=== PATIENT | female | born 1945 | race Caucasian/White ===

== ENCOUNTER → 2017-08-12 13:59 | Outpatient (CLI) | payer MEDICARE, BC, SELFPAY ==
--- NOTE | 2017-08-12 09:14 | US_ITS ---
US breast RT complete ORDERING PHYSICIAN : Austen Caceres MD PATIENT AGE: 72 years GENDER: Female COMPARISON: Previous bilateral mammogram: December 2015 and March 2014. June 2016 left mammogram... Previous left breast ultrasound 2011 INDICATION: Palpable area 3:00 outer breast. The previously. Not palpable today TECHNIQUE: Ultrasound survey of entire right breast including axillary survey. Particular attention directed towards the palpable area at 3 days 4:00 Note:. This study cannot be dictated until now because error in the [facility] order ========= RIGHT BREAST ULTRASOUND including axillary survey: The previously noted palpable area was not as palpable to the patient today. However there is a ovoid relative hypoechoic focus within the deep portion subcutaneous fat just beneath, inferior dermal layer which seems to correspond with the palpable area.... This likely reflects a semisolid or thick proteinaceous sebaceous cyst in this location and this appearance. This elongated area length measures just over 5 mm but only 1.7 mm AP. It is seen at the 4 o'clock position and seems to correspond with the palpable area. On strongly favor benign features such as sebaceous cyst. This can be followed clinically. If enlarges than a follow-up ultrasound be warranted. Otherwise no cystic or solid area of concern at right breast. No architectural distortion Axillary survey reveals no suspicious areas. Benign-appearing lymph nodes. Would suggest bilateral annual mammogram within the next 4- 6 months as The patient is due for bilateral mammogram noting her last bilateral mammogram performed December 2015. ---- IMPRESSION: --- Right breast Ultrasound only: 1.. Small ovoid area within subcutaneous fat just beneath, deep dermal layer. This corresponds to the palpable area at 3- 4 o'clock position & This by far most likely a small benign sebaceous cyst. It can be followed Clinically.\ 2. Remainder the breast unremarkable by today's ultrasound\ BI-RADS Category: 2 Benign Finding(s) RECOMMENDED FOLLOW-UP: 6M - 6 MONTH FOLLOW-UP Patient due for bilateral mammogram. Suggest routine bilateral mammogram within the next 4-6 months Note. This this study Could not be dictated previously due to error of the [facility] order (A letter has been sent to the patient regarding results of the study.)
== END ==
PROVIDERS: Family Provider Family Medicine; PCP Family Medicine; Visit Provider Nurse Practitioner Obstetrics & Gynecology
DX: N63.41 Unspecified lump in right breast, subareolar (principal)
CPT/HCPCS: 76641

== ENCOUNTER → 2017-09-17 14:52 | Outpatient (CLI) | payer MEDICARE, BC, SELFPAY | PROVIDERS: PCP Family Medicine; Visit Provider Family Medicine | DX: R42 Dizziness and giddiness (principal) | CPT/HCPCS: 93225; 93226 ==

== ENCOUNTER → 2018-02-17 09:19 | Outpatient (CLI) | payer MEDICARE, BC, SELFPAY ==
--- NOTE | 2018-02-17 09:21 | MM_ITS ---
MM Dig screening mamm BI w/CAD ORDERING PHYSICIAN : Austen Caceres MD PATIENT AGE: 72 years GENDER: Female COMPARISON: Bilateral digital mammogram: December 2011, January 2013, March 2014, December left breast mammogram Also a previous right breast ultrasound 08/12/2017 INDICATION: ITS.REASON: Routine Screening Mammogram no new complaints. Takes Premarin. Noncontributory family history TECHNIQUE: Standard CC and MLO images were obtained. R2 CAD reviewed. FINDINGS: Mild to moderate residual fibroglandular elements. No suspicious dominant mass or discrete suspicious calcifications evident. RIGHT BREAST: Small focal area of density superior breast on the MLO view is noted and labeled A.. I suspect is most likely at the lateral breast but Most likely is a summation shadow but would benefit from spot views since it is more evident than on previous studies.. I recommend MLO, 90 degree spot views along with cc spot of the lateral and possibly central breast. Stable area of relative density at retroareolar region on MLO view & not of concern. Unchanged LEFT BREAST:Stable left breast no new findings follow-up in one year IMPRESSION: -...... 1. Right breast.: Focal area of density superior right breast on MLO view. Suspect summation shadow but it does warrant spot views to further evaluate 2. Left breast. Stable/Unchanged. Follow-up in one year BI-RADS Category: 0 Need Additional Imaging Evaluation RECOMMENDED FOLLOW-UP: IMM - IMMEDIATE FOLLOW-UP RECOMMENDED (A letter has been sent to the patient regarding results of the study.)
== END ==
PROVIDERS: Family Provider Family Medicine; PCP Family Medicine; Visit Provider Nurse Practitioner Obstetrics & Gynecology
DX: Z12.31 Encounter for screening mammogram for malignant neoplasm of breast (principal)
CPT/HCPCS: 77067

== ENCOUNTER → 2018-03-05 14:36 | Outpatient (CLI) | payer MEDICARE, BC, SELFPAY ==
--- NOTE | 2018-03-05 14:38 | MM_ITS ---
MM Dig mamm DX unilat RT CAD INDICATION: Follow-up abnormal mammogram ORDERING PHYSICIAN: Austen Caceres MD PATIENT AGE: 72 years COMPARISON: 02/17/2018 TECHNIQUE: Problem solving views of the right breast FINDINGS: The area of asymmetric density in the lateral aspect of the right breast and in the superior aspect of the right breast does appear to compress out as fibroglandular tissue no malignant appearing mass or malignant appearing microcalcification is evident. IMPRESSION: No convincing evidence of malignancy. Asymmetry in the right breast is probably due to asymmetric fibroglandular tissue BI-RADS Category: 3 Probably Benign Finding Short Term Follow-up RECOMMENDED FOLLOW-UP: 6M - 6 MONTH FOLLOW-UP (A letter has been sent to the patient regarding results of the study.)
== END ==
PROVIDERS: PCP Family Medicine; Visit Provider Nurse Practitioner Obstetrics & Gynecology
DX: R92.2 Inconclusive mammogram (principal)
CPT/HCPCS: 77065

== ENCOUNTER → 2019-02-25 15:35 | Outpatient (CLI) | payer MEDICARE, BC, SELFPAY ==
--- NOTE | 2019-02-25 15:37 | US_ITS ---
PROCEDURE: US BREAST RT COMPLETE CLINICAL INDICATION: Pt insisted on US -hx of abnormality in Rt Breast COMPARISON: US breast RT complete from 08/12/2017 MM DIG SCREENING MAMM BI W/CAD from 02/25/2019 FINDINGS: No cystic or solid nodules evident. Previously subcutaneous nodule at 4 o'clock is not demonstrated on today's exam IMPRESSION: Negative ultrasound the right breast Dictated by: Leonel Byrd MD 03/02/2019 10:30 Electronically signed by Leonel Byrd MD in [place] 03/02/2019 10:30
--- NOTE | 2019-02-25 15:37 | MM_ITS ---
PROCEDURE: MM DIG SCREENING MAMM BI W/CAD Patient Age:73Y CLINICAL INDICATION: Routine Screening Mammogram 73-year-old taking Premarin. No new complaints. Noncontributory family history.. COMPARISON: DMDXUAVL DIG MAMM-DX UNI ADD VIEWS-LT from 02/13/2012 DMSB DIG MAMM-SCREEN JOSH from 01/28/2013 DMSB DIG MAMM-SCREEN JOSH from 04/19/2014 DMSB DIG MAMM-SCREEN JOSH from 01/02/2016 DMDXUL DIG MAMM-DX UNI-LT W/CAD from 07/16/2016 [facility] MM Dig screening mamm BI w/CAD from 02/17/2018 DXRT MM Dig mamm DX unilat RT CAD from 03/05/2018 TECHNIQUE: Standard CC and MLO images were obtained. R2 CAD reviewed. FINDINGS: Of [id number] residual fibroglandular elements. No significant new areas of concern either breast but no new or dominant suspicious mass but no suspicious calcifications but Right breast. No new findings Stable fibroglandular elements retroareolar region MLO view, unchanged since studies dating back to 2013. Also note this minor area of density dissipate on the CC view. Left breast: No new findings. IMPRESSION: Stable bilateral mammogram. No significant new areas of concern. Bilateral follow-up 1 year recommended BI-RAD Category: 2 Benign Finding(s) FOLLOW-UP: 1YR 1 Year Follow-up (A letter has been sent to the patient regarding results of the study.) Dictated by: Дмитрий Hill MD 02/28/2019 10:21 Electronically signed by Дмитрий Hill MD in [place] 02/28/2019 10:21
== END ==
PROVIDERS: PCP Family Medicine; Visit Provider Nurse Practitioner Obstetrics & Gynecology
DX: Z12.31 Encounter for screening mammogram for malignant neoplasm of breast (principal); R92.8 Other abnormal and inconclusive findings on diagnostic imaging of breast; Z87.898 Personal history of other specified conditions
CPT/HCPCS: 76641; 77067

== ENCOUNTER 2019-12-30 10:00 | Outpatient (RCR) | payer MEDICARE, BC, SELFPAY | END 2019-12-30 10:47 | disposition home or self-care (01) | LOC: PT 10:00 | PROVIDERS: PCP Family Medicine; Visit Provider Orthopaedic Surgery | DX: M25.562 Pain in left knee (principal); Z96.652 Presence of left artificial knee joint | CPT/HCPCS: 97010; 97014; 97016; 97110; 97140; 97163; 97164; 97530; G0283 ==

== ENCOUNTER → 2020-01-31 10:04 | Outpatient (CLI) | payer MEDICARE, BC, SELFPAY ==
--- NOTE | 2020-01-31 10:04 | MM_ITS ---
PROCEDURE: MM DIG SCREENING MAMM BI W/CAD Digital Breast Tomosynthesis Included CLINICAL INDICATION: Routine Screening Mammogram There is no personal or family history of breast cancer. The patient currently is on Premarin. COMPARISON: MG [facility] MM Dig screening mamm BI w/CAD from 02/17/2018 MG DXRT MM Dig mamm DX unilat RT CAD from 03/05/2018 MG MM DIG SCREENING MAMM BI W/CAD from 02/25/2019 TECHNIQUE: Standard CC and MLO images and 3D Tomosynthesis was obtained. R2 CAD reviewed. FINDINGS: Mild to moderate scattered fibroglandular densities are seen in both breasts. There are 2 mole markers right breast. There is a mole marker left breast. A benign-appearing calcification left breast. There is no suspicious lesion and no suspicious microcalcifications. IMPRESSION: Fibrofatty parenchyma with no suspicious lesions seen BI-RAD Category: 2 Benign Finding(s) FOLLOW-UP: 1YR 1 Year Follow-up (A letter has been sent to the patient regarding results of the study.) Dictated by: Dr. Fuentes Lane MD 02/02/2020 09:[address] MD in [place] 02/02/2020 09:41
== END ==
PROVIDERS: PCP Family Medicine; Visit Provider Nurse Practitioner Obstetrics & Gynecology
DX: Z12.31 Encounter for screening mammogram for malignant neoplasm of breast (principal)
CPT/HCPCS: 77063; 77067

== ENCOUNTER → 2020-02-08 09:42 | Outpatient (CLI) | payer MEDICARE, BC, SELFPAY ==
--- NOTE | 2020-02-08 09:47 | XR_ITS ---
PROCEDURE: XR DEXA AXIAL SKELETON CLINICAL HISTORY: Postmenopausal COMPARISON: KALEN QUINTERO BONE3 BONE DENSITOMETRY(HIP:LT SPINE from 12/27/2016 FINDINGS: The right hip BMD is 0.786 with a T-score of -0.6. The left hip BMD is 0.762 with a T-score of -1.5. The lumbar spine BMD is 1.108 with a T-score of 0.6. Previously the lowest bone density was in the left femoral neck with a T-score of -0.9.. The bone mineral density has slightly decreased compared to the previous study IMPRESSION: This patient is considered osteopenic according to the World Health Organization criteria. Bone density is between 10 and 25 percent below young normal. Fracture risk is moderate. Treatment is advised. Based on these results a follow-up exam is recommended in 2 year. Dictated by: Leonel Byrd MD 02/10/2020 08:56 Leonel Byrd MD in [place] 02/10/2020 08:56
== END ==
PROVIDERS: PCP Family Medicine; Visit Provider Family Medicine
DX: M85.89 Other specified disorders of bone density and structure, multiple sites (principal)
CPT/HCPCS: 77080

== ENCOUNTER → 2020-08-15 09:54 | Outpatient (CLI) | payer MEDICARE, BC, SELFPAY ==
--- NOTE | 2020-08-15 10:02 | XR_ITS ---
PROCEDURE: XR CERVICAL SPINE 5V CLINICAL INDICATION: PHARYNGOESOPHAGEAL DYSPHAGIA COMPARISON: No exams were available for comparison FINDINGS: There is normal curvature and alignment. C1 through C7 appear intact. There is multilevel narrowing and sclerosis of the apophyseal joints. However oblique view show no significant neural foraminal narrowing on either side. There is no significant disc space narrowing throughout the cervical spine. The prevertebral soft tissues are normal and the odontoid is normal. IMPRESSION: Multilevel osteoarthritic changes of the apophyseal joints Dictated by: Dr. Fuentes Lane MD 08/15/2020 10:[address] MD in [place] 08/15/2020 10:43
== END ==
PROVIDERS: PCP Family Medicine; Visit Provider Family Medicine
DX: R13.14 Dysphagia, pharyngoesophageal phase (principal)
CPT/HCPCS: 72050

== ENCOUNTER → 2020-09-08 09:45 | Outpatient (CLI) | payer MEDICARE, BC, SELFPAY | PROVIDERS: Visit Provider Internal Medicine Gastroenterology | DX: Z01.812 Encounter for preprocedural laboratory examination (principal); Z20.822 Contact with and (suspected) exposure to COVID-19; Z13.810 Encounter for screening for upper gastrointestinal disorder; R13.10 Dysphagia, unspecified | CPT/HCPCS: U0003 ==

== ENCOUNTER 2020-09-11 11:16 | Day surgery (SDC) | payer MEDICARE, BC, SELFPAY ==
[2020-09-11] VITALS (7 sets, daily range): BP systolic 110–146; BP diastolic 73–84; PULSE 68–90; RESP 16–18; TEMP 36.3–36.6; O2SAT 93–98; BMI 28.3
--- NOTE | 2020-09-11 12:24 | P.PN_ITS ---
[facility] Anesthesia Checklist - Patient Identification Patient Identification: Arm Band - Structural Data Admitted From: Home Planned Operative Procedure/s: egd Consent for Planned Operative Procedure(s) Verified: Yes Verified Documents: Surgical Consent, History and Physical - NPO Status Verified Time NPO: 00:00 - Additional verifications Anesthesia Reactions: No - Airway Assessment C-Spine Mobility Assessed: Yes (mp2) TMJ Mobility Assessed: Yes Dentition: Good Dentition - Neurological Assessment Level of Consciousness: Awake, Alert - Anesthesia Plan Anesthesia Risk discussed: Yes Anesthesia Plan: Verified ASA Class: II Anesthesia Type: MAC [facility] History I have reviewed the patient's past medical history: Yes Medical History: Reports:: Hyperlipidemia, Hypertension Denies:: Cancer, Diabetes Mellitus Type 1, Diabetes Mellitus Type 2, Internal Pacemaker, MRSA, Seizures *Have you ever received a pneumonia vaccine?: Yes *Have you received a flu vaccine this season?: No Other Medical History: Reports: Arthritis, Hypothyroidism Anesthesia experience/problems:: nac Laterality Cases: Bilateral: Arthroscopy Knee, Tonsillectomy Other Surgeries: Yes: Tubal Ligation. No: Pacemaker Amputation: No Fractures: No - *Social History Last grade of school completed: Advanced degree Smoking Status: Never smoker Alcohol Intake: current Alcohol Intake Frequency:: holidays/special occasions only Substance Use Type: denies use *Occupational Status:: retired Housing: house Household Members: spouse, family *Travel in the last 8 weeks: None Family Hx:: Coronary Artery Disease, Heart Attack [employer] history: Tubal Ligation
--- NOTE | 2020-09-11 12:37 | HMH.PROC ---
[facility] Procedure Note Procedure Note:: Upper Endoscopy Procedure Report: Esophagogastroduodenoscopy with cold biopsies and TTS balloon dilation Endoscopost: Tereso Gao II, MD Referring Physician: Cameron Manning MD Date of Procedure: September 11, 2020 Equipment: Olympus GIF 190 standard upper endoscope Sedation: MAC sedation Indications: Mrs. Herman is a 75-year-old female with dysphagia that began 6 to 8 weeks ago. She does report burning in her throat but also some intermittent burning in the epigastrium. She describes this as heartburn. She did take omeprazole for 2 weeks and now takes this when necessary. She did have some dysphagia yesterday. She has some minor bloating but reports no belching or globus sensation. She reports no nausea or early satiety. This is her first upper endoscopy. She reports regular bowel function. Procedure: Prior to the procedure, a history and physical exam was performed, and patient's medications and allergies were reviewed. The risks, benefits and alternatives of the sedation and procedure were discussed with the patient. All questions were answered and informed consent was obtained. The patient was brought to the procedure room. Patient identification and proposed procedure were verified by the physician and the nurse. The patient was placed in a left lateral decubitus position and the scope was passed under direct vision. Throughout the procedure, the patient's blood pressure, pulse, and oxygen saturations were monitored continuously. The upper GI endoscopy was accomplished without difficulty. The patient tolerated the procedure well. Findings: The scope was passed directly into the upper esophagus and advanced to the third portion of the duodenum. The post bulbar duodenum and duodenal bulb were normal with normal mucosa and conniventes. The scope was withdrawn through a normal duodenal bulb and pylorus into the stomach. There was some bile reflux with linear reactive gastropathy of the antrum and body of the stomach. The remainder of the fundus of the stomach was grossly normal. Upon retroflexion there was a large hiatal hernia (6 cm). There were some linear Clif's erosions at the diaphragmatic hiatus. The diaphragmatic hiatus was at 40 cm. The gastroesophageal junction/top of the gastric folds was at 34 cm. Cold biopsies were taken from the antrum and lesser curvature of the stomach. The scope was then withdrawn into the esophagus. There was no evidence of reflux esophagitis or Alvarez's. There was a distal esophageal ring. There were tertiary contractions and evidence of moderate esophageal dysmotility. The entire esophagus was dilated to 60 [place]/20 mm with a TTS hydrostatic balloon. There was some resistance at the cricopharyngeus. The remainder of the esophageal mucosa was normal. Impression: 1. Schatzki's ring dilated to 20 mm 2. Cricopharyngeal spasm status post dilation to 20 mm 3. Nonerosive GERD with moderate esophageal dysmotility and large 6 cm hiatal hernia with Clif's erosions 4. Bile reflux with mild linear reactive gastropathy Plan: I will follow-up the biopsies. The patient does have some functional reflux. Given the size of her hiatal hernia, if she has recurrence of her dyspepsia and dysphagia, I would consider minimally invasive (robotic or laparoscopic) hiatal hernia repair. I would also like to check hemoglobin/hematocrit and iron studies.
[2020-09-11 13:50] LABS: Hematocrit 37.3 % (37.0-47.0); Hemoglobin 11.5 g/dL (12.2-16.2)
[2020-09-11 14:46] LABS: Iron 96 ug/dL (37-170)
[2020-09-11 14:55] LABS: Total Iron Binding Capacity 360 ug/dL (265-497)
[2020-09-11 17:35] LABS: Ferritin 20.7 ng/ml (11.1-264)
== END 2020-09-11 13:55 | disposition home or self-care (01) ==
LOC: OUTP 11:19
PROVIDERS: PCP Family Medicine; Visit Provider Internal Medicine Gastroenterology
PROC: 0DJ08ZZ Inspection of Upper Intestinal Tract, Via Natural or Artificial Opening Endoscopic (ICD-10-PCS; CPT 43235; principal; 2020-09-11 12:00)
DX: K22.2 Esophageal obstruction (principal); J39.2 Other diseases of pharynx; K22.4 Dyskinesia of esophagus; K44.0 Diaphragmatic hernia with obstruction, without gangrene; K22.10 Ulcer of esophagus without bleeding; K21.9 Gastro-esophageal reflux disease without esophagitis; K31.9 Disease of stomach and duodenum, unspecified; E78.5 Hyperlipidemia, unspecified; I10 Essential (primary) hypertension; E03.9 Hypothyroidism, unspecified; M19.90 Unspecified osteoarthritis, unspecified site; Z82.3 Family history of stroke
CPT/HCPCS: 43239; 43249; 36415; 82728; 83540; 83550; 85014; 85018; 88305; C1726

== ENCOUNTER → 2020-12-04 08:03 | Outpatient (CLI) | payer MEDICARE, BC, SELFPAY | PROVIDERS: PCP Family Medicine; Visit Provider Family Medicine | DX: Z20.822 Contact with and (suspected) exposure to COVID-19 (principal) | CPT/HCPCS: U0003 ==

== ENCOUNTER 2021-01-03 10:00 | Outpatient (RCR) | payer MEDICARE, BC, SELFPAY ==
--- NOTE | 2020-12-06 11:02 | HMH.PTOPEV ---
PT Outpatient Evaluation Rehab PT Outpatient Evaluation Start: 12/06/20 10:48 Freq: Status: Active Protocol: Document 12/06/20 10:48 PETER (Rec: 12/06/20 11:02 PETER [id number]) Electronically Signed By Leo Christiansen, PT 12/06/20 10:48 Outpatient Therapy Subjective History Subjective History Patient is a 75 year old female presenting to outpatient PT with reports of acute LBP without radicular symptoms of inidious onset. Patient reports hx of recurring LBP episodes with LLE radicular symptoms. She most recently completed a dose steriods which have provided some significant relief. No recent imaging to report. 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 Comorbidities include hx of hiatal hernia, OA, B TKA, HTN and HL. Chief Complaint Pain Symptom Type Ache,Sharp Symptoms Relieved By Rest/Positioning,Heat,OTC Meds Symptoms Aggravated By Standing,Bending/Stooping, Physical Activity,Walking, Lifting Prior Functional Limitations None Current Functional Limitations Lifting,Housework,Standing, Walking,Bending/Stooping Symptom Description Intermittent Level of pain today (0-10) 0 Pain scale - at its best (0-10) 0 Pain scale - at its worst (0-10) 9 Lumbopelvic Eval Posture Thoracic Spine Posture Standing Position Neutral Lumbar Spine Posture Standing Position Increased Lordosis Assistive device Assistive Devices None / NA Palapation tenderness bilateral Lumbar/Sacral Palpation Findings Tenderness Lumbar/Sacral Palpation Overall Comment B SIJ/upper gluteal mm 2/4 Accessory Movement S1 bilateral Range of Motion Lumbar Spine ROM Reason Not Measured Within Functional Limits Manual Muscle Test Bilateral Knee Extension Strength Grade 5 Normal Knee Flexion Strength Grade 5 Normal Hip Flexion Strength Grade 5 Normal Extensor Hallucis Longus Strength Grade 5 Normal Ankle Dorsiflexion Strength Grade 5 Normal Gastronemius/Soleus Strength Grade 5 Normal Special Tests Hip Travis (JOELLE) Test Positive Left,Positive Right Hip Kimmie Test Positive Left,Positive Right Hip Piriformis Test Positive Left,Positive Right Sciatic Nerve Tension Test Negative Left,Negative Right Odilon Test
== END 2021-01-03 10:05 | disposition home or self-care (01) ==
LOC: PT 10:00
PROVIDERS: PCP Family Medicine; Visit Provider Family Medicine
DX: M54.5 Low back pain (principal)
CPT/HCPCS: 20561; 97010; 97014; 97110; 97163; G0283

== ENCOUNTER → 2021-01-30 12:55 | Outpatient (CLI) | payer MEDICARE, BC, SELFPAY ==
--- NOTE | 2021-01-30 12:56 | MM_ITS ---
PROCEDURE INFORMATION: Exam: MG Bilateral Screening 3D Mammography Exam date and time: 01/30/2021 12:56 PM Age: 75 years old Clinical indication: Encounter for screening mammogram for malignant neoplasm of breast TECHNIQUE: Imaging protocol: Bilateral screening tomosynthesis and 2D mammography including computer-aided detection (CAD) when performed. COMPARISON: No relevant prior studies available. FINDINGS: MAMMOGRAPHY: Breast composition: The breast tissue is heterogeneously dense, which may obscure small masses. Mass: None. Architectural distortion: None. Calcifications: No suspicious calcifications. Asymmetric density: None. Skin thickening: None. Axillary adenopathy: None. IMPRESSION: No mammographic evidence of malignancy. Annual screening is recommended unless otherwise clinically indicated. ASSESSMENT: BI-RADS Category 1: Negative
== END ==
PROVIDERS: PCP Family Medicine; Visit Provider Nurse Practitioner Obstetrics & Gynecology
DX: Z12.31 Encounter for screening mammogram for malignant neoplasm of breast (principal)
CPT/HCPCS: 77063; 77067

== ENCOUNTER 2021-05-02 07:20 | Emergency (ER) | payer MEDICARE, BC, SELFPAY ==
[2021-05-02] VITALS (11 sets, daily range): BP systolic 113–141; BP diastolic 68–124; PULSE 69–80; RESP 15–18; TEMP 36.9; O2SAT 93–98; BMI 28.3
--- NOTE | 2021-05-02 07:32 | CT_ITS ---
FINAL REPORT TECHNIQUE: Axial images were performed through the brain.This study was performed with techniques to keep radiation doses as low as reasonably achievable, (ALARA). Individualized dose reduction techniques using automated exposure control or adjustment of mA and/or kV according to the patient''s size were employed. CLINICAL HISTORY: fall, confusion FINDINGS: There is mild atrophy. The ventricles are normal in size for the degree of atrophy. There is no extra-axial fluid or midline shift. There is no evidence of acute hemorrhage or mass. There is mild mucoperiosteal thickening in the left maxillary sinus. There are hypoplastic mastoid air cells. There is no acute osseous abnormality. IMPRESSION: Atrophy. No acute intracranial process. Reviewed, Interpreted and Dictated by Camron iWlson MD Transcribed by Curt Sy Authenticated by Camron Wilson MD on 05/02/2021 08:12:33 AM [facility]
--- NOTE | 2021-05-02 07:32 | CT_ITS ---
FINAL REPORT CLINICAL HISTORY: fall, confusion FINDINGS: CT CERVICAL SPINE Axial CT images were performed through the cervical spine. Coronal and sagittal reformats were submitted and reviewed. This study was performed with techniques to keep radiation doses as low as reasonably achievable (ALARA). Individualized dose reduction techniques using automated exposure control or adjustment of mA and/or kV according to the patient's size were employed. FINDINGS: There is no acute fracture or subluxation. The vertebral alignment is normal. There is moderate disc space narrowing at C4-5 and C5-6 with posterior osteophyte formation. At C4-5 there is moderate endplate hypertrophy eccentric to the left with asymmetric facet hypertrophy and moderate left neural foraminal narrowing. At C5-6 there is endplate hypertrophy with mild bilateral neural foraminal narrowing. There is subcutaneous emphysema throughout the right cervical region of uncertain significance. No pneumothorax is seen on the limited images through the lung apices. IMPRESSION: No acute fracture. Bilateral facet hypertrophy, right greater than left. Subcutaneous emphysema throughout the right cervical region of uncertain significance. No pneumothorax identified on the limited images through the lung apices. Reviewed, Interpreted and Dictated by Camron Wilson MD Transcribed by Curt Sy Authenticated by Camron Wilson MD on 05/02/2021 08:21:[address] [facility]
--- NOTE | 2021-05-02 07:34 | PC.NURSE ---
rad notified of CT orders on pt
--- NOTE | 2021-05-02 07:38 | PC.NURSE ---
pt to CT
[2021-05-02 07:47] LABS: Basophils % 0.4 % (0.1-2.0); Eosinophils # 0.1 K/mm3 (0.0-0.4); Eosinophils % 0.5 % (0.1-12.0); Hematocrit 37.8 % (37.0-47.0); Hemoglobin 12.1 g/dL (12.2-16.2); Lymphocytes # 1.8 K/mm3 (0.7-4.5); Lymphocytes % 16.6 % (10-50); Mean Corpuscular HGB Conc 32.1 g/dL (31.8-35.4); Mean Corpuscular Volume 93.5 fl (81-99); Mean Platelet Volume 8.2 fl (7.4-10.4); Monocytes # 0.7 K/mm3 (0.1-1.0); Neutrophils # 8.4 K/mm3 (1.8-7.8); Neutrophils % 76.5 % (37.0-80.0); Platelet Count 290 K/mm3 (142-424); Red Blood Count 4.04 M/mm3 (4.20-5.40); Red Cell Distribution Width 13.7 % (11.5-17.5)
[2021-05-02 07:57] LABS: Alanine Aminotransferase 30 U/L (12-78); Albumin Level 4.6 g/dl (3.5-5.0); Albumin/Globulin Ratio 1.6 (1.1-1.8); Alkaline Phosphatase 92 U/L (38-126); Aspartate Amino Transferase 53 U/L (14-36); Bilirubin,Total 0.7 mg/dl (0.2-1.3); Blood Urea Nitrogen 15 mg/dl (7-17); Carbon Dioxide 30 mmol/L (22.0-30.0); Chloride 90 mmol/L (98-107); Creatinine Clearance Estimated 53 mL/min (50-200); Estimated Glomerular Filt Rate 70 ml/min (>60); GFR (African American) 85 ML/MIN (>60); Globulin 2.9 g/dL (1.3-3.2); Glucose 96 mg/dl (74-100); Sodium 127 mmol/L (136-145); Total Protein,Serum 7.5 g/dl (6.3-8.2)
--- NOTE | 2021-05-02 08:45 | XR_ITS ---
FINAL REPORT CLINICAL HISTORY: cough FINDINGS: SINGLE VIEW CHEST The heart is normal in size. The mediastinum is unremarkable. There is a little bit of atelectasis at the lung bases. There is no pneumothorax. IMPRESSION: Bibasilar atelectasis. Reviewed, Interpreted and Dictated by Camron Wilson MD Transcribed by Liliane Shannon Authenticated by Camron Wilson MD on 05/02/2021 10:12:08 AM [facility]
--- NOTE | 2021-05-02 08:45 | HMH.EDAMS ---
ED Disposition Clinical Impression: Hyponatremia Altered mental status Qualifiers: Altered mental status type: transient alteration of awareness Qualified Code(s): R40.4 - Transient alteration of awareness Disposition: Home, Self-Care Condition on Discharge: Good Instructions: DI for Altered Mental Status Referrals: Mikey Manning MD [Primary Care Provider] - - Critical Care Critical Care Time: No Attestation: On 05/02/21, the high probability of a clinically significant, sudden or life threatening deterioration of the following system(s) required my full and direct attention, intervention and personal management. The time I documented below is in addition to time spent performing reported procedures but includes the following listed in this critical care notation. Medical Decision Making - Medical Records Medical records reviewed: Yes: I reviewed the patient's medical records. - Juan Inquiry Pt receiving controlled substance: No Vital Signs: 05/02/21 07:21 05/02/21 07:26 05/02/21 07:30 Temperature 98.4 F Temperature Source Oral Pulse Rate 80 73 Pulse Rate [Right Radial] 80 Respiratory Rate 18 15 15 Blood Pressure 139/70 129/75 Blood Pressure [Right Arm] 139/70 Blood Pressure Mean 101 96 Blood Pressure Mean [Right Arm] 93 Blood Pressure Source [Right Arm] Automatic Cuff Blood Pressure Position [Right Arm] Sitting 02 Sat by Pulse Oximetry 93 L 95 96 Oxygen Delivery Method Room Air 05/02/21 08:00 05/02/21 08:30 05/02/21 09:00 Temperature Temperature Source Pulse Rate 72 78 75 Pulse Rate [Right Radial] Respiratory Rate 16 16 16 Blood Pressure 137/87 125/85 129/75 Blood Pressure [Right Arm] Blood Pressure Mean 103 Blood Pressure Mean [Right Arm] Blood Pressure Source [Right Arm] Blood Pressure Position [Right Arm] 02 Sat by Pulse Oximetry 95 98 98 Oxygen Delivery Method 05/02/21 09:52 05/02/21 10:00 05/02/21 10:30 Temperature Temperature Source Pulse Rate 71 69 80 Pulse Rate [Right Radial] Respiratory Rate 16 Blood Pressure 113/90 123/75 141/124 H Blood Pressure [Right Arm] Blood Pressure Mean 97 97 129 Blood Pressure Mean [Right Arm] Blood Pressure Source [Right Arm] Blood Pressure Position [Right Arm] 02 Sat by Pulse Oximetry 96 98 97 Oxygen Delivery Method 05/02/21 10:43 Temperature Temperature Source Pulse Rate 69 Pulse Rate [Right Radial] Respiratory Rate 18 Blood Pressure 117/71 Blood Pressure [Right Arm] Blood Pressure Mean 89 Blood Pressure Mean [Right Arm] Blood Pressure Source [Right Arm] Blood Pressure Position [Right Arm] 02 Sat by Pulse Oximetry 98 Oxygen Delivery Method - Lab Data Lab Results 05/02/21 07:30: WBC 11.0 H, RBC 4.04 L, Hgb 12.1 L, Hct 37.8, MCV 93.5, MCH 30.0, MCHC 32.1, RDW 13.7, Plt Count 290, MPV 8.2, Neut % (Auto) 76.5, Lymph % (Auto) 16.6, [place] % (Auto) 6.0, Eos % (Auto) 0.5, Baso % (Auto) 0.4, Neut # (Auto) 8.4 H, Lymph # (Auto) 1.8, [place] # (Auto) 0.7, Eos # (Auto) 0.1, Baso # (Auto) 0.0 05/02/21 07:30: Sodium 127 L, Potassium 4.0, Chloride 90 L, Carbon Dioxide 30, Anion Gap 11.0, BUN 15, Creatinine 0.80, Estimated Creat Clear 53, Estimated GFR 70, Est GFR ( Amer) 85, Glucose 96, Calcium 10.0, Total Bilirubin 0.7, AST 53 H, ALT 30, Alkaline Phosphatase 92, Total Protein 7.5, Albumin 4.6, Globulin 2.9, Albumin/Globulin Ratio 1.6 05/02/21 10:43: Urine Color Yellow, Urine Appearance Clear, Urine pH 6.0, Ur Specific [place] 1.010, Urine Protein Negative, Urine Glucose (UA) Negative, Urine Ketones Negative, Urine Blood Negative, Urine Nitrate Negative, Urine Bilirubin Negative, Urine Urobilinogen 0.2, Ur Leukocyte Esterase Trace, Urine RBC None, Urine WBC Occasional, Ur Squamous Epith Cells 3-5, Urine Bacteria Trace Result diagrams: 05/02/21 07:30 05/02/21 07:30 - Radiology Data #1 Image(s): Chest Image Reviewed: Yes I reviewed the patient's r
--- NOTE | 2021-05-02 08:58 | PC.NURSE ---
on the phone with
[2021-05-02 10:56] LABS: Microscopic, Urine URINE MICROSCOPIC (MICROSCOPIC)
[2021-05-02 10:58] LABS: Appearance,Urine CLEAR (Clear); Bilirubin,Urine Negative (Negative); Blood, Urine Negative (Negative); Color,Urine YELLOW (Yellow); Glucose,Urine (UA) Negative (Negative); Ketones,Urine Negative (Negative); Leukocyte Esterase,Urine TRACE (Negative); Nitrate,Urine Negative (Negative); Protein,Urine Negative (Negative); Urobilinogen,Urine 0.2 EU/dl (0.2)
[2021-05-02 11:11] LABS: Bacteria,Urine Trace /lpf; WBC,Urine Occasional #/hpf (0-3)
== END 2021-05-02 12:05 | disposition home or self-care (01) ==
PROVIDERS: Emergency Provider Emergency Medicine; PCP Family Medicine
DX: R40.4 Transient alteration of awareness (principal); R41.82 Altered mental status, unspecified; E87.1 Hypo-osmolality and hyponatremia; W06.XXXA Fall from bed, initial encounter; Y92.013 Bedroom of single-family (private) house as the place of occurrence of the external cause; I10 Essential (primary) hypertension; E78.5 Hyperlipidemia, unspecified; Z79.899 Other long term (current) drug therapy
CPT/HCPCS: 70450; 71045; 72125; 80053; 81001; 85025; 99283

== ENCOUNTER → 2021-05-14 15:49 | Outpatient (CLI) | payer MEDICARE, BC, SELFPAY | PROVIDERS: PCP Family Medicine; Visit Provider Family Medicine | DX: U07.1 COVID-19 (principal); J02.9 Acute pharyngitis, unspecified | CPT/HCPCS: C9803; U0003; U0005 ==

== ENCOUNTER → 2022-02-19 10:06 | Outpatient (CLI) | payer MEDICARE, BC, SELFPAY ==
--- NOTE | 2022-02-19 10:07 | MM_ITS ---
PROCEDURE INFORMATION: Exam: MG Bilateral Screening 3D Mammography Exam date and time: 02/19/2022 10:06 AM Age: 76 years old Clinical indication: Screening. No family history of breast cancer. TECHNIQUE: Imaging protocol: Bilateral Screening tomosynthesis and 2D mammography including computer-aided detection (CAD) when performed. COMPARISON: 1. MG MM DIG SCREENING MAMM BI W/CAD 01/30/2021 12:59 PM 2. MG MM DIG SCREENING MAMM BI W/CAD 01/31/2020 10:03 AM 3. MG MM DIG SCREENING MAMM BI W/CAD 02/25/2019 4:13 PM 4. MG DXRT MM Dig mamm DX unilat RT CAD 03/05/2018 2:49 PM 5. MG DMDXUAVL DIG MAMM-DX UNI ADD VIEWS-LT 02/13/2012 1:15 PM 6. MG DMSB DIGITAL MAMM-SCREEN BILATERAL 12/28/2009 8:45 AM FINDINGS: MAMMOGRAPHY: Breast composition: The breasts are heterogeneously dense, which may obscure small masses. Mass: None. Architectural distortion: None. Calcifications: No suspicious calcifications. Asymmetric density: No developing asymmetry Skin thickening: None. Axillary adenopathy: None. IMPRESSION: No mammographic evidence of malignancy. Annual screening is recommended unless otherwise clinically indicated. ASSESSMENT: BI-RADS Category 1: Negative
== END ==
PROVIDERS: PCP Family Medicine; Visit Provider Nurse Practitioner Obstetrics & Gynecology
DX: Z12.31 Encounter for screening mammogram for malignant neoplasm of breast (principal)
CPT/HCPCS: 77063; 77067

== ENCOUNTER → 2022-03-25 14:42 | Outpatient (CLI) | payer MEDICARE, BC, SELFPAY ==
--- NOTE | 2022-03-25 14:49 | ECG_ITS ---
APPROVED REPORT Exam: Resting ECG HR:97 bpm ECG Measurements Heart Rate 97 AXES IL 203 P 70 QRSd 113 QRS 98 QT 375 T -26 QTc 429 Conclusion SINUS RHYTHM WITH OCCASIONAL VENTRICULAR PREMATURE COMPLEXES BORDERLINE RIGHT AXIS DEVIATION [QRS AXIS > 90] POSSIBLE ANTERIOR MYOCARDIAL INFARCTION , PROBABLY OLD [30 ms Q WAVE IN V3/V4, OR R < 0.2 mV IN V4] MODERATE T-WAVE ABNORMALITY, CONSIDER INFERIOR ISCHEMIA [-0.1+ mV T-WAVE IN II/aVF] ABNORMAL ECG UNCONFIRMED REPORT Electronically signed by : Abhishek Bai MD 03/25/2022 21:07:48
== END ==
PROVIDERS: PCP Psychiatry & Neurology Sleep Medicine; Visit Provider Psychiatry & Neurology Sleep Medicine
DX: I49.9 Cardiac arrhythmia, unspecified (principal)
CPT/HCPCS: 93005

== ENCOUNTER → 2022-04-03 10:08 | Outpatient (CLI) | payer MEDICARE, BC, SELFPAY | PROVIDERS: PCP Family Medicine; Visit Provider Family Medicine | DX: R94.31 Abnormal electrocardiogram [ECG] [EKG] (principal) | CPT/HCPCS: 93306 ==

== ENCOUNTER → 2022-09-27 08:55 | Outpatient (CLI) | payer MEDICARE, BC, SELFPAY ==
--- NOTE | 2022-09-27 09:05 | XR_ITS ---
FINAL REPORT TECHNIQUE: Bone densitometry calculations of the lumbar spine and left hip were obtained. CLINICAL HISTORY: osteopenia FINDINGS: Using L1-4, the bone mineral density of the spine is 1.06 g/cm2, corresponding to T-score of 0.1. Using the left hip, the bone mineral density of the femoral neck is 0.6 g/cm2, corresponding to a T-score of -2.1. Using the right hip, the bone mineral density of the femoral neck is 0.9 g/cm2, corresponding to a T-score of -0.4 NOTE: T-score: Standard deviation compared with peak bone mass of young adult mean. *Following the recommendations of the International Society of Bone densitometry, classification of hip BMD is based on the lower of two T-scores; total hip or femoral neck. IMPRESSION: Normal bone mineral density of the lumbar spine and right hip. Osteopenia of the left hip. Value may be artificially inflated of the lumbar spine due to sclerosis. FRAX 10 year fracture risk is 1.0% for a hip fracture and 8.8% for a major osteoporotic fracture. Reviewed, Interpreted and Dictated by Camron Wilson MD Transcribed by Sofia Montague Authenticated and [facility]
== END ==
PROVIDERS: PCP Family Medicine; Visit Provider Family Medicine
DX: M85.89 Other specified disorders of bone density and structure, multiple sites (principal)
CPT/HCPCS: 77080

== ENCOUNTER → 2023-02-20 15:00 | Outpatient (CLI) | payer MEDICARE, BC, SELFPAY ==
--- NOTE | 2023-02-20 15:00 | MM_ITS ---
PROCEDURE INFORMATION: Exam: MG Bilateral Screening 3D Mammography Exam date and time: 02/20/2023 2:54 PM Age: 77 years old Clinical indication: Screening mammogram TECHNIQUE: Imaging protocol: Bilateral Screening tomosynthesis and 2D mammography including computer-aided detection (CAD) when performed. COMPARISON: 1. MG MM DIG SCREENING MAMM BI W/CAD 02/19/2022 10:06 AM 2. MG MM DIG SCREENING MAMM BI W/CAD 01/30/2021 12:59 PM 3. MG MM DIG SCREENING MAMM BI W/CAD 01/31/2020 10:03 AM 4. MG MM DIG SCREENING MAMM BI W/CAD 02/25/2019 4:13 PM FINDINGS: MAMMOGRAPHY: Breast composition: There are scattered areas of fibroglandular density. Mass: None. Architectural distortion: No new or suspicious architectural distortion. Calcifications: No new or suspicious calcifications are present Asymmetric density: No new or suspicious asymmetric density is present Skin thickening: None. Axillary adenopathy: None. IMPRESSION: No mammographic evidence of malignancy. Recommend annual screening mammography unless otherwise clinically indicated. ASSESSMENT: BI-RADS category 1: Negative
== END ==
PROVIDERS: PCP Family Medicine; Visit Provider Nurse Practitioner Obstetrics & Gynecology
DX: Z12.31 Encounter for screening mammogram for malignant neoplasm of breast (principal)
CPT/HCPCS: 77063; 77067

== ENCOUNTER 2023-08-14 09:36 | Outpatient (CLI) | payer MEDICARE, BC, SELFPAY ==
[2023-08-14 10:21] LABS: Basophils # 0.1 K/mm3 (0-0.2); Basophils % 1.6 % (0.1-2.0); Eosinophils # 0.4 K/mm3 (0.0-0.4); Eosinophils % 8.5 % (0.1-12.0); Hematocrit 38.6 % (37.0-47.0); Hemoglobin 12.8 g/dL (12.2-16.2); Lymphocytes # 1.9 K/mm3 (0.7-4.5); Lymphocytes % 38.4 % (10-50); Mean Corpuscular HGB Conc 33.1 g/dL (31.8-35.4); Mean Corpuscular Hemoglobin 31.7 pg (27.0-31.2); Mean Corpuscular Volume 95.8 fl (81-99); Mean Platelet Volume 8.2 fl (7.4-10.4); Monocytes # 0.3 K/mm3 (0.1-1.0); Monocytes % 5.5 % (1.7-9.3); Neutrophils # 2.3 K/mm3 (1.8-7.8); Neutrophils % 45.9 % (37.0-80.0); Platelet Count 266 K/mm3 (142-424); Red Blood Count 4.02 M/mm3 (4.20-5.40)
[2023-08-14 10:57] LABS: Chloride 107 mmol/L (98-107); Potassium 4.3 mmoL/L (3.5-5.1); Sodium 137 mmol/L (136-145)
[2023-08-14 11:00] LABS: Alanine Aminotransferase 23 U/L (12-78); Albumin Level 3.8 g/dl (3.5-5.0); Albumin/Globulin Ratio 1.5 (1.1-1.8); Alkaline Phosphatase 77 U/L (38-126); Anion Gap 10.3 mEq/L (5-15); Aspartate Amino Transferase 39 U/L (14-36); Bilirubin,Total 0.7 mg/dl (0.2-1.3); Blood Urea Nitrogen 23 mg/dl (7-17); Calcium 9.6 mg/dl (8.4-10.2); Carbon Dioxide 24 mmol/L (22.0-30.0); Chol/HDL Ratio 1.8 (1-3.5); Cholesterol 147 mg/dl (140-200); Estimated Glomerular Filt Rate 81 ml/min (>60); GFR (African American) 98 ML/MIN (>60); Globulin 2.6 g/dL (1.3-3.2); Glucose 108 mg/dl (74-100); HDL Cholesterol 80 mg/dl (40-60); Total Protein,Serum 6.4 g/dl (6.3-8.2); Triglycerides 62 mg/dl (30-150); VLDL Cholesterol 12 mg/dL (0-40)
[2023-08-14 11:11] LABS: Direct LDL Cholesterol 63.22 mg/dL (100-129)
[2023-08-14 11:31] LABS: Thyroid Stimulating Hormone 3.19 uIU/mL (0.465-4.68)
== END 2023-08-14 23:59 | disposition home or self-care (01) ==
LOC: LAB 09:38
PROVIDERS: PCP Family Medicine; Visit Provider Family Medicine
DX: E78.00 Pure hypercholesterolemia, unspecified (principal); E03.9 Hypothyroidism, unspecified; I10 Essential (primary) hypertension
CPT/HCPCS: 36415; 80053; 80061; 84443; 85025

== ENCOUNTER 2024-11-25 15:00 | Outpatient (RCR) | payer MEDICARE, BC, SELFPAY ==
--- NOTE | 2024-11-01 17:01 | HMH.PTOPEV ---
PT Outpatient Evaluation Rehab PT Outpatient Evaluation Start: 11/01/24 15:18 Freq: Status: Active Protocol: Document 11/01/24 15:18 AMBER (Rec: 11/01/24 17:01 AMBER [id number]) E-signed By Henri Banks, PT Outpatient Therapy Subjective History Subjective History This is the initial PT eval or Park Case, 79 yowf who presents with c/o increased low back pain x ~ 3 mos this episode. She reports hx of chronic low back pain for many years, worse on the L side, but this episode has increased on the R side. She reports insidious onset of symptoms and symptoms are significantly worse with prolonged standing or walking. She reports pain is sharp and reduced with sitting. She reports PMH of HTN , OA, hypothyroid, B TKA. Chief Complaint Pain Symptom Type Sharp,Burning Symptoms Relieved By Rest/Positioning Symptoms Aggravated Standing,Physical Activity,Walking By Prior Functional None Limitations Current Functional Standing,Walking Limitations Symptom Description Activity Dependent Level of pain today 4 (0-10) Pain scale - at its 7 worst (0-10) Lumbopelvic Eval Palapation tenderness bilateral lumbar spinal Yes: 2/4 L4/5 - L5/S1 tenderness Lumbar/Sacral Tenderness Palpation Findings Accessory Movement L-spine Vertebrae Central P/A [place] Accessory Movements that Elicit Symptoms L4 bilateral L5 bilateral S1 bilateral Range of Motion Lumbar Spine Active 0-65 Flexion Range of Motion (degrees) Lumbar Spine Active 0-20 Extension Range of Motion (degrees) Left Lumbar Spine 0-20 Lateral Flexion Active Range of Motion (degrees) Right Lumbar Spine 0-20 Lateral Flexion Active Range of Motion (degrees) Manual Muscle Test Bilateral Knee Extension 5 Normal Strength Grade Knee Flexion 5 Normal Strength Grade Hip Flexion Strength 4 Good Grade Hip Abduction 4+ Good+ Strength Grade Hip Adduction 5 Normal Strength Grade Ankle Dorsiflexion 5 Normal Strength Grade Gastronemius/Soleus 5 Normal Strength Grade Special Tests Forward Bending Test Negative Left,Negative Right - Standing Hip Scouring ( Negative Left,Negative Right Quadrant) Test Hip Travis (JOELLE) Negative Left,Negative Right Test Hip Bowstring (Cram) Negative Left,Negative Right Test Sciatic Nerve Negative Left,Negative Right Tension Test Sacroiliac Joint Negative Left,Negative Right Compression Test Sacroiliac Joint Negative Left,Negative Right Distraction Test Lumbar Long [place] Positive Distraction Test/ Manual Traction Oswestry Index Section 1 Pain Intensity The pain is moderate and does not vary much Section 2 Personal Care ( my way of washing or dressing even though it causes Washing,Dresing) some pain Section 3 Lifting Pain prevents me from lifting weights off the floor Section 4 Walking I cannot walk more than one mile wihtout increasing pain Section 5 Sitting Pain prevents me from sitting for more than one hour Section 6 Standing I cannot stand more than 1 hour without increasing pain Section 7 Sleeping Because of my pain, my normal night's sleep is less than 6 hours sleep Section 8 Social Life My social life is normal but increases the degree of pain Section 9 Traveling I get extra pain while traveling, but it does not compel me to seek al Section 10 Changing Degreee of My pain is neither getting better or worse Pain Score and Risk Level Oswestry Sc 20 Oswestry Risk Level Moderate Disability Outpatient Therapy Assessment Impairments Problems/ Palpation Tenderness,Impaired Strength,Impaired Impairmments Endurance,Impaired Walking,Impaired Standing,Impaired Household Care,Impaired Recreational Activities, Subjective C/O Pain,Impaired Self Care/Self Management Prognosis Rehab Potential Good Comment Skilled therapy is indicated to reduce pain with standing, walking, and housework and to improve strength in order to aid pt return to PLOF. Clinical Impression Consistent with Yes Diagnosis Short Term Goals Number of Weeks 4 Decreased Palpation Yes: 1/4 B lumbosacral jt area Tenderness Increase Strength Yes: B LE at least 4+/5 throughout Increase Ability to Yes: 15 min without pain. Walk Improve Oswestry Yes: 17 or less Score Decrease Subjective Yes: 6/10 at worst in low back C/O Pain Patient to be Ind w/ Yes HEP Fisher Eel Goals Number of Weeks 8 Decreased Palpation Yes: 0/4 B lumbosacral area Tenderness Increase Strength Yes: B LE 5/5 throughout Increase Ability to Yes: 30 mins without pain Walk Improve Oswestry Yes: 14 or less Score Decrease Subjective Yes: 3/10 at worst in low back C/O Pain Patient to be Ind w/ Yes Advanced HEP Outpatient Therapy Plan of Care Treatment Plan May Include Therapeutic Exercise Yes Including Home Exercise Program Manual Therapy Yes Techniques Neuromuscular Re- Yes education Therapeutic Yes Activities to Return to Previous Functional/Work Level ADL/Self Care Yes Education Mechanical Traction Yes Thermal Modalities Yes Electrical Yes Stimulation Ultrasound/ Yes Phonophoresis Massage Yes Eval/Re-Eval Yes Frequency Times per week 2 Duration Number of Weeks 8 Addendums This patient is a No candidate for social or vocational rehab ? Patient/Guardian Yes verbally acknowledges understanding of treatment program and consents to further treatment? Patient/Guardian Yes verbally acknowledges understanding of diagnosis, prognosis and goals for treatment? Eval Complexity PT Charges 45439 - Moderate Complexity Shoulder/Elbow Eval Shoulder Objective Measurements Elbow Objective Measurements PHYSICIAN CERTIFICATION: I certify the specified therapy services for Park Browning Case are required, authorized, and reviewed every 30 days.
== END 2024-11-25 23:59 | disposition home or self-care (01) ==
LOC: PT 15:00
PROVIDERS: Visit Provider Family Medicine
DX: M54.50 Low back pain, unspecified (principal)
CPT/HCPCS: 97110; 97162

== ENCOUNTER 2024-12-23 09:06 | Outpatient (CLI) | payer MEDICARE, BC, SELFPAY ==
--- OUTSIDE RECORDS SUMMARY | 2024-10-18 05:45 | XMS_ITS ---
Author Organization [facility] Address [facility] [facility] [address] [place] [id number] Care Team Providers Care Sprinkler Fitter Name Role Phone Benitez Manning Primary Care Provider [phone] Allergies Allergen (clinical drug ingredient) Drug/Non Drug Allergy documented on EMR Reaction Allergy Type Onset Date Status angiotensin-converti ng enzyme inhibitor (FN) ARLEN Inhibitors cough Drug Allergy Active gabapentin Gabapentin confusion/dyspho chetan Drug Allergy Active Results Component Value Reference Range Notes P-Comprehensive Metabolic Pa alisha (CMP) Reviewed date:10/22/2024 12:18:27 PM Interpretation:gluc 111, bun 27 Performing Lab: Notes/Report: Test performed by [facility], [facility] [address] [place] [address] , [address], [place] [address] Jerson Virk MD, Environmental Science Program Director CLIA: [id number] Sodium 135 135-145 mmol/L Potassium 4.6 3.5-5.3 mmol/L Chloride 101 97-108 mmol/L CO2 23 22-32 mmol/L Glucose 111 65-99 mg/dL BUN 27 8-23 mg/dL Creatinine 0.84 0.50-1.00 mg/dL Calcium 10.1 8.6-10.4 mg/dL eGFR by Creatinine 71 >59 mL/min/1.73m2 Protein 7.4 6.0-8.3 g/dL Albumin 4.5 3.5-5.3 g/dL Alkaline Phosphatase 88 35-121 IU/L ALT (SGPT) 17 <5-47 IU/L AST (SGOT) 28 <5-40 IU/L Bilirubin, Total 0.4 <0.2-1.2 mg/dL A/G Ratio 1.6 1.1-2.5 P-Sed Rate (ESR) Reviewed date:10/22/2024 12:18:27 PM Interpretation:38 Performing Lab: Notes/Report: Test performed by [facility] [address] [place] [address] , [address], [place] [address] Jerson Virk MD, Environmental Science Program Director CLIA: [id number] Erythrocyte Sedimentation Ra te (ESR), Automated 38 <31 mm/hr P-Lipid Panel Reviewed date:10/22/2024 12:18:27 PM Interpretation:Normal Performing Lab: Notes/Report: Test performed by [facility], [address], [place] [address] Jerson Virk MD, Environmental Science Program Director CLIA: [id number] Cholesterol 140 <200 mg/dL Triglycerides 121 <150 mg/dL HDL Cholesterol 60 >39 mg/dL Cholesterol / HDL Ratio 2.33 0.00-4.44 Ratio Non-HDL Cholesterol 80 <130 mg/dL LDL Cholesterol (Calculation) 56 <130 mg/dL LDL Cholesterol Levels* Less than 100 mg/dL Optimal 100 to 129 mg/dL Near Optimal/ Above Optimal 130 to 159 mg/dL Borderline High 160 to 189 mg/dL High 190 mg/dL and above Very High * Categories as recommended by the 2004 ATPIII guidelines LDL/HDL Ratio 0.9 <3.3 Ratio LDL Cholesterol Patient History Test Date: 10/18/2024 LDL Results: 56 Units: mg/dL % Change: - P-Magnesium Reviewed date:10/22/2024 12:18:27 PM Interpretation:Normal Performing Lab: Notes/Report: Test performed by [facility] [address] [place] [address] , [address], [place] [address] Jerson Virk MD, Environmental Science Program Director CLIA: [id number] Magnesium 2.0 1.6-2.4 mg/dL P-TSH Reviewed date:10/22/2024 12:18:27 PM Interpretation:Normal Performing Lab: Notes/Report: Test performed by [facility] [address] [place] [address] , [address], [place] [address] Jerson Virk MD, Environmental Science Program Director CLIA: [id number] TSH 2.49 0.43-5.25 mU/L Reason For Referral Reason Bilateral SI joint p ain Diagnosis 1 Low back pain (M54.5 ) [facility] Referring Provider First Name Benitez Townsend Referring Provider Last Name Nigel Referring Provider Speciality Family Pra ctice Referred Provider Specialty Physical The rapist General Notes Josie White 2024 10:50:17 AM > faxed to [facility] PT Referral Priority Routine REASON FOR VISIT 3 month ckup, Needs bone density screening Medications Medication SIG (Take, Route, Frequency, Duration) Notes Start Date End Date Status Irbesartan 300 MG 1 tab(s) orally once a day; Duration: 90 days Active Levothyroxine Sodium 25 MCG Take 1 table t by mouth once daily; Duration: 90 Active Pravastatin Sodium 20 MG 1 tab(s) Orally once a day (at bedtime); Duration: 90 days Active Meloxicam 15 MG 1 tablet Orally Once a day; Duration: 90 days Active Omeprazole 40 MG take 1 capsule orall y once a day; Duration: 90 days Active Triamterene-HCTZ 37.5-25 MG 1 orally onc e a day; Duration: 90 days Active Magnesium Oxide 250 MG 1 tab(s) Orally o nce a day; Duration: 90 days Active Potassium Chloride ER 20 MEQ Take 1 tabl et by mouth once daily; Duration: 90 Active Melatonin 10 MG 1 cap(s) orally once a day (at bedtime) Active Aspirin 81 MG 1 tab(s) orally once daily; Duration: 30 day(s) Active Calcium + Vitamin D3 600-5 MG-MCG 1 tab(s) orally once a day; Duration: 30 day(s) Active Multiple Vitamin - 1 cap(s) orally once daily; Duration: 30 day(s) Active Vitamin C 500 MG 1 cap(s) orally once daily; Duration: 0 Active CoQ10 100 MG 1 cap(s) orally once a day Active Glucosamine Chond MSM Formula - 1 tab(s) orally 3 times a day Active Metoprolol Succinate ER 50 MG 1 tablet Orally Once a day; Duration: 90 days Active Problems Problem Type SNOMED Code ICD Code Onset Dates Problem Status W/U Status Risk Notes Problem Sacroiliac joint pain (025929622) Sacroiliac joint pain (M53.3) Active confirmed Problem Hyperlipidemia (E78.5) Active confirmed Vital Signs Weight 149.8 lbs 10/18/2024 Blood pressure systolic 102 mm Hg 10/19/19 25 Blood pressure diastolic 70 mm Hg 025 Heart Rate 90 /min 10/18/2024 Height 62 in 10/18/2024 BMI 27.4 kg/m2 10/18/2024 Encounters Encounter Location Date Provider [facility] [phone] 10/18/2024 Benitez Manning Essential hypertensi on I10 ; Sacroiliac joint pain M53.3 ; Pure hypercholesterolemia E78.0 ; Acquired hypothyroidism E03.9 ; Spinal stenosis of lumbar region M48.06 ; Osteopenia M85.80 ; Low back pain associated with a spinal disorder other than radiculopathy or spinal stenosis M54.50 ; Hyperlipidemia E78.5 and BMI 27.0-27.9,adult Z68.27 Assessments Encounter Date Diagnosis (ICD Code) Assessment Notes Treatment Notes Treatment Clinical Notes Section Notes 10/18/2024 Essential hypertensi on (ICD-10 - I10) 10/18/2024 Sacroiliac joint darvin n (ICD-10 - M53.3) 10/18/2024 Pure hypercholesterolemia (ICD-10 - E78.0) 10/18/2024 Acquired hypothyroid ism (ICD-10 - E03.9) 10/18/2024 Spinal stenosis of lumbar region (ICD-10 - M48.06) 10/18/2024 Osteopenia (ICD-10 - M85.80) 10/18/2024 Low back pain associ ated with a spinal disorder other than radiculopathy or spinal stenosis (ICD-10 - M54.50) 10/18/2024 Hyperlipidemia (ICD- 10 - E78.5) 10/18/2024 BMI 27.0-27.9,adult (ICD-10 - Z68.27) Plan Of Treatment Referrals Referral Date Details 10/18/2024 10/18/2024, Nathaniel sheets SI joint pain Next Appt Details Follow Up: 6 Weeks, Reason: Provider Name:Benitez Walters er, 04/01/2025 09:45:00 AM, [address] [facility] 36 [facility], [address] , [place], [place], [id number], Progress Notes * JUANA BARTLETTDOB:1945 ( 79 yo F)Acc No.[id number]:10/18/2024 Progress Notes Patient: JUANA MARTINEZ Provider: Benitez Manning M.D. :1945 A ge:79 Y S ex:Female Date:10/18/2024 Address:[address] [place] [address] [place], [id number] Subjective: * Chief Complaints: * 1 . 3 month ckup. 2. Needs bone density screening. * HPI: C ardiology: The pt is here today for a check up on Hypertnsion and Hyperlipidemia. Pt states she is having pain in both hips.at the SI joints. Does not go down the legs. Pt states the pain is worse in the right hip. Pt also c/o increased leg cramps over the past month. Pt is fasting. Denies : Chest Pain. D enies : Short of Breath. D enies : Dizziness. D enies : Palpitations. D enies : Leg Edema. * ROS: D ERMATOLOGY: no R arcelia. [...] 03/2008, Knee Replacement (R), Dr. Rome Garcia, [facility] 08/18/2015, Epidural steroid, Dr. Papito Costa 03/07/2016, [...] . New since last visit: none. 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 Past smoking status: no. Occup. exposure: none. [...] 1 tab(s) orally once daily , Taking Magnesium Oxide 250 MG Tablet 1 tab(s) Orally once a day , Taking Potassium Chloride ER 20 MEQ Tablet Extended Release Take 1 tablet by mouth once daily , Taking Triamterene-HCTZ 37.5-25 MG Tablet 1 orally once a day , Taking Pravastatin Sodium 20 MG Tablet 1 tab(s) Orally once a day (at bedtime) , Taking Irbesartan 300 MG Tablet 1 tab(s) orally once a day , Taking Levothyroxine Sodium 25 MCG Tablet Take 1 tablet by mouth once daily , Taking Omeprazole 40 MG Capsule Delayed Release take 1 capsule orally once a day , Taking Meloxicam 15 MG Tablet 1 tablet Orally Once a day , Taking Metoprolol Succinate ER 50 MG Tablet Extended Release 24 Hour 1 tablet Orally Once a day , Medication List reviewed and reconciled with the patient * Allergies: A CE Inhibitors: cough, Gabapentin: confusion/dysphoria. Objective: * Vitals: W t: 149.8, Temp: 98.1, BP: 102/70, HR: 90, Nurse: TY, Ht: 62, BMI:27.4. * Examination: G eneral Examination: General Appearance: [...] n ormal . B ack: mild dorsal kyphosis,tender SI joints bilaterally. E xtremities: m inimal leg edema. Assessment: * Assessment: 1. S acroiliac joint pain - M53.3 (Primary) 2 . E ssential hypertension - I10 3 . P ure hypercholesterolemia - E78.0 4 . A cquired hypothyroidism - E03.9 5 . S abisai stenosis of lumbar region - M48.06 6. O steopenia - M85.80 7 . L ow back pain associated with a spinal disorder other than radiculopathy or spinal stenosis - M54.50 8 . H yperlipidemia - E78.5 9 . B NC 27.0-27.9,adult - Z68.27 Plan: * Treatment: Value Reference Range A /G Ratio 1.6 1.1-2.5 - * A lbumin 4.5 3.5-5.3 - g/dL * A lkaline Phosphatase 88 35-121 - IU/L * A LT (SGPT) 17 <5-47 - IU/L * A ST (SGOT) 28 <5-40 - IU/L * B ilirubin, Total 0.4 <0.2-1.2 - mg/dL * B UN 27 H 8-23 - mg/dL * C alcium 10.1 8.6-10.4 - mg/dL * C hloride 101 97-108 - mmol/L * C O2 23 22-32 - mmol/L * C reatinine 0.84 0.50-1.00 - mg/dL * G lucose 111 H 65-99 - mg/dL * P otassium 4.6 3.5-5.3 - mmol/L * S odium 135 135-145 - mmol/L * P rotein 7.4 6.0-8.3 - g/dL * e GFR by Creatinine 71 >59 - mL/min/1.73m2 * Summer Montelongo 10/22/2024 12:1 8:21 PM EDT > See phone encounter 2.?Acquired hypothyroidism?LAB: P-TSH (Collection Date & Time - 10/18/2024 10:03 AM)?Normal* Value Reference Range T SH 2.49 0.43-5.25 - mU/L * Summer Montelongo 10/22/2024 12:1 8:21 PM EDT > See phone encounter 3.?Osteopenia?LAB: P-Magnesium (Collection Date & Time - 10/18/2024 10:03 AM)?Normal* Value Reference Range M agnesium 2.0 1.6-2.4 - mg/dL * Summer Montelongo 10/22/2024 12:1 8:21 PM EDT > See phone encounter 4.?Low back pain associated with a spinal disorder other than radiculopathy or spinal stenosis?LAB: P-Sed Rate (ESR) (Collection Date & Time - 10/18/2024 10:03 AM)?38* Value Reference Range E rythrocyte Sedimentation Rate (ESR), Automated 38 H <31 - mm/hr * Summer Montelongo 10/22/2024 12:1 8:21 PM EDT > See phone encounter 5.?Hyperlipidemia?LAB: P-Lipid Panel (Collection Date & Time - 10/18/2024 10:03 AM)?Normal* Value Reference Range C holesterol / HDL Ratio 2.33 0.00-4.44 - Ratio * C holesterol 140 <200 - mg/dL * H DL Cholesterol 60 >39 - mg/dL * L DL Cholesterol (Calculation) 56 <130 - mg/d L * L DL/HDL Ratio 0.9 <3.3 - Ratio * N on-HDL Cholesterol 80 <130 - mg/dL * T riglycerides 121 <150 - mg/dL * Summer Montelongo 10/22/2024 12:1 8:21 PM EDT > See phone encounter 6.?Others? Referral To:Physical Therapist ?Reason:Bilateral SI joint pain * Procedure Codes: G 2211 Complex e/m visit add on, 1036F TOBACCO NON-USER, G8420 BMI<30 AND >=22 CALC & DOCU, G8950 PREHTN/HTN BP DOC INDCD F/U DOC, G8752 MOST RECENT SYSTOLIC BP < 140MM HG, G8754 MOST RECENT DIASTOLIC BP < 90MM HG * Follow Up: 6 Weeks * Images: Billing Information: * Visit Code: 40090 Office Visit, Est Pt., Level 4. * Procedure Codes: G2211 Complex e/m visit add on. 1036F TOBACCO NON-USER. G8420 BMI<30 AND >=22 CALC & DOCU. G8950 PREHTN/HTN BP DOC INDCD F/U DOC. G8752 MOST RECENT SYSTOLIC BP < 140MM HG. G8754 MOST RECENT DIASTOLIC BP < 90MM HG. * Electronic signature of Benitez Manning MD on 12/23/2024 at 09:10 AM EDT Sign off status: Pending * Provider: Benitez Manning M.D. Date: 0 10/18/2024 Generated for Jose Luis ernst/Chelsea/eTransmitting on: 0 12/23/2024 09:10 AM EDT History and Physical Notes * HPI (History of Present Illness) Category Sub-Category Detail Notes Category Not es Cardiology Short of Breath Chest Pain Palpitations Dizziness Leg Edema Examination Category Sub-Category Detail Notes Category Not [...] Peripheral pulses: normal Back: mild dorsal kyphosis ,tender SI joints bilaterally Chest: normal shape and exp ansion Consultation Request Notes Referral Date Referring Provider Referred Provider Not es 10/18/2024 Benitez Manning , Bilateral SI joint pain
--- OUTSIDE RECORDS SUMMARY | 2024-11-08 06:01 | XMS_ITS ---
[facility] Address [address] [place] [id number] Care Team Providers Care Assistant Plant Controller Name Role Phone Benitez Manning Primary Care Provider [phone] REASON FOR VISIT due bone density Encounters Encounter Location Date Provider Diagnosis [place] [address]10 [facility] [address] [facility] [address] [place] [id number] 11/08/2024 Benitez Manning Screening for osteoporosis Z13.820 and Osteopenia M85.80 Assessments Encounter Date Diagnosis (ICD Code) Assessment Notes Treatment Notes Treatment Clinical Notes Section Notes 11/08/2024 Screening for osteoporosis (ICD-10 - Z13.820) 11/08/2024 Osteopenia (ICD-10 - M85.80) Plan Of Treatment Pending Test Test Name Order Date Bone density 11/08/2024 Next Appt Details Provider Name:Benitez Walters er, 04/01/2025 09:45:00 AM, 1210 [facility] 36 [facility], [address], [place], [phone], Progress Notes * JUANA HERMANDOB:1945 ( 79 yo F)Acc No.[id number]:11/08/2024 Patient: JUANA MARTINEZ :1945 A ge:79 Y S ex:Female Address:[address] [place] [address] [place] [address] Subjective: * Chief Complaints: * D ue bone density * Medical History: * Surgical History: * Hospitalization/Major Diagno stic Procedure: * Medications: Objective: * Vitals: * Physical Examination: Assessment: * Assessment: 1. S creening for osteoporosis - Z13.820 (Primary) 2 . O steopenia - M85.80? Plan: * Treatment: 2.?Osteopenia?Imaging: Bone density* Krista Simmons 11/22/2024 02:2 9:35 PM EDT > sent to [facility] for referral to [facility] * Procedure Codes: * true * Date: Generated for Jose Luis ernst/Chelsea/Jujusmitting on: 0 12/23/2024 09:11 AM EDT
--- OUTSIDE RECORDS SUMMARY | 2024-11-25 09:45 | XMS_ITS ---
Author Organization [facility] Address [address] [facility] [address] [facility] [address] [place] [phone] Care Team Providers Care Police Liaison Officer Name Role Phone Benitez Manning Primary Care [...] 11/25/2024 Encounters Encounter Location Date Provider Diagnosis [facility] [facility] [address] [facility] [address] [place] [phone] 11/25/2024 Benitez Manning Sacroiliac joint darvin n [...] Details Follow Up: 4 Months, Reason: Provider Name:Benitez Walters er, 04/01/2025 09:45:00 AM, [address] [place] [address] [facility], [address], [place], [phone], Progress Notes * JUANA HERMANDOB:1945 ( 79 yo F)Acc No.[id number]:11/25/2024 Progress Notes Patient: JUANA MARTINEZ Provider: Benitez Manning M.D. :1945 A ge:79 Y S ex:Female Date:11/25/2024 Address:[address] [place] [address], [id number] Subjective: * Chief Complaints: * 1 . [...] does not know what the medication is. [facility] research group. [place]. * ROS: D ERMATOLOGY: no R arcelia. [...] 03/2008, Knee Replacement (R), Dr. Rome Garcia, [facility] 08/18/2015, Epidural steroid, Dr. Papito Costa 03/07/2016, [...] . New since last visit: none. 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 Past smoking status: no. [...] weight management - Z76.89 4 . B WI 27.0-27.9,adult - Z68.27 Plan: * Treatment: * Procedure Codes: G 2211 Complex e/m visit add on, G8420 BMI<30 AND >=22 CALC & DOCU, 1036F TOBACCO NON-USER, G8783 BP SCR PRFRM RCMDD DEFIND SCR INTVL, G8752 MOST RECENT SYSTOLIC BP < 140MM HG, G8754 MOST RECENT DIASTOLIC BP < 90MM HG * Follow Up: 4 Months * Images: Billing Information: * Visit Code: 63258 Office Visit, Est Pt., Level 3. * [...] Manning M.D. Date: 0 11/25/2024 Generated for Jose Luis ernst/Chelsea/Daynaitting on: 0 12/23/2024 09:10 AM EDT History [...] does not know what the medication is. [facility] research group. [place]. Pain At left deltoid [...]
--- NOTE | 2024-12-23 09:10 | XR_ITS ---
FINAL REPORT TECHNIQUE: Bone densitometry calculations of the lumbar spine and left hip were obtained. CLINICAL HISTORY: SCREENING FINDINGS: Using L1-4, the bone mineral density of the spine is 1.082 g/cm2, corresponding to T-score of 0.3 and a Z score of 2.9. This is within the range of normal. Using the left hip, the bone mineral density of the femoral neck is 0.744 g/cm2, corresponding to a T-score of -1.6 and a Z-score of 0.4. This is within the range of osteopenia. Using the right hip, the bone mineral density of the femoral neck is 0.73 g/cm2, corresponding to a T-score of -0.6 and a Z-score of 1.6. This is within the range of normal. NOTE: T-score: Standard deviation compared with peak bone mass of young adult mean. *Following the recommendations of the International Society of Bone densitometry, classification of hip BMD is based on the lower of two T-scores; total hip or femoral neck. IMPRESSION: 1. Bone mineral density of the lumbar spine within the range of normal. 2. Bone mineral density of the left femoral neck within the range of osteopenia. 3. Bone mineral density of the right femoral neck within the range of normal. Reviewed, Interpreted and Dictated by Landy Solomon MD Transcribed by Naina Machado Authenticated and [facility]
--- OUTSIDE RECORDS SUMMARY | 2024-12-23 09:10 | XMS_ITS ---
Author Organization Unknown Problems Date Problem Result OnSetDate Icd10 SnomedCode Severity Cu stom 5 00:00:00 Pure hypercholesterolemia E78.00 5 00:00:00 Spinal stenosis of lumbar region, unspecified whether neurogenic claudication present M48.061 5 00:00:00 Sacroiliac joint pain M53.3 [id number] 5 00:00:00 Hyperlipidemia E78.5
--- OUTSIDE RECORDS SUMMARY | 2024-12-23 09:10 | XMS_ITS | Clinical Summary ---
Author Organization [facility] Address [address] [place] [address] Care Team Providers Care Epic Prelude Analyst Name Role Phone Lane Manning MD Primary Care Provider [phone] Allergies Active Allergy Reactions Criticality Noted Date Comments Gabapentin Other - please docum ent in the comment field Low 12/19/2022 TALKING CRAZY Medications triamterene-hyd rochlorothiazid e (Maxzide-25) 37.5-25 MG tablet TAKE 1/2 (ONE-HALF) TABLET BY MOUTH ONCE DAILY 11/11/2022 Active irbesartan (Avapro) 300 MG tablet Take 1 tablet (300 mg) by mouth 1 (one) time each day. 12/13/2022 Active metoprolol succinate XL (Toprol-XL) 50 MG 24 hr tablet Take 1 tablet (50 mg) by mouth 1 (one) time each day. 09/07/2022 Active meloxicam (Mobic) 15 MG tablet Take 1 tablet (15 mg) by mouth. 11/11/2022 Active magnesium oxide (Mag-Ox) 250 MG tablet Take 1 tablet every day by oral route. Active pravastatin (Pravachol) 20 MG tablet Take 1 tablet (20 mg) by mouth every night. 12/09/2022 Active levothyroxine (Synthroid, Levoxyl) 25 MCG tablet 10/28/2022 Active Melatonin 10 MG tablet Take 1 tablet every day by oral route. Active omeprazole (PriLOSEC) [address] capsule Take 1 capsule (40 mg) by mouth 1 (one) time each day. 10/11/2022 Active Social History Tobacco Use Types Packs/Day Years Used Date Smoking Tobacco: Never Smokeless Tobacco: Never Tobacco Cessation:Counseling Given: Not Answered Alcohol Use Standard Drinks/Week Comments Yes 0 (1 standard drink = 0.6 oz pur e alcohol) Comments Unknown Sex and Gender Information Value Date Recorded Sex Assigned at Not on file Legal Sex Female 8:39 PM EDT Gender Identity Not on file Sexual Orientation Not on file Last Filed Vital Signs Vital Sign Reading Time Taken Comments Blood Pressure 138/87 02/03/2023 11:14 AM EDT Pulse 84 02/03/2023 11:14 AM EDT Temperature - - Respiratory Rate - - Oxygen Saturation 97% 02/03/2023 11: 14 AM EDT Inhaled Oxygen Concentration - - Weight 67.9 kg (149 lb 11.1 oz) 05/05/2024 9:25 AM EST Height 157.5 cm (5' 2 ) 02/03/2023 11:1 4 AM EDT Body Mass Index 27.38 02/03/2023 11:14 AM EDT Plan of Treatment Health Maintenance Due Date Last Done Comments [facility]-Bone Density Scan 1945 [facility]-Depression Screening 1945 [facility]-Hepatitis C Screening 1945 [facility]-Medicare Annual Wellness (AWV) 1945 [facility]-/Child/Adol SDOH Screenings 1945 [facility]-Obesity Intervention 1952 [facility]- SDOH Screenings 1964 [facility]-Adult SDOH Screenings 1963 [facility]-RSV Vaccine: 60+ Years or (1 - 1-dose 75+ series) 2021 [facility]-DHVQD-40 Vaccine (2023- season) 2023 11/05/2023, 02/26/2023, 01/09/2022, Additional history exists [facility]-Influenza Vaccine (#1) 12/27/202402/07, 02/06/2021, 02/02/2020, Additional history exists [facility]-DTaP,Tdap,and Td Vaccines (2 - Td or Tdap) 05/05/2027 05/05/2017, 07/02/1996 [facility]-Pneumococcal Vaccine: 50+ Years Completed 02/03/2017, 09/26/2014, 03/01/2008 [facility]-Zoster Vaccines Completed 01/03/2022, 09/17/2021, 04/30/2011 HPV Vaccines Aged Out No longer eligi ble based on patient's age to complete this topic [facility]-HIB Vaccines Aged Out No longer e ligible based on patient's age to complete this topic [facility]-Hepatitis A Vaccines Aged Out No longer eligible based on patient's age to complete this topic [facility]-IPV Vaccines Aged Out No longer e ligible based on patient's age to complete this topic [facility]-Rotavirus Vaccines Aged Out No lo nger eligible based on patient's age to complete this [place] [address] [facility]LY [facility] Care Teams Epic Prelude Analyst Relationship Specialty Start Date End Date Lane Manning MD [address] [place] [id number] PCP - General 02/09/21
--- OUTSIDE RECORDS SUMMARY | 2024-12-23 09:10 | XMS_ITS | Clinical Summary ---
Author Organization [facility] Address [address] [place] [address] Care Team Providers Care Computer Drafter Name Role Phone Lane Manning MD Primary Care Provider [phone] Allergies No known active allergies Medications metoprolol succinate XL (TOPROL-XL) 25 MG 24 hr tablet Take 25 mg by mouth Every Night. 1 02/08/2019 Active levothyroxine (SYNTHROID, LEVOTHROID) 25 MCG tablet Take 25 mcg by mouth Daily. 1 12/12/2018 Active pravastatin (PRAVACHOL) 20 MG tablet Take 20 mg by mouth every night at bedtime. 1 12/04/2018 Active indomethacin (INDOCIN) 25 MG capsule Take 25 mg by mouth 2 (Two) Times a Day. 0 12/14/2018 Active magnesium oxide (MAGOX) 400 (241.3 Mg) MG tablet tablet Take 400 mg by mouth Daily. 0 12/12/2018 Active MAGNESIUM ASPARTATE PO Take by mouth. Active Coenzyme Q10 (COQ-10 PO) Take 1 tablet by mouth Daily. Active Calcium-Magnesi um-Vitamin D (CALCIUM 500 PO) Take 1 tablet by mouth Daily. Active Multiple Vitamin (MULTI-VITAMIN PO) Take 1 tablet by mouth Daily. Active Ascorbic Acid (VITAMIN C PO) Take by mouth. Active triamterene-hyd rochlorothiazid e (DYAZIDE) 37.5-25 MG per capsule Take 0.5 capsules by mouth Every Morning. Active vitamin C (ASCORBIC ACID) 500 MG tablet Take 500 mg by mouth Daily. Active estrogen, conjugated,-med roxyprogesteron e (PREMPRO) 0.3-1.5 MG per tablet Take 1 tablet by mouth Daily. Active aspirin 81 MG chewable tablet Chew 1 tablet Daily. Resume in 1 month 10/21/2019 Active acetaminophen (TYLENOL) 325 MG tablet Take 2 tablets by mouth Every 4 (Four) Hours As Needed for Mild Pain . 42 tablet 10/21/2019 2:35 PM EDT 10/21/2019 Active aspirin 325 MG EC tablet Take 1 tablet by mouth Daily. For 1 month 30 tablet 10/21/2019 2:35 PM EDT 10/22/2019 Active irbesartan (AVAPRO) 300 MG tablet Take 300 mg by mouth Daily. 11/09/2019 Active meloxicam (MOBIC) 15 MG tablet 10/02/2020 Active esomeprazole (nexIUM) 40 MG capsule 10/02/2020 Active Active Problems Problem Noted Date Diagnosed Date HTN (hypertension) 10/21/2019 S/P total knee arthroplasty, left 10/21/2019 Hyperlipidemia 10/21/2019 Acute postoperative pain 10/21/2019 Primary osteoarthritis of left knee 05/25/2019 Overview (05/25/2019): Added automatically from request for surgery [id number] Family History Medical History Relation Name Comments Heart attack Father Hypertension Father Hypertension Mother Relation Name Status Comments Father Mother Social History Tobacco Use Types Packs/Day Years Used Date Smoking Tobacco: Never Smokeless Tobacco: Never Alcohol Use Standard Drinks/Week Comments Yes 0 (1 standard drink = 0.6 oz pur e alcohol) 1/wk Abuse Screen Answer Date Recorded Unsafe at Home or Work/School Not on file Feels Threatened by Someone? Not on file 02/2023 Does Anyone Keep You from Co ntacting Others or Doint Things Outside the Home? Not on file 02/05/2023 Physical Sign of Abuse Present Not on file 1 Housing Stability Answer Date Recorded Current Living Arrangements Not on file 01/26 Potentially Unsafe Housing Conditions Not on yen e 02/05/2023 Family and Community Support Answer Henrik e Recorded Help with Day-to-Day Activities Not on file 02/05/2023 Lonely or Isolated Not on file 02/05/2023 Employment Answer Date Recorded Do you want help finding or keeping work or a qasim b? Not on file 02/05/2023 Disabilities Answer Date Recorded Concentrating, Remembering, or Making Decisions Difficulty Not on file 02/05/2023 Doing Errands Independently Difficulty Not on fi le 02/05/2023 Education Answer Date Recorded Help with school or training? Not on file Preferred Language Not on file 02/05/2023 Comments No Sex and Gender Information Value Date Recorded Sex Assigned at Not on file Legal Sex Female 11:50 AM EDT Gender Identity Not on file Sexual Orientation Not on file Last Filed Vital Signs Vital Sign Reading Time Taken Comments Blood Pressure 142/89 10/04/2020 1:21 PM EDT Pulse 90 10/04/2020 1:21 PM EDT Temperature 36.4 C (97.5 F) 10/21/2019 10:34 AM EDT Respiratory Rate 18 10/21/2019 10:34 AM EDT Oxygen Saturation 90% 10/21/2019 10:34 AM EDT Inhaled Oxygen Concentration - - Weight 71.2 kg (157 lb) 10/04/2020 1:21 PM EDT Height 157.5 cm (5' 2.01 ) 10/04/2020 1:21 PM ED T Body Mass Index 28.71 10/04/2020 1:21 PM EDT Plan of Treatment Health Maintenance Due Date Last Done Comments DXA SCAN 1945 LIPID PANEL 1945 ZOSTER VACCINE (1 of 2) 1996 Pneumococcal Vaccine 50+ (2 of 2 - PCV) 02/03/2018 02/03/2017 ANNUAL PHYSICAL 02/22/2019 HEPATITIS C SCREENING 02/22/2019 RSV Vaccine - Adults (1 - 1- dose 75+ series) 2021 COVID-19 Vaccine (3 - season) 12/28/202311/2020, 05/04/2020 INFLUENZA VACCINE 01/26/2025 02/02/2020, , 02/03/2017 TDAP/TD VACCINES (3 - Td or Tdap) 05/05/2027 018, 07/02/1996 Medical Devices Implanted Type Area Thoracic Medicine Specialist Device Identifier Shelf Expiration Date Model / Serial / Lot Cmt Bone Simplex/P Full Dose 10/Pk - [id number] Implanted:Qty : 2 on 10/21/2019 by Rome Garcia MD at [facility] Implant Left: Knee CHIDI ELVIA 06/25/2021 [id number] / / [id number] Sut Contrl Tiss Stratafix Symm Pds Plus Avelina Ct-1 45cm - [id number] Implanted:Qty : 1 on 10/21/2019 by Rome Garcia MD at [facility] Implant Left: Knee ETHICON DIV OF KATHERINE [id number] / / Sut Contrl Tiss Stratafix Spiral Mncryl Ud 3/0 Pls 60cm - [id number] Implanted:Qty : 1 on 10/21/2019 by Rome Garcia MD at [facility] Implant Left: Knee ETHICON ENDO SURGERY DIV OF Benitez AND Benitez [id number] / / Pat Resrf Gen2 7.5x29mm - [id number] Implanted:Qty : 1 on 10/21/2019 by Rome Garcia MD at [facility] Implant Left: Knee KEY AND NEPHEW 07/11/2029 [id number] / / [id number] Comp Fem Legion Oxinium Ps Nrw Sz4n Lt - [id number] Implanted:Qty : 1 on 10/21/2019 by Rome Garcia MD at [facility] Implant Left: Knee KEY AND NEPHEW 06/27/2029 [id number] / / [id number] Base Tib/Kn Gen2 Nonpor Ti Sz2 Lt - [id number] Implanted:Qty : 1 on 10/21/2019 by Rome Garcia MD at [facility] Implant Left: Knee KEY AND NEPHEW 07/06/2029 [id number] / / [id number] Insrt Art Legion Ps Hf Xlpe Sz1to2 12mm - [id number] Implanted:Qty : 1 on 10/21/2019 by Rome Garcia MD at [facility] Implant Left: Knee KEY AND NEPHEW 06/28/2027 [id number] / / [id number] Totl Kn Bobo Key Nephew - [id number] Implanted:Qty : 1 on 10/21/2019 by Rome Garcia MD at [facility] Implant Left: Knee KEY AND NEPHEW CAPKNEETOTAL SN2 / / Knee Hardware Insurance ISABELLE JEREZ [id number] ANTH BLUE CROSS MEDICARE A & B Advance Directives Documents on File Type Date Recorded 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 [address] [place] [id number] PCP - General 08/15/15
--- OUTSIDE RECORDS SUMMARY | 2024-12-23 09:11 | XMS_ITS | Patient Health Record ---
Author Organization [facility] Address [address] [facility] [address] [place] [id number] Care Team Providers Care Tax Auditor Name Role Phone Benitez Manning Primary Care Provider [phone] Allergies Allergen (clinical drug ingredient) Drug/Non Drug Allergy documented on EMR Reaction Allergy Type Onset Date Status angiotensin-converting enzyme inhibitor (FN) ARLEN Inhibitors cough Drug Allergy Acti ve Results Component Value Reference Range Notes P-Comprehensive Metabolic Pa alisha (CMP) Reviewed date:10/22/2024 12:18:27 PM Interpretation:gluc 111, bun 27 Performing Lab: Notes/Report: Test performed by [facility] [address] [place] [address] , [address], [place] [address] Jerson Virk MD, Family Consumer Science Fcs Teacher CLIA: [id number] Sodium 135 135-145 mmol/L Potassium 4.6 3.5-5.3 [...] Interpretation:38 Performing Lab: Notes/Report: Test performed by [facility] [address] , [place] [address] Jerson Virk MD, Family Consumer Science Fcs Teacher CLIA: [id number] Erythrocyte Sedimentation Ra te (ESR), Automated 38 <31 mm/hr P-Lipid Panel Reviewed date:10/22/2024 12:18:27 PM Interpretation:Normal Performing Lab: Notes/Report: Test performed by [facility] [address], [place] [address] Jesron Virk MD, Family Consumer Science Fcs Teacher CLIA: [id number] Cholesterol 140 <200 mg/dL Triglycerides 121 <150 [...] Interpretation:Normal Performing Lab: Notes/Report: Test performed by [facility] , [address], [place] [address] Jerson Virk MD, Family Consumer Science Fcs Teacher CLIA: [id number] Magnesium 2.0 1.6-2.4 mg/dL P-TSH Reviewed date:10/22/2024 12:18:27 PM Interpretation:Normal Performing Lab: Notes/Report: [facility] , [facility], [place] [address] Jerson Virk MD, Family Consumer Science Fcs Teacher CLIA: [id number] TSH 2.49 0.43-5.25 mU/L P-TSH Reviewed date:06/30/2024 04:50:16 PM Interpretation:Normal Performing Lab: Notes/Report: Test performed by [facility] , [address], [place] [address] Jerson Virk MD, Family Consumer Science Fcs Teacher CLIA: [id number] TSH 2.20 0.43-5.25 mU/L P-Magnesium Reviewed date:06/30/2024 04:50:16 PM Interpretation:Normal Performing Lab: Notes/Report: [facility] , [address], [place] [address] Jerson Virk MD, Family Consumer Science Fcs Teacher CLIA: [id number] Magnesium 2.0 1.6-2.4 mg/dL P-Comprehensive Metabolic Pa alisha (CMP) Reviewed date:06/30/2024 04:50:16 PM Interpretation:Normal Performing Lab: Notes/Report: Test performed by [facility] [address] , [address], [place] [address] Jerson Virk MD, Family Consumer Science Fcs Teacher CLIA: [id number] Sodium 135 135-145 mmol/L Potassium 4.7 3.5-5.3 [...] 0.3 <0.2-1.2 mg/dL A/G Ratio 1.5 1.1-2.5 P-Comprehensive Metabolic Pa alisha (CMP) Reviewed date:02/18/2024 04:29:43 PM Interpretation:satisfactory Performing Lab: Notes/Report: Test performed by [facility] [address] [place] [address] , [facility], [place] [address] Jerson Virk MD, Family Consumer Science Fcs Teacher CLIA: [id number] Sodium 132 135-145 mmol/L Potassium 4.6 3.5-5.3 [...] 0.3 <0.2-1.2 mg/dL A/G Ratio 1.4 1.1-2.5 Medications Medication SIG (Take, Route, Frequency, Duration) Notes Start Date End Date Status Metoprolol Succinate ER 50 MG 1 tablet Orally Once a day; Duration: 90 days Active Melatonin 10 MG 1 cap(s) orally once a day (at bedtime) Active Vitamin C 500 MG 1 cap(s) orally once daily; Duration: 0 Active Levothyroxine Sodium 25 MCG Take 1 table t by mouth once daily; Duration: 90 Active Calcium + Vitamin D3 600-5 MG-MCG 1 tab(s) orally once a day; Duration: 30 day(s) Active Omeprazole 40 MG take 1 capsule orall y once a day; Duration: 90 days Active Pravastatin Sodium 20 MG 1 tab(s) Orally once a day (at bedtime); Duration: 90 days Active Multiple Vitamin - 1 cap(s) orally once daily; Duration: 30 day(s) Active Irbesartan 300 MG 1 tab(s) orally once a day; Duration: 90 days Active Potassium Chloride ER 20 MEQ Take 1 tabl et by mouth once daily; Duration: 90 Active Triamterene-HCTZ 37.5-25 MG 1 orally onc e a day; Duration: 90 days Active Aspirin 81 MG 1 tab(s) orally once daily; Duration: 30 day(s) Active Magnesium Oxide 250 MG 1 tab(s) Orally o nce a day; Duration: 90 days Active CoQ10 100 MG 1 cap(s) orally once a day Active Meloxicam 15 MG 1 tablet Orally Once a day; Duration: 90 days Active Glucosamine Chond MSM Formula - 1 tab(s) orally 3 times a day Active Immunizations Vaccine Route Administration Date Status Comme nts COVID 19 Moderna IM Intramuscular 05/04/2020 Administered COVID 19 Moderna IM Intramuscular 06/05/2020 Administered COVID 19 Moderna Unknown 01/17/2021 Administered COVID 19 Moderna Unknown 01/17/2021 Administered DT, 7 YEARS OR OLDER Unknown 07/02/1996 Administered Fluzone High Dose (65yr and older) IM Intramuscular 04/09/2012 Administered Fluzone High Dose (65yr and older) IM Intramuscular 03/22/2014 Administered Fluzone High Dose (65yr and older) IM Intramuscular 02/23/2015 Administered Fluzone High Dose (65yr and older) IM Intramuscular 04/08/2016 Administered Fluzone High Dose (65yr and older) IM Intramuscular 02/03/2017 Administered Fluzone High Dose (65yr and older) IM Intramuscular 02/25/2019 Administered Fluzone High Dose (65yr and older) IM Intramuscular 02/02/2020 Administered Fluzone High Dose (65yr and older) IM Intramuscular 02/06/2021 Administered Fluzone High Dose (65yr and older) IM Intramuscular 02/07/2022 Administered Fluzone High Dose (65yr and older) IM Intramuscular 02/17/2023 Administered Fluzone High Dose (65yr and older) IM Intramuscular 02/12/2024 Administered PNEUMOVAX 23 VACCINE IM Intramuscular 03/01/2008 Administe red PNEUMOVAX 23 VACCINE IM Intramuscular 02/03/2017 Administe red Prevnar (PCV13) IM Intramuscular 09/26/2014 Administered Shingrix Unknown 09/17/2021 Administered Shingrix Unknown 01/03/2022 Administered Tetanus Tdap-Adacel (over 7yrs) IM Intramuscular 05/05/2017 Administered xAdministration of injection SC Subcutaneous 04/30/2011 Administered xFlu shot-36 months and older IM Intramuscular 03/24/2007 Administered xFlu shot-36 months and older IM Intramuscular 03/01/2008 Administered xFlu shot-36 months and older IM Intramuscular 04/07/2009 Administered xFlu shot-36 months and older IM Intramuscular 04/03/2010 Administered pBjejizw-vakmbqljz-opgdeuc e pts. IM Intramuscular 04/26/2013 Administered Problems Problem Type SNOMED Code ICD Code Onset Dates Problem Status W/U Status Risk Notes Problem Hyponatremia (73627161) Hyponatremia (E87.1) Active confirmed Problem Hyperlipidemia (88785146) Hyperlipidemia (E78.5) Active confirmed Problem Essential hypertension (58314196) Essential hypertension (I10) Active confirmed Problem Osteopenia (721708180) Osteopenia (M85.80) Active confirmed Problem Sore throat (684353695) Sore throat (J02.9) Active confirmed Problem Hiatal hernia (79159457) Hiatal hernia (K44.9) Active confirmed Problem Hyperlipidemia (56273803) Other hyperlipidemia (E78.4) Active confirmed Problem Chronic pain (32738405) Other chronic pain (G89.29) Active confirmed Problem Metabolic encephalopathy (37739820) Metabolic encephalopathy (G93.41) Active confirmed Problem Sciatica (58848593) Lumbago with sciatica, left side (M54.42) Active confirmed Problem History of gastrointestinal disease (847955285) Personal history of other diseases of the digestive system (Z87.19) Active confirmed Problem Spinal stenosis of lumbar region (44860667) Spinal stenosis of lumbar region (M48.06) Active confirmed Problem Acquired hypothyroidism (493165018) Acquired hypothyroidism (E03.9) Active confirmed Problem Gastroesophageal reflux disease (disorder) (333993008) Chronic GERD (K21.9) Active confirmed Problem Skin sensation disturbance (11102659) Paresthesias in left hand (R20.2) Active confirmed Problem Dysphagia (42464353) Pharyngoeso phageal dysphagia (R13.14) Active confirmed Problem Cardiac dysrhythmia (839410763) Cardiac dysrhythmia, unspecified (I49.9) Active confirmed Problem Atrophic gastritis (38912185) Chronic gastritis without bleeding, unspecified gastritis type (K29.50) Active confirmed Problem Pure hypercholesterolemia (594227009) Pure hypercholesterolemia (E78.00) Active confirmed Problem Pure hypercholesterolemia (497897723) Pure hypercholesterolemia, unspecified (E78.00) Active confirmed Problem Postprocedural state s (666134864) Other specified postprocedural states (Z98.890) Active confirmed Problem Carpal tunnel syndrome (83397719) Carpal tunnel syndrome on both sides (G56.03) Active confirmed Problem Sacroiliac joint darvin n (345562313) Sacroiliac joint pain (M53.3) Active confirmed Problem Spinal stenosis of lumbar region (11027292) Spinal stenosis of lumbar region, unspecified whether neurogenic claudication present (M48.061) Active confirmed Problem Gastroesophageal reflux disease with esophagitis (disorder) (813904700) Gastroesophageal reflux disease with esophagitis without hemorrhage (K21.00) Active confirmed Vital Signs Heart Rate 82 /min 11/25/2024 Blood pressure diastolic 76 mm Hg 11/25/2024 Height 62 in 11/25/2024 Blood pressure systolic 120 mm Hg 11/25/2024 Weight 150.2 lbs 11/25/2024 BMI 27.47 kg/m2 11/25/2024 Encounters Encounter Location Date Provider Diagnosis [facility] [address] [facility] [address] [facility] [address] [place], [place] [id number] 02/12/2024 Benitez Manning Syncope, unspecified syncope type R55 and Encounter for immunization Z23 [facility] [address] [facility] [address] [facility] [address] [place], [place] [id number] 02/23/2024 Benitez Manning Syncope, unspecified syncope type R55 and Essential hypertension I10 [facility] [address] [facility] [address] [place], [place] [id number] 06/28/2024 Benitez Manning Essential hypertensi on I10 ; Pure hypercholesterolemia E78.0 ; Acquired hypothyroidism E03.9 ; Spinal stenosis of lumbar region M48.06 ; Leg cramps R25.2 and Cardiac dysrhythmia, unspecified I49.9 [facility] [address] [facility] [address] [place], [place] [id number] 07/19/2024 Benitez Manning Essential hypertensi on I10 [facility] [address] [facility] [address] [place], [place] [id number] 10/18/2024 Benitez Manning Essential hypertensi on I10 ; Sacroiliac joint pain M53.3 ; Pure hypercholesterolemia E78.0 ; Acquired hypothyroidism E03.9 ; Spinal stenosis of lumbar region M48.06 ; Osteopenia M85.80 ; Low back pain associated with a spinal disorder other than radiculopathy or spinal stenosis M54.50 ; Hyperlipidemia E78.5 and BMI 27.0-27.9,adult Z68.27 [facility] [address] [place], [place] [id number] 11/25/2024 Benitez Manning Sacroiliac joint darvin n M53.3 ; Hyperlipidemia E78.5 ; Encounter for weight management Z76.89 and BMI 27.0-27.9,adult Z68.27 [facility] [address] [facility] [address] [place], [place] [id number] 02/16/2024 Benitez Manning [facility] [address] [facility] [address] [place], [place] [id number] 07/08/2024 Benitez Manning [facility] [address] [facility] [address] [place], [place] [id number] 10/11/2024 Benitez Manning [facility] [address] [facility] [address] [place], [place] [id number] 10/22/2024 Benitez Manning [facility] [address] [facility] [address] [place], [place] [id number] 11/08/2024 Benitez Manning Screening for osteop orosis Z13.820 and Osteopenia M85.80 Assessments Encounter Date Diagnosis (ICD Code) Assessment Notes Treatment Notes Treatment Clinical Notes Section Notes 02/12/2024 Encounter for immunization (ICD-10 - Z23) 02/12/2024 Syncope, unspecified syncope type (ICD-10 - R55) I would like information from Cardiology 02/23/2024 Essential hypertensi on (ICD-10 - I10) 02/23/2024 Syncope, unspecified syncope type (ICD-10 - R55) 06/28/2024 Essential hypertensi on (ICD-10 - I10) 06/28/2024 Pure hypercholesterolemia (ICD-10 - E78.0) 07/19/2024 Essential hypertensi on (ICD-10 - I10) continue present treatment 10/18/2024 Essential hypertensi on (ICD-10 - I10) 11/08/2024 Osteopenia (ICD-10 - M85.80) 11/08/2024 Screening for osteoporosis (ICD-10 - Z13.820) 11/25/2024 Hyperlipidemia (ICD- 10 - E78.5) 10/18/2024 Sacroiliac joint darvin n (ICD-10 - M53.3) 11/25/2024 Sacroiliac joint darvin n (ICD-10 - M53.3) continue current therapy 11/25/2024 Encounter for weight management (ICD-10 - Z76.89) 10/18/2024 Pure hypercholesterolemia (ICD-10 - E78.0) 06/28/2024 Acquired hypothyroid ism (ICD-10 - E03.9) 06/28/2024 Spinal stenosis of lumbar region (ICD-10 - M48.06) 10/18/2024 Acquired hypothyroid ism (ICD-10 - E03.9) 11/25/2024 BMI 27.0-27.9,adult (ICD-10 - Z68.27) 10/18/2024 Spinal stenosis of lumbar region (ICD-10 - M48.06) 06/28/2024 Leg cramps (ICD-10 - R25.2) 06/28/2024 Cardiac dysrhythmia, unspecified (ICD-10 - I49.9) 10/18/2024 Osteopenia (ICD-10 - M85.80) 10/18/2024 Low back pain associated with a spinal disorder other than radiculopathy or spinal stenosis (ICD-10 - M54.50) 10/18/2024 Hyperlipidemia (ICD- 10 - E78.5) 10/18/2024 BMI 27.0-27.9,adult (ICD-10 - Z68.27) Plan Of Treatment Pending Test Test Name Order Date Bone density 11/08/2024 Next Appt Details Provider Name:Benitez Lakeoctavio er, 04/01/2025 09:45:00 AM, [address], [place], [place], [id number], Insurance Providers Payer Name Payer Address Payer Phone Subscriber Number Group Number Insured Name Patient Relationship to Insured Coverage Start Date Coverage End Date MEDICARE PART B [address] [address] [place] [address] [id number] CASE, JUANA Self - patient is the insured [facility] [address] [place] [address] [id number] CASE, JUANA Self - patient is the insured Medical (General) History Medical History History ICD Code Hypertension Diverticulosis HCM mammogram 2015, per Dr. Caceres COVID 19 vaccine Apr/May 2020, Moderna COVID 19 Vaccine booster 01/18/2021, Mode rna 06/17/2019 Negative Cologard COVID 19 Booster bivalent 01/09/22 Surgical History Surgery Date(Month/Year) tonsillectomy 1957 tubal ligation 1979 colonoscopy, Dr. Santos 03/2008 Knee Replacement (R), Dr. Rome Garcia, [facility] 08/18/2015 Epidural steroid, Dr. Papito Costa 02/26 Holter Monitor - Negative 2017 Colonoscopy, Dr. Tripp 2014 LT Knee Replacement 10/21/2019 Hiatal Hernia Repair 04/2020 Bilateral Cataract 04/2022 LT Carpal Tunnel 02/03/2023 Hospitalization History Reason Date(Month/Year) Pneumonia 08/2014
== END 2024-12-23 23:59 | disposition home or self-care (01) ==
LOC: RAD 09:08
PROVIDERS: PCP Family Medicine; Visit Provider Family Medicine
DX: M85.852 Other specified disorders of bone density and structure, left thigh (principal); M81.0 Age-related osteoporosis without current pathological fracture
CPT/HCPCS: 77080

== ENCOUNTER 2024-12-23 14:00 | Outpatient (RCR) | payer MEDICARE, BC, SELFPAY ==
--- NOTE | 2024-12-14 07:44 | HMH.RHREAS ---
Rehab Reassessment Rehab OP Re-assessment Start: 11/29/24 14:03 Freq: Status: Active Protocol: Document 12/13/24 14:10 AMBER (Rec: 12/14/24 07:44 PHORNE [id number]) E-signed By Henri Banks, PT Oswestry Index Section 1 Pain Intensity The pain comes and goes and is moderate Section 2 Personal Care ( my way of washing or dressing even though it causes Washing,Dresing) some pain Section 3 Lifting I can lift heavy weights, but it gives me extra pain Section 4 Walking I cannot walk more than 1/2 mile without increasing pain Section 5 Sitting I can sit in my favorite chair for as long as I like Section 6 Standing I cannot stand more than 10 minutes without increasing pain Section 7 Sleeping I get no pain in bed Section 8 Social Life My social life is normal but increases the degree of pain Section 9 Traveling I get extra pain while traveling, but it does not compel me to seek al Section 10 Changing Degreee of My pain seems to be getting better, but improvement is Pain slow Score and Risk Level Oswestry Sc 17 Oswestry Risk Level Moderate Disability Rehab Re-assessment Subjective Subjective Pt reports she feels 70-75% better overall, and states prolonged standing is what has been causing her pain recently. Currently no pain with resting in sitting or supine. Pain with standing greater than 15 mins 6/10. Objective Objective Notes MMT B LE: HIP FLEX 4+/5, HIP ABD 4+/5, otherwise 5/5 throughout. AROM Lumbar spine: WNL throughout TTP: 1/4 B SI jt Activity: standing for even short amounts of time (10- 15 mins) increases pain to 6/10. Assessment Progress Assessment Progressing as Expected Assessment Notes Pt has shown overall improvements in B LE strength, SUNITHA score, and tenderness to palpation. She continues to have increased c/o pain with upright activity including standing and walking. Skilled therapy remains indicated in order to reduce these deficits to aid pt improvement in QOL. PT Patient Goals PT Short Term In 2 wks pt will: Patient Goals 1) Decrease pain with standing 15 mins or more to 4/10. 2) Decrease TTP in B SI area to 0/4 3) Reduce SUNITHA score to 15 or less. PT Jail Patient In 4 wks pt will: Goals 1) Decrease pain with standing 15 mins or more to 2/10. 2) Increase B LE MMT to 5/5 throughout 3) Reduce SUNITHA score to 13 or less. Plan Plan Therapy services will continue as indicated utilizing the following possible interventions in order to aid pt return to PLOF and improved QOL: Frequency of Therapy 2 x/wk Duration of Therapy 4 wks Therapeutic Exercise Yes Including Home Exercise Program Manual Therapy Yes Techniques Neuromuscular Re- Yes education Therapeutic Yes Activities to Return to Previous Functional/Work Level ADL/Self Care Yes Education Thermal Modalities Yes Electrical Yes Stimulation Ultrasound/ Yes Phonophoresis Orthotics/Bracing/ Yes Splinting Massage Yes Eval/Re-Eval Yes Time and Billing Re-Eval Time 14 Re-Eval Billing 0 Units Charge for PT No reassessment? PHYSICIAN CERTIFICATION: I certify the specified therapy services for [facility] Case are required, authorized, and reviewed every 30 days.
== END 2024-12-23 23:59 | disposition home or self-care (01) ==
LOC: PT 14:00
PROVIDERS: Visit Provider Family Medicine
DX: M53.3 Sacrococcygeal disorders, not elsewhere classified (principal)
CPT/HCPCS: 97014; 97110; G0283

== ENCOUNTER 2025-01-05 17:00 | Outpatient (RCR) | payer MEDICARE, BC, SELFPAY | END 2025-01-05 23:59 | disposition home or self-care (01) | LOC: PT 17:00 | PROVIDERS: PCP Family Medicine; Visit Provider Family Medicine | DX: M54.50 Low back pain, unspecified (principal) | CPT/HCPCS: 97110 ==

== ENCOUNTER 2025-02-11 15:22 | Outpatient (CLI) | payer MEDICARE, BC, SELFPAY ==
--- OUTSIDE RECORDS SUMMARY | 2023-12-15 10:30 | XMS_ITS ---
[facility] [address] [facility] [address] [place] [id number] Care Team Providers Care Director Of Food And Nutrition Services Name Role Phone Benitez Manning Primary Care Provider [phone] Lis Medina Unavailable [phone] Allergies Allergen (clinical drug ingredient) Drug/Non Drug Allergy documented on EMR Reaction Allergy Type Onset Date Status angiotensin-converting enzyme inhibitor (FN) ARLEN Inhibitors cough Drug Allergy Acti ve Results Component Value Reference Range Notes Urinalysis - Inhouse Reviewed date:12/15/2023 03:41:33 PM Interpretation: Performing Lab: Notes/Report: Color/Clarity yellow/cloudy Leuk 1+ Nitrite neg Urobili 3.2 Protein neg pH 5.5 Blood 2+ Sp. Gr. 1.015 Ketone neg Bili neg Gluc neg P-Culture, Urine Reviewed date:12/22/2023 09:12:54 AM Interpretation:Ecoli cc 50-100,000 Performing Lab: Notes/Report: CLIA: [id number] Jerson Virk MD, Is Manager [facility] , [address], [place] [address] Test performed by [employer], [place] Specimen Source Urine - Void Culture, Urine See Below See Microbiol ogy Report Escherichia coli 50,000-100,000 CFU/m l Escherichia coli Sensitivity Panel See Below ____ Organism E. coli Antibiotic INTERP ____ Amikacin S Ampicillin S Aztreonam S Cefepime S Cefoxitin S Ceftazidime S Ceftriaxone S Cefuroxime S Ciprofloxacin S Ertapenem S Gentamicin S Imipenem S Levofloxacin S Meropenem S Nitrofurantoin S Piperacillin/Tazo S Tetracycline S Tobramycin S Trimeth/Sulfa S ___ S=SUSCEPTIBLE I=INTERMEDIATE R=RESISTANT REASON FOR VISIT possible uti Medications Medication SIG (Take, Route, Frequency, Duration) Notes Start Date End Date Status Meloxicam 15 MG Take 1 tablet by [facility] once daily; Duration: 90 Active Levothyroxine Sodium 25 MCG 1 tab(s) ora lly once a day; Duration: 90 days Active Omeprazole 40 MG 1 cap(s) orally once a day Active Metoprolol Succinate ER 50 MG 1 tab(s) Orally once a day Active Macrobid 100 MG 1 capsule with food Orally every 12 hrs; Duration: 5 day(s) 12/15/2023 Active Irbesartan 300 MG 1 tab(s) orally once a day; Duration: 90 days Active Aspirin 81 MG 1 tab(s) orally once daily; Duration: 30 day(s) Active Melatonin 10 MG 1 cap(s) orally once a day (at bedtime) Active Triamterene-HCTZ 37.5-25 MG 1/2 tab(s) o rally once a day; Duration: 90 days Active Pravastatin Sodium 20 MG 1 tab(s) orally once a day (at bedtime) Active Magnesium Oxide 250 MG 1 tab(s) Orally o nce a day; Duration: 90 days Active Potassium Chloride ER 20 MEQ Take 1 tabl et by mouth once daily; Duration: 90 Active Multiple Vitamin - 1 cap(s) orally once daily; Duration: 30 day(s) Active Glucosamine Chond MSM Formula - 1 tab(s) orally 3 times a day Active CoQ10 100 MG 1 cap(s) orally once a day Active Calcium + Vitamin D3 600-5 MG-MCG 1 tab(s) orally once a day; Duration: 30 day(s) Active Vitamin C 500 MG 1 cap(s) orally once daily; Duration: 0 Active Vital Signs Weight 149.4 lbs 12/15/2023 Blood pressure systolic 140 mm Hg 12/15/19 24 Blood pressure diastolic 86 mm Hg 024 Heart Rate 91 /min 12/15/2023 Height 62 in 12/15/2023 BMI 27.32 kg/m2 12/15/2023 Encounters Encounter Location Date Provider Diagnosis [facility] [address] [facility] [address] [facility] [address] [place] [id number] 12/15/2023 Lis Medina UTI (lower urinary tract infection) N39.0 Assessments Encounter Date Diagnosis (ICD Code) Assessment Notes Treatment Notes Treatment Clinical Notes Section Notes 12/15/2023 UTI (lower urinary tract infection) (ICD-10 - N39.0) continue with good water intake; discussed preventive measures Plan Of Treatment Medication Medication Name Sig Start Date Stop Date Notes Macrobid 100 MG 1 capsule with food Orally every 12 hrs; Duration: 5 day(s) 12/15/2023 Treatment Notes Assessment Notes UTI (lower urinary tract infection) cont inue with good water intake; discussed preventive measures Next Appt Details Follow Up: prn, Reason: Provider Name:Olive Wahl y, 02/11/2025 02:30:00 PM, [address] [facility], [address], [place], [place], [phone], Provider Name:Benitez Walters er, 04/01/2025 09:45:00 AM, [address] [facility] [address] [facility], [address], [place], [place], [phone], Progress Notes * CASE, JUANADOB:1945 ( 79 yo F)Acc No.[id number]:12/15/2023 Progress Notes Patient: JUANA MARTINEZ Provider: Henrique jessie MedinaKRISTINA :1945 A ge:78 Y S ex:Female Date:12/15/2023 Address:[address] [place] [address] [id number] Pcp:Benitez Manning Subjective: * Chief Complaints: * 1 . Possible uti. * HPI: U rology: 78 year old female presents with c/o frequent urination P t presents today with c/o possible UTI. Pt sts that her symptoms started about two weeks ago while on a cruise. Pt sts that she is having frequent urination, burning, urgency and has had some blood tinged urine. Pt sts that she has had worsening symptoms the last three days. c/o burning sensation. c/o urgency. c/o suprapubic pain. c/o hematuria. Denies : fever. drinking water well. * ROS: D ERMATOLOGY: no R arcelia. n o H tari. G ASTROENTEROLOGY: no N ausea. n o V omiting. U ROLOGY: Difficulty urinating yes. B lood in urine yes.? * Medical History: H ypertension, Diverticulosis, HCM, mammogram 2015, per Dr. Caceres, COVID 19 vaccine Apr/May 2020, Moderna, COVID 19 Vaccine booster 01/18/2021, Moderna, 06/17/2019 Negative Cologard, COVID 19 Booster bivalent 01/09/22. * Surgical History: t onsillectomy 1957, tubal ligation 1979, colonoscopy, Dr. Santos 03/2008, Knee Replacement (R), Dr. Rome Garcia, [facility] 08/18/2015, Epidural steroid, Dr. Papito Costa 03/07/2016, Holter Monitor - Negative 2017, Colonoscopy, Dr. Tripp 2014, LT Knee Replacement 10/21/2019, Hiatal Hernia Repair 04/2020, Bilateral Cataract 04/2022, LT Carpal Tunnel 02/03/2023. * Hospitalization/Major Diagno stic Procedure: P neumonia 08/2014. * Family History: F ather: , heart disease; at age 67 years. M other: alive, heart disease.?Paternal Grand Mother: DM. M aternal Grand Mother: DM. 2 sister(s) - healthy. 2 son(s) , 2 daughter(s) - healthy. . * Social History: C URRENT TOBACCO USE S moking Status: Patient does NOT smoke. C affeine: yes, frequency:tea. Exercise: yes. Home smoke detector use: yes. Marital Status: . New since last visit: none. 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 Past smoking status: no. Occup. exposure: none. Recreational drug use: no. Alcohol: no. Travel ouside [place]: no. * Medications: T aking Multiple Vitamin - Capsule 1 cap(s) orally once daily , Taking Vitamin C 500 MG Capsule 1 cap(s) orally once daily , Taking Calcium + Vitamin D3 600-5 MG-MCG Tablet 1 tab(s) orally once a day , Taking CoQ10 100 MG Capsule 1 cap(s) orally once a day , Taking Glucosamine Chond MSM Formula - Tablet 1 tab(s) orally 3 times a day , Taking Melatonin 10 MG Capsule 1 cap(s) orally once a day (at bedtime) , Taking Pravastatin Sodium 20 MG Tablet 1 tab(s) orally once a day (at bedtime) , Taking Triamterene-HCTZ 37.5-25 MG Tablet 1/2 tab(s) orally once a day , Taking Potassium Chloride ER 20 MEQ Tablet Extended Release Take 1 tablet by mouth once daily , Taking Magnesium Oxide 250 MG Tablet 1 tab(s) Orally once a day , Taking Aspirin 81 MG Tablet Delayed Release 1 tab(s) orally once daily , Taking Irbesartan 300 MG Tablet 1 tab(s) orally once a day , Taking Metoprolol Succinate ER 50 MG Tablet Extended Release 24 Hour 1 tab(s) Orally once a day , Taking Omeprazole 40 MG Capsule Delayed Release 1 cap(s) orally once a day , Taking Levothyroxine Sodium 25 MCG Tablet 1 tab(s) orally once a day , Taking Meloxicam 15 MG Tablet Take 1 tablet by mouth once daily , Discontinued Promethazine-DM 6.25-15 MG/5ML Syrup 5 ml as needed Orally every 6 hrs , Discontinued Benzonatate 200 MG Capsule 1 capsule Orally Three times a day as needed , Discontinued Cefdinir 300 MG Capsule 1 cap(s) Orally Two times a day , Medication List reviewed and reconciled with the patient * Allergies: A CE Inhibitors: cough. Objective: * Vitals: W t:149.4, Temp:98.1, BP:140/86, HR:91, Nurse:RENETTA/BHARGAVI, Ht: 62, BMI:27.32. * Examination: G eneral Examination: General Appearance: NAD, appears healthy, alert, pleasant. H eart: RRR. L ungs: CTAB A&P. A bdomen: bowel sounds present, soft and nontender, no guarding or rigidity, no CVA tenderness. N eurologic Exam: alert and oriented. E xtremities: no leg edema. Assessment: * Assessment: 1. U TI (lower urinary tract infection) - N39.0 (Primary) Plan: * Treatment: Value Reference Range C ulture, Urine See Below - * S pecimen Source Urine - Void - * S ensitivity Panel See Below - * E scherichia coli 50,000-100,000 CFU/ml Escherichia coli - * Lis Medina 12/22/2023 9:10:57 AM > pt was started on Macrobid ?LAB: Urinalysis - Inhouse (Collection Date & Time - 12/15/2023)* Value Reference Range C olor/Clarity yellow/cloudy * L euk 1+ * N itrite neg * U robili 3.2 * P rotein neg * p H 5.5 * B lood 2+ * S p. Gr. 1.015 * K etone neg * B ed neg * G bindu neg * Nadege Moncada 12/15/2023 3:41 :24 PM > results reviewed w/ pt in office Notes: continue with good water intake; discussed preventive measures?? * Procedure Codes: 8 1002 Urinalysis, no micro * Follow Up: p rn * Images: Billing Information: * Visit Code: 69834 Office Visit, Est Pt., Level 3. * Procedure Codes: 17903 Urinalysis, no micro. * Electronic signature of Ermelinda Medina APRN on 02/11/2025 at 03:25 PM EDT Sign off status: Pending * Provider: KRISTINA Rubin Date: 0 12/15/2023 Generated for Printi ng/Faxing/eTransmitting on: 1 03:25 PM EDT History and Physical Notes * HPI (History of Present Illness) Category Sub-Category Detail Notes Category Not es Urology frequent urination Pt presents t nandini with c/o possible UTI. Pt sts that her symptoms started about two weeks ago while on a cruise. Pt sts that she is having frequent urination, burning, urgency and has had some blood tinged urine. Pt sts that she has had worsening symptoms the last three days drinking water well burning sensation suprapubic pain hematuria fever urgency Examination Category Sub-Category Detail Notes Category Not es General Examination Heart: RRR Lungs: CTAB A&P Abdomen: bowel sounds present , soft and nontender, no guarding or rigidity, no CVA tenderness Extremities: no leg edema General Appearance: NAD, appears healthy , alert, pleasant Neurologic Exam: alert and oriented
--- OUTSIDE RECORDS SUMMARY | 2024-02-12 12:00 | XMS_ITS ---
Author Organization [facility] Address [address] [facility] [address] [place] [id number] Care Team Providers Care Gasket Supervisor Name Role Phone Benitez Manning Primary Care Provider Allergies Allergen (clinical drug ingredient) Drug/Non Drug Allergy documented on EMR Reaction Allergy Type Onset Date Status angiotensin-converting enzyme inhibitor (FN) ARLEN Inhibitors cough Drug Allergy Acti ve Results Component Value Reference Range Notes P-Comprehensive Metabolic Pa alisha (CMP) Reviewed date:02/18/2024 04:29:43 PM Interpretation:satisfactory Performing Lab: Notes/Report: CLIA: [id number] Jerson Virk MD, Train Director [address] [facility] , [address], [place] [address] Test performed by [employer] Sodium 132 135-145 mmol/L Potassium 4.6 3.5-5.3 mmol/L Chloride 99 97-108 mmol/L CO2 23 22-32 mmol/L Glucose 104 65-99 mg/dL BUN 22 8-23 mg/dL Creatinine 0.76 0.50-1.00 mg/dL Calcium 9.6 8.6-10.4 mg/dL eGFR by Creatinine 80 >59 mL/min/1.73m2 Protein 7.0 6.0-8.3 g/dL Albumin 4.1 3.5-5.3 g/dL Alkaline Phosphatase 84 35-121 IU/L ALT (SGPT) 20 <5-47 IU/L AST (SGOT) 30 <5-40 IU/L Bilirubin, Total 0.3 <0.2-1.2 mg/dL A/G Ratio 1.4 1.1-2.5 REASON FOR VISIT 6 month f/u, Needs labs, mammogram, colon cancer screening, flu vaccine Medications Medication SIG (Take, Route, Frequency, Duration) Notes Start Date End Date Status Calcium + Vitamin D3 600-5 MG-MCG 1 tab(s) orally once a day; Duration: 30 day(s) Active Triamterene-HCTZ 37.5-25 MG 1/2 tab(s) o rally once a day; Duration: 90 days Active Melatonin 10 MG 1 cap(s) orally once a day (at bedtime) Active Glucosamine Chond MSM Formula - 1 tab(s) orally 3 times a day Active CoQ10 100 MG 1 cap(s) orally once a day Active Vitamin C 500 MG 1 cap(s) orally once daily; Duration: 0 Active Pravastatin Sodium 20 MG 1 tab(s) orally once a day (at bedtime) Active Meloxicam 15 MG Take 1 tablet by aretha th once daily; Duration: 90 Active Multiple Vitamin - 1 cap(s) orally once daily; Duration: 30 day(s) Active Levothyroxine Sodium 25 MCG 1 tab(s) ora lly once a day; Duration: 90 days Active Omeprazole 40 MG 1 cap(s) orally once a day Active Metoprolol Succinate ER 50 MG 1 tab(s) Orally once a day Active Irbesartan 300 MG 1 tab(s) orally once a day; Duration: 90 days Active Aspirin 81 MG 1 tab(s) orally once daily; Duration: 30 day(s) Active Magnesium Oxide 250 MG 1 tab(s) Orally o nce a day; Duration: 90 days Active Potassium Chloride ER 20 MEQ Take 1 tabl et by mouth once daily; Duration: 90 Active Immunizations Vaccine Route Administration Date Status Comme nts Fluzone High Dose (65yr and older) IM Intramuscular 02/12/2024 Administered Vital Signs Weight 152.0 lbs 02/12/2024 Blood pressure systolic 140 mm Hg 02/12/20 24 Blood pressure diastolic 80 mm Hg 024 Heart Rate 68 /min 02/12/2024 Height 62 in 02/12/2024 BMI 27.80 kg/m2 02/12/2024 Encounters Encounter Location Date Provider Diagnosis [facility] [address] [facility] [address] [place] [phone] 02/12/2024 Benitez Manning Syncope, unspecified syncope type R55 and Encounter for immunization Z23 Assessments Encounter Date Diagnosis (ICD Code) Assessment Notes Treatment Notes Treatment Clinical Notes Section Notes 02/12/2024 Syncope, unspecified syncope type (ICD-10 - R55) I would like information from Cardiology 02/12/2024 Encounter for immunization (ICD-10 - Z23) Plan Of Treatment Treatment Notes Assessment Notes Syncope, unspecified syncope type I woul d like information from Cardiology Next Appt Details Follow Up: 1 Week, Reason: Provider Name:Olive Wahl y, 02/11/2025 02:30:00 PM, [address], [address], [place], [place], [id number], Provider Name:Benitez Walters er, 04/01/2025 09:45:00 AM, [address], [address], [place], [place], [id number], Progress Notes * DHRUV, JUANADOB:1945 ( 79 yo F)Acc No.[id number]:02/12/2024 Patient: JUANA MARTINEZ Provider: Benitez Manning M.D. :1945 A ge:78 Y S ex:Female Date:02/12/2024 Address:[address] [place] [address], [id number] Subjective: * Chief Complaints: * 1 . 6 month f/u. 2. Needs labs, mammogram, colon cancer screening, flu vaccine. * HPI: C ardiology: The patient is here for a check up on Hypertension and Hyperlipidemia. 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 She was asleep, awakened feeling poorly and nauseated. She then blacked out for just a few seconds. BP was checked after the episode and was 80/60. Apparently pulse was OK, at least, no bradycardia was recorded. Pt states she has not had any other spells since that episode. Was not evaluated until she was seen today by homeland security program specialist (Dr. Peterson Hart) had EKG and Echo TODAY, and Holter event recorder was placed and she is wearing it. She brings tracing from the airport which shows anterior forces and left BBB. Comparison with prior EKG in her chart is favorable. Pt states she is needing refills for Meloxicam, Levothroxine,Omeprazole, and Potassium sent to [facility] in [place]. Denies : Chest Pain. D enies : Short of Breath. D enies : Dizziness. D enies : Palpitations. * ROS: D ERMATOLOGY: no R arcelia. n o H tari. G ASTROENTEROLOGY: no N ausea. n o V omiting. n o D iarrhea.? U ROLOGY: no D ifficulty urinating. n o B lood in urine. * Medical History: H ypertension, Diverticulosis, HCM, mammogram 2015, per Dr. Caceres, COVID 19 vaccine Apr/May 2020, Moderna, COVID 19 Vaccine booster 01/18/2021, Moderna, 06/17/2019 Negative Cologard, COVID 19 Booster bivalent 01/09/22. * Surgical History: t onsillectomy 1957, tubal ligation 1979, colonoscopy, Dr. Santos 03/2008, Knee Replacement (R), Dr. Rome Garcia, [facility] 08/18/2015, Epidural steroid, Dr. Papito Costa 03/07/2016, Holter Monitor - Negative 2017, Colonoscopy, Dr. Tripp 2014, LT Knee Replacement 10/21/2019, Hiatal Hernia Repair 04/2020, Bilateral Cataract 04/2022, LT Carpal Tunnel 02/03/2023. * Hospitalization/Major Diagno stic Procedure: P tom 08/2014. * Family History: F ather: , [...] . New since last visit: none. 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 Past smoking status: no. [...] tablet by mouth once daily , Taking Pravastatin Sodium 20 MG Tablet 1 tab(s) orally once a day (at bedtime) , Discontinued Macrobid 100 MG Capsule 1 capsule with food Orally every 12 hrs , Medication List reviewed and reconciled with the patient * Allergies: A CE Inhibitors: cough. Objective: * Vitals: W t:152.0, Temp:97.7, BP:140/80, HR:68, Nurse:TY, Ht: 62, Repeat BP:152/84, BMI:27.80. * Examination: G eneral Examination: General Appearance: N AD. H EENT: u nremarkable.?Oral cavity: n o lesions, mucosa moist and WNL, no erythema. N ene: s upple, no lymphadenopathy. C hest: n ormal shape and expansion. H eart: R SR, no ectopics initially, then with some ectopics during BP recheck. L ungs: c lear to auscultation. A bdomen:? soft and nontender, no organomegaly or masses. N eurologic Exam: I ntact, gait normal.?Skin: n ormal, no rash. P eripheral pulses: n ormal . B ack: mild dorsal kyphosis. E xtremities: n o leg edema. Assessment: * Assessment: 1. S yncope, unspecified syncope type - R55 (Primary) 2 . E ncounter for immunization - Z23 Plan: * Treatment: Value Reference Range A /G Ratio 1.4 1.1-2.5 - * A lbumin 4.1 3.5-5.3 - g/dL * A lkaline Phosphatase 84 35-121 - IU/L * A LT (SGPT) 20 <5-47 - IU/L * A ST (SGOT) 30 <5-40 - IU/L * B ilirubin, Total 0.3 <0.2-1.2 - mg/dL * B UN 22 8-23 - mg/dL * C alcium 9.6 8.6-10.4 - mg/dL * C hloride 99 97-108 - mmol/L * C O2 23 22-32 - mmol/L * C reatinine 0.76 0.50-1.00 - mg/dL * G lucose 104 H 65-99 - mg/dL * P otassium 4.6 3.5-5.3 - mmol/L * S odium 132 L 135-145 - mmol/L * P rotein 7.0 6.0-8.3 - g/dL * e GFR by Creatinine 80 >59 - mL/min/1.73m2 * Shraddha Martinez 02/18/2024 4: 28:55 PM > , , Patient informed of normal results. Notes: I would like information from Cardiology?? * Immunizations: Fluzone High Dose (65yr and older) : 0.5 mL (Route: Intramuscular) given by CEDRIC Lujan on Left Deltoid (Encounter for immunization) * Follow Up: 1 Week * Images: Billing Information: * Visit Code: 64792 Office Visit, Est Pt., Level 4. * Procedure Codes: * Electronic signature of Benitez Manning MD on 02/11/2025 at 03:25 PM EDT Sign off status: Pending * Provider: Benitez Manning M.D. Date: Generated for Jose Luis ernst/Chelsea/Daynaitting on: 03:25 PM EDT History and Physical Notes * HPI (History of Present Illness) Category Sub-Category Detail Notes Category Not es Cardiology Short of Breath Chest Pain Palpitations Dizziness Examination Category Sub-Category Detail Notes Category Not es General Examination HEENT: unremarkable Heart: RSR, no ectopics ini tially, then with some ectopics during BP recheck Lungs: clear to auscultatio n Abdomen: soft and nontender, no organomegaly or masses Extremities: no leg edema General Appearance: NAD Skin: normal, no rash Neurologic Exam: Intact, gait normal Neck: supple, no lymphaden opathy Oral cavity: no lesions, mucosa m oist and WNL, no erythema Peripheral pulses: normal Back: mild dorsal kyphosis Chest: normal shape and exp ansion
--- OUTSIDE RECORDS SUMMARY | 2024-02-23 11:45 | XMS_ITS ---
Author Organization [facility] Address [address] [place] [phone] Care Team Providers Care Telemarketing Fundraiser Name Role Phone Benitez Manning Primary Care Provider Allergies Allergen (clinical drug ingredient) Drug/Non Drug Allergy documented on EMR Reaction Allergy Type Onset Date Status angiotensin-converting enzyme inhibitor (FN) ARLEN Inhibitors cough Drug Allergy Acti ve REASON FOR VISIT 1 week f/u Medications Medication SIG (Take, Route, Frequency, Duration) Notes Start Date End Date Status Pravastatin Sodium 20 MG 1 tab(s) orally once a day (at bedtime) Active Meloxicam 15 MG Take 1 tablet by aretha once daily; Duration: 90 days Active Levothyroxine Sodium 25 MCG 1 tab(s) ora lly once a day; Duration: 90 days Active Omeprazole 40 MG 1 cap(s) orally once a day Active Potassium Chloride ER 20 MEQ Take 1 tabl et by mouth once daily; Duration: 90 Active Irbesartan 300 MG 1 tab(s) orally once a day; Duration: 90 days Active Metoprolol Succinate ER 50 MG 1 tab(s) Orally once a day Active Triamterene-HCTZ 37.5-25 MG 1/2 tab(s) o rally once a day; Duration: 90 days Active Magnesium Oxide 250 MG 1 tab(s) Orally o nce a day; Duration: 90 days Active Aspirin 81 MG 1 tab(s) orally once daily; Duration: 30 day(s) Active Vitamin C 500 MG 1 cap(s) orally once daily; Duration: 0 Active Calcium + Vitamin D3 600-5 MG-MCG 1 tab(s) orally once a day; Duration: 30 day(s) Active CoQ10 100 MG 1 cap(s) orally once a day Active Glucosamine Chond MSM Formula - 1 tab(s) orally 3 times a day Active Melatonin 10 MG 1 cap(s) orally once a day (at bedtime) Active Multiple Vitamin - 1 cap(s) orally once daily; Duration: 30 day(s) Active Vital Signs Weight 149.0 lbs 02/23/2024 Blood pressure systolic 140 mm Hg 02/23/20 24 Blood pressure diastolic 90 mm Hg 024 Heart Rate 68 /min 02/23/2024 Encounters Encounter Location Date Provider Diagnosis [facility] [address] [facility] [address] [facility] [address] [place] [phone] 02/23/2024 Benitez Manning Syncope, unspecified syncope type R55 and Essential hypertension I10 Assessments Encounter Date Diagnosis (ICD Code) Assessment Notes Treatment Notes Treatment Clinical Notes Section Notes 02/23/2024 Syncope, unspecified syncope type (ICD-10 - R55) 02/23/2024 Essential hypertension (ICD-10 - I10) Plan Of Treatment Medication Medication Name Sig Start Date Stop Date Notes Potassium Chloride ER 20 MEQ Take 1 tabl et by mouth once daily; Duration: 90 Next Appt Details Follow Up: 3 Months,sooner p rn, Reason: Provider Name:Olive Hayden Vish y, 02/11/2025 02:30:00 PM, [address], [address], [place], [phone], Provider Name:Benitez Walters er, 04/01/2025 09:45:00 AM, [address] [place] [address], [address], [place], [phone], Progress Notes * CASE, JUANADOB:1945 ( 79 yo F)Acc No.[id number]:02/23/2024 Progress Notes Patient: JUANA MARTINEZ Provider: Benitez Manning M.D. :1945 A ge:78 Y S ex:Female Date:02/23/2024 Address:[address] [place] [address] [address] [id number] Subjective: * Chief Complaints: * 1 . 1 week f/u. * HPI: N eurology: The patient is here for a 1 week follow up on Syncope spell. Pt states she is doing better and denies any more syncope. Denies : Dizziness. D enies : syncope. C ardiology: Recent BP's good: 138/88, 131/87, 126/84, 137/92, 119/81, 141/89, 139/92, 149/89, 130/91, 136/93, 147,85, 131/81. * ROS: D ERMATOLOGY: no R arcelia. [...] 03/2008, Knee Replacement (R), Dr. Rome Garcia, [facility] 08/18/2015, Epidural steroid, Dr. Papito Costa 03/07/2016, [...] . New since last visit: none. 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 Past smoking status: no. [...] tab(s) Orally once a day , Taking Pravastatin Sodium 20 MG Tablet 1 tab(s) orally once a day (at bedtime) , Taking Meloxicam 15 MG Tablet Take 1 tablet by mouth once daily , Taking Levothyroxine Sodium 25 MCG Tablet 1 tab(s) orally once a day , Taking Omeprazole 40 MG Capsule Delayed Release 1 cap(s) orally once a day , Medication List reviewed and reconciled with the patient * Allergies: A CE Inhibitors: cough. Objective: * Vitals: W t:149.0, Temp:98.1, BP:140/90, HR:68, Nurse:TY. * Examination: G eneral Examination: General Appearance: N AD. H EENT: u nremarkable.?Oral cavity: n o lesions, mucosa moist and WNL, no erythema. N ene: s upple, no lymphadenopathy. C hest: n ormal shape and expansion. H eart: R SR, no ectopics. L ungs: c lear to auscultation. N eurologic Exam: I ntact, gait normal. S kin: n ormal, no rash. P eripheral pulses: n ormal. E xtremities: n o leg edema. ? Assessment: * Assessment: 1. S yncope, unspecified syncope type - R55 (Primary) 2 . E ssential hypertension - I10 Plan: * Treatment: * Follow Up: 3 Months,sooner prn * Images: Billing Information: * Visit Code: 61292 Office Visit, Est Pt., Level 3. * Procedure Codes: * Electronic signature of Benitez Manning MD on 02/11/2025 at 03:25 PM EDT Sign off status: Pending * Provider: Benitez Manning M.D. Date: Generated for Jose Luis ernst/Chelsea/Jujusmitting on: 03:25 PM EDT History and Physical Notes * HPI (History of Present Illness) Category Sub-Category Detail Notes Category Not es Neurology Dizziness syncope Examination Category Sub-Category Detail Notes Category Not es General Examination HEENT: unremarkable Heart: RSR, no ectopics Lungs: clear to auscultatio n Extremities: no leg edema General Appearance: NAD Skin: normal, no rash Neurologic Exam: Intact, gait normal Neck: supple, no lymphaden opathy Oral cavity: no lesions, mucosa m oist and WNL, no erythema Peripheral pulses: normal Chest: normal shape and exp ansion
--- OUTSIDE RECORDS SUMMARY | 2024-05-28 06:45 | XMS_ITS ---
Author Organization [facility] Address [address] [facility] [address] [place] [phone] Care Team Providers Care Supervisor [employer]rication Name Role Phone Benitez aMnning Primary Care Provider REASON FOR VISIT 3 month f/u Encounters Encounter Location Date Provider Diagnosis [facility] [address] [place] [phone] 05/28/2024 Benitez Manning Plan Of Treatment Next Appt Details Provider Name:Olive Wahl y, 02/11/2025 02:30:00 PM, [address], [address], [place], [place], [phone], Provider Name:Benitez Walters er, 04/01/2025 09:45:00 AM, [address], [address], [place], [place], [id number], Progress Notes * JUANA BARTLETTDOB:1945 ( 79 yo F)Acc No.[id number]:05/28/2024 Progress Notes Patient: JUANA MARTINEZ Provider: Benitez Manning M.D. :1945 A ge:78 Y S ex:Female Date:05/28/2024 Address:[address] [place] [address] [id number] Subjective: * Chief Complaints: * 1 . 3 month f/u. * Medical History: Objective: * Vitals: Assessment: Plan: * Treatment: * Images: Billing Information: * Visit Code: * Procedure Codes: * Electronic signature of Benitez Manning MD on 02/11/2025 at 03:26 PM EDT Sign off status: Pending * Provider: Benitez Manning M.D. Date: 0 05/28/2024 Generated for Jose Luis ernst/Chelsea/Marah on: 1 03:26 PM EDT
--- OUTSIDE RECORDS SUMMARY | 2024-06-28 06:30 | XMS_ITS ---
Author Organization [facility] Address [address] [facility] [address] [place] [id number] Care Team Providers Care Formula Technician Name Role Phone Benitez Manning Primary Care Provider Allergies Allergen (clinical drug ingredient) Drug/Non Drug Allergy documented on EMR Reaction Allergy Type Onset Date Status angiotensin-converting enzyme inhibitor (FN) ARLEN Inhibitors cough Drug Allergy Acti ve Results Component Value Reference Range Notes P-Comprehensive Metabolic Pa alisha (CMP) Reviewed date:06/30/2024 04:50:16 PM Interpretation:Normal Performing Lab: Notes/Report: CLIA: [id number] Jerson Virk MD, Criminal Justice Program Director [address] [facility] , [address], [place] [address] Test performed by [facility], [facility] Sodium 135 135-145 mmol/L Potassium 4.7 3.5-5.3 mmol/L Chloride 100 97-108 mmol/L CO2 24 22-32 mmol/L Glucose 98 65-99 mg/dL BUN 22 8-23 mg/dL Creatinine 0.77 0.50-1.00 mg/dL Calcium 9.6 8.6-10.4 mg/dL eGFR by Creatinine 79 >59 mL/min/1.73m2 Protein 6.8 6.0-8.3 g/dL Albumin 4.1 3.5-5.3 g/dL Alkaline Phosphatase 87 35-121 IU/L ALT (SGPT) 15 <5-47 IU/L AST (SGOT) 25 <5-40 IU/L Bilirubin, Total 0.3 <0.2-1.2 mg/dL A/G Ratio 1.5 1.1-2.5 P-Magnesium Reviewed date:06/30/2024 04:50:16 PM Interpretation:Normal Performing Lab: Notes/Report: Test performed by [email or web address] [address] [place] [address] , [address], [place] [address] Jerson Virk MD, Criminal Justice Program Director CLIA: [id number] Magnesium 2.0 1.6-2.4 mg/dL P-TSH Reviewed date:06/30/2024 04:50:16 PM Interpretation:Normal Performing Lab: Notes/Report: Test performed by [email or web address] [address] [place] [address] , [address], [place] [address] Jerson Virk MD, Criminal Justice Program Director CLIA: [id number] TSH 2.20 0.43-5.25 mU/L Reason For Referral Reason needs appt Diagnosis 1 Cardiac dysrhythmia, unspecified (I49.9) [facility] Referring Provider First Name Benitez Townsend Referring Provider Last Name Nigel Referring Provider Speciality [facility] Referred Provider Pina Smith Referred Provider Specialty Cardiovascul ar Disease General Notes Josie White 11:28:04 AM > faxed to [facility] Cardiology, Josie White 07/07/2024 8:56:05 AM > spoke with cardiology; referral received Referral Priority Routine REASON FOR VISIT check up, Needs mammogram Medications Medication SIG (Take, Route, Frequency, Duration) Notes Start Date End Date Status Aspirin 81 MG 1 tab(s) orally once daily; Duration: 30 day(s) Active Magnesium Oxide 250 MG 1 tab(s) Orally o nce a day; Duration: 90 days Active Potassium Chloride ER 20 MEQ Take 1 tabl et by mouth once daily; Duration: 90 Active Glucosamine Chond MSM Formula - 1 [...] once a day; Duration: 30 day(s) Active Irbesartan 300 MG 1 tab(s) orally once a day; Duration: 90 days Active CoQ10 100 MG 1 cap(s) orally once a day Active Metoprolol Succinate ER 50 MG 1 tab(s) Orally once a day Active Pravastatin Sodium 20 MG 1 tab(s) orally once a day (at bedtime) Active Meloxicam 15 MG Take 1 tablet by aretha th once daily; Duration: 90 days Active Levothyroxine Sodium 25 MCG 1 tab(s) ora lly once a day; Duration: 90 days Active Omeprazole 40 MG 1 cap(s) orally once a day Active Triamterene-HCTZ 37.5-25 MG 1 orally onc e a day; Duration: 90 days Active Problems Problem Type SNOMED Code ICD Code Onset Dates Problem Status W/U Status Risk Notes Problem Pure hypercholesterolemia (341013560) Pure hypercholesterolemia (E78.00) Active confirmed Problem Spinal stenosis of lumbar region (85152560) Spinal stenosis of lumbar region, unspecified whether neurogenic claudication present (M48.061) Active confirmed Vital Signs Weight 155.2 lbs 06/28/2024 Blood pressure systolic 142 mm Hg 06/29/19 25 Blood pressure diastolic 90 mm Hg 025 Heart Rate 77 /min 06/28/2024 Height 62 in 06/28/2024 BMI 28.38 kg/m2 06/28/2024 Encounters Encounter Location Date Provider [facility] [address] [facility] [address] [phone] 06/28/2024 Benitez Manning Essential hypertensi on I10 ; Pure hypercholesterolemia E78.0 ; Acquired hypothyroidism E03.9 ; Spinal stenosis of lumbar region M48.06 ; Leg cramps R25.2 and Cardiac dysrhythmia, unspecified I49.9 Assessments Encounter Date Diagnosis (ICD Code) Assessment Notes Treatment Notes Treatment Clinical Notes Section Notes 06/28/2024 Essential hypertensi on (ICD-10 - I10) 06/28/2024 Pure hypercholesterolemia (ICD-10 - E78.0) 06/28/2024 Acquired hypothyroid ism (ICD-10 - E03.9) 06/28/2024 Spinal stenosis of lumbar region (ICD-10 - M48.06) 06/28/2024 Leg cramps (ICD-10 - R25.2) 06/28/2024 Cardiac dysrhythmia, unspecified (ICD-10 - I49.9) Plan Of Treatment Medication Medication Name Sig Start Date Stop Date Notes Magnesium Oxide 250 MG 1 tab(s) Orally o nce a day; Duration: 90 days Potassium Chloride ER 20 MEQ Take 1 tabl et by mouth once daily; Duration: 90 Triamterene-HCTZ 37.5-25 MG 1 orally onc e a day; Duration: 90 days Referrals Referral Date Details 06/28/2024 06/28/2024, needs ap pt, Pina Smith Next Appt Details Follow Up: 3 Weeks, Reason: Provider Name:Olive Blake Edwinada y, 02/11/2025 02:30:00 PM, [address], [place], [place], [id number], Provider Name:Benitez Walters er, 04/01/2025 09:45:00 AM, [address] [facility] [address] [facility], [address], [place], [place], [phone], Progress Notes * JUANA BARTLETTDOB:1945 ( 79 yo F)Acc No.[id number]:06/28/2024 Progress Notes Patient: JUANA MARTINEZ Provider: Benitez Manning M.D. :1945 A ge:79 Y S ex:Female Date:06/28/2024 Address:[address] [place] [address], [id number] Subjective: * Chief Complaints: * 1 . Check up. 2. Needs mammogram. * HPI: C ardiology: The pt is here today for a check up on Hypertension and Hyperlipidemia. Pt states she is doing good and denies any new concerns. Pt is fasting. Pt states she is needing refills sent to [facility] in [place] for 90 days supply for Pravastatin, Levothyroxine, Magnesium, Metoprolol, Meloxicam, and Potassium. Denies : Chest Pain. D enies : Short of Breath. D enies : Dizziness. D enies : Palpitations. Had Cardiac MRI May 05. I have no report. * ROS: D ERMATOLOGY: no R arcelia. [...] 03/2008, Knee Replacement (R), Dr. Rome Garcia, [facility] 08/18/2015, Epidural steroid, Dr. Papito Costa [...] . New since last visit: none. 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 Past smoking status: no. Occup. [...] once a day (at bedtime) , Taking Magnesium Oxide 250 MG Tablet 1 tab(s) Orally once a day , Taking Aspirin 81 MG Tablet Delayed Release 1 tab(s) orally once daily , Taking Metoprolol Succinate ER 50 MG [...] cap(s) orally once a day , Taking Irbesartan 300 MG Tablet 1 tab(s) orally once a day , Taking Potassium Chloride ER 20 MEQ Tablet Extended Release Take 1 tablet by mouth once daily , Taking Triamterene-HCTZ 37.5-25 MG Tablet 1/2 tab(s) orally once a day , Medication List reviewed and reconciled with the patient * Allergies: A CE Inhibitors: cough. Objective: * Vitals: W t:155.2, Temp:98.7, BP:142/90, HR:77, Nurse:YT, Ht: 62, Repeat BP:164/94, BMI:28.38. * Examination: G eneral Examination: General Appearance: N AD. H EENT: u nremarkable.?Oral cavity: n o lesions, mucosa moist and WNL, no erythema. N ene: s upple, no lymphadenopathy. C hest: n ormal shape and expansion. H eart: R SR, no ectopics. L ungs: c lear to auscultation. A bdomen: soft and nontender, no organomegaly or masses.?Neurologic Exam: I ntact, gait normal. S kin: n ormal, no rash. P eripheral pulses: n ormal . B ack: mild dorsal kyphosis. E xtremities: t race leg edema.? Assessment: * Assessment: 1. E ssential hypertension - I10 (Primary) 2 . P ure hypercholesterolemia - E78.0 3 . A cquired hypothyroidism - E03.9 4 . S abisai stenosis of lumbar region - M48.06 5 . L eg cramps - R25.2 6 . C ardiac dysrhythmia, unspecified - I49.9 Plan: * Treatment: Value Reference Range A /G Ratio 1.5 1.1-2.5 - * A lbumin 4.1 3.5-5.3 - g/dL * A lkaline Phosphatase 87 35-121 - IU/L * A LT (SGPT) 15 <5-47 - IU/L * A ST (SGOT) 25 <5-40 - IU/L * B ilirubin, Total 0.3 <0.2-1.2 - mg/dL * B UN 22 8-23 - mg/dL * C alcium 9.6 8.6-10.4 - mg/dL * C hloride 100 97-108 - mmol/L * C O2 24 22-32 - mmol/L * C reatinine 0.77 0.50-1.00 - mg/dL * G lucose 98 65-99 - mg/dL * P otassium 4.7 3.5-5.3 - mmol/L * S odium 135 135-145 - mmol/L * P rotein 6.8 6.0-8.3 - g/dL * e GFR by Creatinine 79 >59 - mL/min/1.73m2 * Shraddha Martinez 06/30/2024 4:49 :27 PM >Left voicemail informing of normal lab results ?LAB: P-Magnesium (Collection Date & Time - 06/28/2024 10:14 AM)?Normal* Value Reference Range M agnesium 2.0 1.6-2.4 - mg/dL * Shraddha Martinez 06/30/2024 4:49 :27 PM >Left voicemail informing of normal lab results 2.?Acquired hypothyroidism?LAB: P-TSH (Collection Date & Time - 06/28/2024 10:14 AM)?Normal* Value Reference Range T SH 2.20 0.43-5.25 - mU/L * Shraddha Martinez 06/30/2024 4:49 :27 PM >Left voicemail informing of normal lab results 3.?Cardiac dysrhythmia, unspecified? Referral To:Pina Smith??Cardiovascular Disease ?Reason:needs appt * Procedure Codes: G 2211 Complex e/m visit add on, 3077F SYST BP = 140 MM HG6 IT, 3080F DIAST BP = 90 MM HG * Follow Up: 3 Weeks * Images: Billing Information: * Visit Code: 68407 Office Visit, Est Pt., Level 4. * Procedure Codes: G2211 Complex e/m visit add on. 3077F SYST BP = 140 MM HG6 IT. 3080F DIAST BP = 90 MM HG. * Electronic signature of Benitez Manning MD on 02/11/2025 at 03:25 PM EDT Sign off status: Pending * Provider: Benitez Manning M.D. Date: 0 06/28/2024 Generated for Jose Luis ernst/Chelsea/eTransmitting on: 1 03:25 PM EDT History and Physical Notes * HPI (History of Present Illness) Category Sub-Category Detail Notes Category Not es Cardiology Short of Breath Had Cardiac MRI May 05. I have no report. Chest Pain Palpitations Dizziness Examination Category Sub-Category Detail Notes Category Not es General Examination HEENT: unremarkable Heart: RSR, no ectopics Lungs: clear to auscultatio n Abdomen: soft and nontender, no organomegaly or masses Extremities: trace leg edema General Appearance: NAD Skin: normal, no rash Neurologic Exam: Intact, gait normal Neck: supple, no lymphaden opathy Oral cavity: no lesions, mucosa m oist and WNL, no erythema Peripheral pulses: normal Back: mild dorsal kyphosis Chest: normal shape and exp ansion Consultation Request Notes Referral Date Referring Provider Referred Provider Not es 06/28/2024 Benitez Manning Yaz needs appt
--- OUTSIDE RECORDS SUMMARY | 2024-07-19 12:00 | XMS_ITS ---
Author Organization [facility] Address [address] [facility] [address] [place] [phone] Care Team Providers Care Customer Contact Sales Associate Name Role Phone Benitez Manning Primary Care Provider Allergies Allergen (clinical drug ingredient) Drug/Non Drug Allergy documented on EMR Reaction Allergy Type Onset Date Status angiotensin-converting enzyme inhibitor (FN) ARLEN Inhibitors cough Drug Allergy Acti ve REASON FOR VISIT 3 week f/u Medications Medication SIG (Take, Route, Frequency, Duration) Notes Start Date End Date Status Melatonin 10 MG 1 cap(s) orally once a day (at bedtime) Active Magnesium Oxide 250 MG 1 tab(s) Orally o nce a day; Duration: 90 days Active Potassium Chloride ER 20 MEQ Take 1 tabl et by mouth once daily; Duration: 90 Active Aspirin 81 MG 1 tab(s) orally once daily; Duration: 30 day(s) Active Omeprazole 40 MG 1 cap(s) orally once a day Active CoQ10 100 MG 1 cap(s) orally once a day Active Glucosamine Chond MSM Formula - 1 tab(s) orally 3 times a day Active Vitamin C 500 MG 1 cap(s) orally once daily; Duration: 0 Active Calcium + Vitamin D3 600-5 MG-MCG 1 tab(s) orally once a day; Duration: 30 day(s) Active Multiple Vitamin - 1 cap(s) orally once daily; Duration: 30 day(s) Active Irbesartan 300 MG 1 tab(s) orally once a day; Duration: 90 days Active Levothyroxine Sodium 25 MCG Take 1 table t by mouth once daily; Duration: 90 Active Pravastatin Sodium 20 MG 1 tab(s) Orally once a day (at bedtime); Duration: 90 days Active Meloxicam 15 MG 1 tablet Orally Once a day; Duration: 90 days Active Metoprolol Succinate ER 50 MG 1 tab(s) Orally once a day; Duration: 90 days Active Triamterene-HCTZ 37.5-25 MG 1 orally onc e a day; Duration: 90 days Active Vital Signs Weight 151.0 lbs 07/19/2024 Blood pressure systolic 140 mm Hg 07/20/19 25 Blood pressure diastolic 86 mm Hg 025 Heart Rate 77 /min 07/19/2024 Height 62 in 07/19/2024 BMI 27.62 kg/m2 07/19/2024 Encounters Encounter Location Date Provider Diagnosis [facility] [address] [place] [phone] 07/19/2024 Benitez Manning Essential hypertensi on I10 Assessments Encounter Date Diagnosis (ICD Code) Assessment Notes Treatment Notes Treatment Clinical Notes Section Notes 07/19/2024 Essential hypertension (ICD-10 - I10) continue present treatment Plan Of Treatment Treatment Notes Assessment Notes Essential hypertension continue present treatment Next Appt Details Follow Up: 3 Months, Reason: Provider Name:Olive Wahl y, 02/11/2025 02:30:00 PM, [address], [address], [place], [place], [id number], Provider Name:Benitez Walters er, 04/01/2025 09:45:00 AM, [address], [address], [place], [place], [phone], Progress Notes * DHRUV, TIFFANYYLDOB:1945 ( 79 yo F)Acc No.[id number]:07/19/2024 Patient: JUANA MARTINEZ Provider: Benitez Manning M.D. :1945 A ge:79 Y S ex:Female Date:07/19/2024 Address:[address] [place] [address], [id number] Subjective: * Chief Complaints: * 1 . 3 week f/u. * HPI: H PI: 79 year old female presents with c/o Here for follow up on:?Pt is here today for a f/u on her BP. Pt sts she does check her BP at home and it has been running 120/138s over 80s. P t sts she had blood work done at her last appt as well and would like t o disucss that. * ROS: D ERMATOLOGY: no R arcelia. [...] 03/2008, Knee Replacement (R), Dr. Rome Garcia, [facility] 08/18/2015, Epidural steroid, Dr. Papito Costa 03/07/2016, [...] . New since last visit: none. 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 Past smoking status: no. [...] once a day (at bedtime) , Taking Aspirin 81 MG Tablet Delayed Release 1 tab(s) orally once daily , Taking Omeprazole 40 MG Capsule Delayed Release 1 cap(s) orally once a day , Taking Magnesium Oxide 250 MG Tablet 1 tab(s) Orally once a day , Taking Potassium Chloride ER 20 MEQ Tablet Extended Release Take 1 tablet by mouth once daily , Taking Triamterene-HCTZ 37.5-25 MG Tablet 1 orally once a day , Taking Metoprolol Succinate ER 50 MG Tablet Extended Release 24 Hour 1 tab(s) Orally once a day , Taking Pravastatin Sodium 20 MG Tablet 1 tab(s) Orally once a day (at bedtime) , Taking Meloxicam 15 MG Tablet 1 tablet Orally Once a day , Taking Irbesartan 300 MG Tablet 1 tab(s) orally once a day , Taking Levothyroxine Sodium 25 MCG Tablet Take 1 tablet by mouth once daily , Medication List reviewed and reconciled with the patient * Allergies: A CE Inhibitors: cough. Objective: * Vitals: W t: 151.0, Temp: 98.5, BP: 140/86, HR: 77, Nurse: [facility], Ht: 62, Repeat BP: 142/88, BMI:27.62. * Examination: G eneral Examination: General Appearance: [...] B ack: mild dorsal kyphosis. E xtremities: m inimal leg edema.? Assessment: * Assessment: 1. E ssential hypertension - I10 (Primary) Plan: * Treatment: * Procedure Codes: G 2211 Complex e/m visit add on, 3077F SYST BP = 140 MM HG6 IT, 3079F DIAST BP 80- 89 MM HG * Follow Up: 3 Months * Images: Billing Information: * Visit Code: 79458 Office Visit, Est Pt., Level 3. * Procedure Codes: G2211 Complex e/m visit add on. 3077F SYST BP = 140 MM HG6 IT. 3079F DIAST BP 80-89 MM HG. * Electronic signature of Benitez Manning MD on 02/11/2025 at 03:26 PM EDT Sign off status: Pending * Provider: Benitez Manning M.D. Date: 0 07/19/2024 Generated for Jose Luis ernst/Chelsea/Daynaitting on: 1 03:26 PM EDT History and Physical Notes * HPI (History of Present Illness) Category Sub-Category Detail Notes Category Not es HPI Here for follow up on: Pt is her e today for a f/u on her BP. Pt sts she does check her BP at home and it has been running 120/138s over 80s. Pt sts she had blood work done at her last appt as well and would like to disucss that Examination Category Sub-Category Detail Notes Category Not es General Examination HEENT: unremarkable Heart: RSR, no ectopics Lungs: clear to auscultatio n Abdomen: soft and nontender, no organomegaly or masses Extremities: minimal leg edema General Appearance: NAD Skin: normal, no rash Neurologic Exam: Intact, gait normal Neck: supple, no lymphaden opathy Oral cavity: no lesions, mucosa m oist and WNL, no erythema Peripheral pulses: normal Back: mild dorsal kyphosis Chest: normal shape and exp ansion
--- OUTSIDE RECORDS SUMMARY | 2024-10-18 05:45 | XMS_ITS ---
Author Organization [facility] Address [facility] [address] [place] [phone] Care Team Providers Care Ethical Hacker Name Role Phone Benitez Manning Primary Care Provider [phone] Allergies Allergen (clinical drug ingredient) Drug/Non Drug Allergy documented on EMR Reaction Allergy Type Onset Date Status angiotensin-converti ng enzyme inhibitor (FN) ARLEN Inhibitors cough Drug Allergy Active gabapentin Gabapentin confusion/dyspho chetan Drug Allergy Active Results Component Value Reference Range Notes P-Comprehensive Metabolic Pa alisha (CMP) Reviewed date:10/22/2024 12:18:27 PM Interpretation:gluc 111, bun 27 Performing Lab: Notes/Report: CLIA: [id number] Jerson Virk MD, Home Economics Expert [address] [place] [address] , [address], [place] [address] Test performed by [employer], [facility] Sodium 135 135-145 mmol/L Potassium 4.6 3.5-5.3 [...] Interpretation:38 Performing Lab: Notes/Report: Test performed by [employer] [address] [place] [address] [address], [place] [address] Jerson Virk MD, Home Economics Expert CLIA: [id number] Erythrocyte Sedimentation Ra te (ESR), Automated 38 <31 mm/hr P-Lipid Panel Reviewed date:10/22/2024 12:18:27 PM Interpretation:Normal Performing Lab: Notes/Report: CLIA: [id number] Jerson Virk MD, Home Economics Expert [address] [place] [address] [address], [place] [address] Test performed by [employer] Cholesterol 140 <200 mg/dL Triglycerides 121 <150 [...] Interpretation:Normal Performing Lab: Notes/Report: Test performed by [employer] [address] [place] [address] , [address], [place] [address] Jerson Virk MD, Home Economics Expert CLIA: [id number] Magnesium 2.0 1.6-2.4 mg/dL P-TSH Reviewed date:10/22/2024 12:18:27 PM Interpretation:Normal Performing Lab: Notes/Report: Test performed by [facility] [address] [place] [address] , [address], [place] [address] Jerson Virk MD, Home Economics Expert CLIA: [id number] TSH 2.49 0.43-5.25 mU/L Reason For Referral Reason Bilateral SI joint p ain Diagnosis 1 Low back pain (M54.5 ) [facility] Referring Provider First Name Benitez Townsend Referring Provider Last Name Nigel Referring Provider Speciality Family Pra ctice Referred Provider Specialty Physical The rapist General Notes Josie White 2024 10:50:17 AM > faxed to [facility] PT Referral Priority Routine REASON FOR [...] Status Risk Notes Problem Sacroiliac joint pain (319434918) Sacroiliac joint pain (M53.3) Active confirmed Problem Hyperlipidemia (31054914) Hyperlipidemia (E78.5) Active confirmed Vital Signs Weight 149.8 lbs 10/18/2024 Blood pressure systolic 102 mm Hg 10/19/19 25 Blood pressure diastolic 70 mm Hg 025 Heart Rate 90 /min 10/18/2024 Height 62 in 10/18/2024 BMI 27.4 kg/m2 10/18/2024 Encounters Encounter Location Date [facility] [address] [phone] 10/18/2024 Benitez Manning Essential hypertensi on I10 [...] Details Follow Up: 6 Weeks, Reason: Provider Name:Olive Wahl y, 02/11/2025 02:30:00 PM, [address], [address], [place], [phone], Provider Name:Benitez Walters er, 04/01/2025 09:45:00 AM, [address], [address], [place], [place], [phone], Progress Notes * JUANA BARTLETTDOB:1945 ( 79 yo F)Acc No.[id number]:10/18/2024 Progress Notes Patient: JUANA MARTINEZ Provider: Benitez Manning M.D. :1945 A ge:79 Y S ex:Female Date:10/18/2024 Address:[address] [place] [address] [id number] Subjective: * Chief [...] 03/2008, Knee Replacement (R), Dr. Rome Garcia, [facility] 08/18/2015, Epidural steroid, Dr. Papito Costa 03/07/2016, [...] . New since last visit: none. 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 Past smoking status: no. [...] H yperlipidemia - E78.5 9 . B MA 27.0-27.9,adult - Z68.27 Plan: * Treatment: Value [...] * Images: Billing Information: * Visit Code: 49085 Office Visit, Est Pt., Level 4. * [...] Manning M.D. Date: 0 10/18/2024 Generated for Maurisioi sujata/Fabrockg/eTransmitting on: 1 03:26 PM EDT History and [...]
--- OUTSIDE RECORDS SUMMARY | 2024-11-25 09:45 | XMS_ITS ---
Author Organization [facility] Address [facility] [facility] [address] [place] [id number] Care Team Providers Care Target Developer Name Role Phone Benitez Manning Primary Care Provider Allergies Allergen (clinical drug ingredient) Drug/Non Drug Allergy documented on EMR Reaction Allergy Type Onset Date Status angiotensin-converting enzyme inhibitor (FN) ARLEN Inhibitors cough Drug Allergy Acti ve REASON FOR VISIT 6 week f/u Medications Medication SIG (Take, Route, Frequency, Duration) Notes Start Date End Date Status Levothyroxine Sodium 25 MCG Take 1 table t by mouth once daily; Duration: 90 Active Omeprazole 40 MG take 1 capsule orall y once a day; Duration: 90 days Active Irbesartan 300 MG 1 tab(s) orally once a day; Duration: 90 days Active Metoprolol Succinate ER 50 MG 1 tablet Orally Once a day; Duration: 90 days Active Meloxicam 15 MG 1 tablet Orally Once a day; Duration: 90 days Active Pravastatin Sodium 20 MG 1 tab(s) Orally once a day (at bedtime); Duration: 90 days Active Potassium Chloride ER 20 MEQ Take 1 tabl et by mouth once daily; Duration: 90 Active Triamterene-HCTZ 37.5-25 MG 1 orally onc e a day; Duration: 90 days Active Aspirin 81 MG 1 tab(s) orally once daily; Duration: 30 day(s) Active Magnesium Oxide 250 MG 1 tab(s) Orally o nce a day; Duration: 90 days Active Vitamin C 500 MG 1 cap(s) orally once daily; Duration: 0 Active Calcium + Vitamin D3 600-5 MG-MCG 1 tab(s) orally once a day; Duration: 30 day(s) Active Melatonin 10 MG 1 cap(s) orally once a day (at bedtime) Active CoQ10 100 MG 1 cap(s) orally once a day Active Glucosamine Chond MSM Formula - 1 tab(s) orally 3 times a day Active Multiple Vitamin - 1 cap(s) orally once daily; Duration: 30 day(s) Active Vital Signs Weight 150.2 lbs 11/25/2024 Blood pressure systolic 120 mm Hg 11/26/19 25 Blood pressure diastolic 76 mm Hg 025 Heart Rate 82 /min 11/25/2024 Height 62 in 11/25/2024 BMI 27.47 kg/m2 11/25/2024 Encounters Encounter Location Date Provider Diagnosis [facility] [address] [place] [address] [facility] [address] [place] [id number] 11/25/2024 Benitez Manning Sacroiliac joint darvin n M53.3 ; Hyperlipidemia E78.5 ; Encounter for weight management Z76.89 and BMI 27.0-27.9,adult Z68.27 Assessments Encounter Date Diagnosis (ICD Code) Assessment Notes Treatment Notes Treatment Clinical Notes Section Notes 11/25/2024 Sacroiliac joint pain (ICD-10 - M53.3) continue current therapy 11/25/2024 Hyperlipidemia (ICD-10 - E78.5) 11/25/2024 Encounter for weight management (ICD-10 - Z76.89) 11/25/2024 BMI 27.0-27.9,adult (ICD-10 - Z68.27) Plan Of Treatment Treatment Notes Assessment Notes Sacroiliac joint pain continue current t herapy Next Appt Details Follow Up: 4 Months, Reason: Provider Name:Olive Wahl y, 02/11/2025 02:30:00 PM, [address] [place] [address] [facility], [address], [place], [id number], Provider Name:Benitez Walters er, 04/01/2025 09:45:00 AM, [address] [place] [address] [facility], [address], [place], [phone], Progress Notes * CASE, CHERYLDOB:1945 ( 79 yo F)Acc No.[id number]:11/25/2024 Progress Notes Patient: JUANA MARTINEZ Provider: Benitez Manning M.D. :1945 A ge:79 Y S ex:Female Date:11/25/2024 Address:[address] [place] [address] [id number] Subjective: * Chief Complaints: * 1 . 6 week f/u. * HPI: H ip/Thigh: The pt is here for a follow up on bilateral hip pain. Pt states her hip pain better. Pt states she has been doing physical therapy and that is helping. 79 year old female presents with c/o hip pain. P ain: At left deltoid insertion related to prior injury. C onstitutional: She has started an injection related to a research study. Double blind study. 30 weeks. Once a week. Once a month follow-up after 30 weeks. Seems to have decreased appetite. She does not know what the medication is. [employer] [facility] research group. [place]. * ROS: D ERMATOLOGY: no R arcelia. [...] Dr. Rome Garcia, [facility] 08/18/2015, Epidural steroid, Dr. Papito Costa 03/07/2016, [...] . New since last visit: none. 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 Past smoking status: no. Occup. exposure: none. [...] Inhibitors: cough. Objective: * Vitals: W t: 150.2, Temp: 97.7, BP: 120/76, HR: 82, Nurse: TY, Ht: 62, BMI:27.47. * Examination: G eneral Examination: General Appearance: [...] joint pain - M53.3 (Primary) 2 . H yperlipidemia - E78.5? 3. E ncounter for weight management - Z76.89 4 . B ND 27.0-27.9,adult - Z68.27 Plan: * Treatment: * Procedure Codes: G 2211 Complex e/m visit add on, G8420 BMI<30 AND >=22 CALC & DOCU, 1036F TOBACCO NON-USER, G8783 BP SCR PRFRM RCMDD DEFIND SCR INTVL, G8752 MOST RECENT SYSTOLIC BP < 140MM HG, G8754 MOST RECENT DIASTOLIC BP < 90MM HG * Follow Up: 4 Months * Images: Billing Information: * Visit Code: 46538 Office Visit, Est Pt., Level 3. * Procedure Codes: G2211 Complex e/m visit add on. G8420 BMI<30 AND >=22 CALC & DOCU. 1036F TOBACCO NON-USER. G8783 BP SCR PRFRM RCMDD DEFIND SCR INTVL. G8752 MOST RECENT SYSTOLIC BP < 140MM HG. G8754 MOST RECENT DIASTOLIC BP < 90MM HG. * Electronic signature of Benitez Manning MD on 02/11/2025 at 03:26 PM EDT Sign off status: Pending * Provider: Benitez Manning M.D. Date: 0 11/25/2024 Generated for Printi sujata/Chelsea/eTransmitting on: 1 03:26 PM EDT History and Physical Notes * HPI (History of Present Illness) Category Sub-Category Detail Notes Category Not es Hip/Thigh hip pain Constitutional She has start ed an injection related to a research study. Double blind study. 30 weeks. Once a week. Once a month follow-up after 30 weeks. Seems to have decreased appetite. She does not know what the medication is. [employer] [facility] research group. [place]. Pain At left deltoid insertion related to prior injury. Examination Category Sub-Category Detail Notes Category Not [...]
--- OUTSIDE RECORDS SUMMARY | 2025-02-11 15:25 | XMS_ITS | Referral Summary ---
Author Organization [facility] ([place], [place], [place], [place]) Address [address] [place] [address] Care Team Providers Care Notched Blade Loader Name Role Phone Lane Manning MD Primary Care Provider [phone] Allergies No known active allergies Medications ascorbic acid, vitamin C, 550 mg/1.1 gram (scoop) Powd Take by mouth. Active coenzyme Q10 10 mg capsule Take 1 tablet by mouth daily. Active meloxicam (MOBIC) 15 MG tablet 15 mg daily . 03/25/2022 Active pravastatin (PRAVACHOL) 20 MG tablet Take 20 mg by mouth nightly. 03/26/2022 Active irbesartan (AVAPRO) 300 MG tablet Take 300 mg by mouth daily . 03/25/2022 Active esomeprazole (NexIUM) 40 MG capsule 03/25/2022 Active levothyroxine (SYNTHROID, LEVOTHROID) 25 MCG tablet Take 25 mcg by mouth daily. 04/27/2022 Active potassium chloride SA (K-DUR,KLOR-CON -M) 20 MEQ tablet Take 20 mEq by mouth daily. 05/05/2022 Active triamterene-hyd roCHLOROthiazid e (MAXZIDE-25) 37.5-25 mg per tablet Take 0.5 tablets by mouth daily. 04/27/2022 Active magnesium oxide 250 mg magnesium Tab tablet Take 250 mg by mouth daily. Active multivitamin per tablet Take 1 tablet by mouth daily. Active glucosamine-cho ndroitin 500-400 mg tablet Take 1 tablet by mouth 3 (three) times daily. Active melatonin 10 mg TbDL Take by mouth every night as needed. Active metoprolol succinate (TOPROL-XL) 25 MG 24 hr tablet Take 2 tablets (50 mg total) by mouth daily. 90 tablet 3 06/05/2022 Active Social History Tobacco Use Types Packs/Day Years Used Date Smoking Tobacco: Never Smokeless Tobacco: Never Alcohol Use Standard Drinks/Week Comments Yes 0 (1 standard drink = 0.6 oz pur e alcohol) rarely Food Insecurity Answer Date Recorded Food run out past 12 months Not on file 04/28 Food did not last past 12 months Not on file 05/11/2023 Employment Answer Date Recorded Help finding and keeping a job Not on file 0 05/11/2023 Family and Community Support Answer Henrik e Recorded Help with Day to Day Activities Not on file 05/11/2023 Feeling Lonely or Isolated Not on file 05/11 Educational Attainment Answer Date Dov rded Speak language other than Wallisian at home Not on file 05/11/2023 Want help with school or training Not on file 05/11/2023 Substance Use Answer Date Recorded Used prescription meds for non-medical reasons N ot on file 05/11/2023 Used illegal drugs past 12 months Not on file 05/11/2023 Comments No Sex and Gender Information Value Date Recorded Sex Assigned at Not on file 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 Gender Identity Not on file Sexual Orientation Not on file Last Filed Vital Signs Vital Sign Reading Time Taken Comments Blood Pressure 132/73 06/05/2022 11:50 AM EST Pulse 70 06/05/2022 11:50 AM EST Temperature 36.8 C (98.3 F) 06/05/2022 8:30 AM EST Respiratory Rate 16 06/05/2022 11:50 AM EST Oxygen Saturation 96% 06/05/2022 11:50 AM EST Inhaled Oxygen Concentration - - Weight 68 kg (150 lb) 06/05/2022 8:30 AM EST Height 160 cm (5' 3 ) 06/05/2022 8:30 AM EST Body Mass Index 26.57 06/05/2022 8:30 AM EST Plan of Treatment Not on file Medical Devices Implanted Type Area Metrology Specialist Device Identifier Shelf Expiration Date Model / Serial / Lot Angioseal Vip-06/05/2022 Implanted:06/05 by Brandon Hart MD (Quantity not on file) [employer] 02/25/2023 / / [id number] Insurance [place] [id number] MEDICARE PART A B CR[facility] Care Teams Notched Blade Loader Relationship Specialty Start Date End Date Lane Manning MD [address] [place] [address] PCP - General Family Medicine 06/05/22
--- OUTSIDE RECORDS SUMMARY | 2025-02-11 15:25 | XMS_ITS | Clinical Summary ---
Author Organization [facility] ([place], [place], [place], [place]) Address [address] [place] [address] Care Team Providers Care Canoe Inspector Final Name Role Phone Lane Manning MD Primary Care Provider [phone] Allergies No known active allergies Medications ascorbic [...] Date Dov rded Speak language other than [place] at home Not on file 05/11/2023 Want help with school or training Not on file 05/11/2023 Substance Use Answer Date Recorded Used prescription meds for non-medical reasons N ot on file 05/11/2023 Used illegal drugs past 12 months Not on file 05/11/2023 Comments No Sex and Gender Information Value Date Recorded Sex Assigned at Not on file 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 Gender Identity Not on file Sexual Orientation [...] 06/05/2022 8:30 AM EST Plan of Treatment Health Maintenance Due Date Last Done Comments Medicare Initial AWV G0438 DXA SCAN 1945 Depression Screening (12+) 1958 Hepatitis C Screening 1964 Pneumococcal 50+ years (2 of 2 - PCV) 02/03/2018 02/03/2017 Respiratory Syncytial Virus (RSV) Adult or (1 - 1-dose 75+ series) 2021 Tobacco Cessation Counseling and Screening (12+) 06/05/2023 06/05/2022 Falls Risk Screening 04/28/2024 COVID-19 VACCINE (5 - 2024-2 6 season) 2024 01/09/2022, 01/17/2021, 06/05/2020, Additional history exists Influenza Vaccine (#1) 2024 , 02/06/2021, 02/02/2020, Additional history exists DTAP/TDAP/TD VACCINES (3 - T d or Tdap) 05/05/2027 05/05/2017, 07/02/1996 Shingles Vaccine (Zoster) Completed 01/03/2022, Medical Devices Implanted Type Area Collar Feller Device Identifier Shelf Expiration Date Model / Serial / Lot Angioseal Vip-06/05/2022 Implanted:06/05 by Brandon Hart MD (Quantity not on file) [employer] 02/25/2023 / / [id number] Insurance MEDICARE PART A B /[facility] Care Teams Canoe Inspector Final Relationship Specialty Start Date End Date Lane Manning MD [address] [place] [address] PCP - General Family Medicine 06/05/22
--- OUTSIDE RECORDS SUMMARY | 2025-02-11 15:26 | XMS_ITS | Data Portability ---
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 Plan of Treatment Reminders Order Date Submit Date Provider Last Modified By Organization Details Last Modified Time Details Appointments RECHECK 2024 02:00P Zia PERAZA MD Not available Not available Not available FOLLOW UP DAK 2025 11:00A Zia RIVAS MD Not available Not available Not available Lab None recorded. Referral None recorded. Procedures None recorded. Surgeries None recorded. Imaging None recorded. Medication Orders irbesarta n 150 mg tablet 2023 024 [email or web address] [facility], [address] [place], [address], 02/12/2024 08:53:26 Patient TargetsNo targets recorded. Patient Instructions Encounter Date Encounter Id Patient Instructions Last Modified By Organization Details Last Modified Time 05/27/2022 [id number] body mass index: care instructions [email or web address] Not available 05/27/2022 15:25:27 Reason for Referral None Reported. Results Created Date Observation Date Name Description Value Unit Range Abnormal Flag Note LastModifiedBy Organization Detail LastModifiedTime 05/07/1905/06/2022 elect mavis diogr am No observ ation record ed. BARCODE Not Available 2022 07:23:04 05/13/1905/08/2022 albino r monit or No observ ation record ed. [email or web address] Not Available 2022 09:05:10 05/27/19 23 NM, myoca rdial perfu fabien scan No observ ation record ed. [email or web address] [facility] [address] [place], [address], 05/27/2022 15:13:18 02/12/20 24 02/12/2024 US, doppl er echoc ardio gram, w/ color flow No observ ation record ed. [email or web address] [facility] Cardiology [address], [place], [address], 02/12/2024 13:52:20 02/13/20 24 02/12/2024 elect rocar diogr am No observ ation record ed. BARCODE Not Available 2023 15:41:51 02/23/20 24 02/23/2024 event monit or No observ ation record ed. [email or web address] Not Available 2023 09:37:26 05/28/19 25 05/05/2024 MRI, heart funct ion and morph ology , w/wo contr ast No observ ation record ed. [facility] [address] [place], [address], 07/01/2024 14:57:12 Result Notes None recorded. Problems Name Problem SNOMED Code Status Onset Date Resolution Date Notes Provider Name and Address Organization Details Recorded Time Hypertensive disorder 17488870 Active 2022 LINETTE CARRILLO MD [address] [place] [address], [address], [facility] 3 11:26:42 Hyperlipidemia 73245763 Active 2022 LINETTE CARRILLO MD [address] [place] [address], [address], [facility] 3 11:27:10 Hypothyroidism 53554486 Active 2022 LINETTE CARRILLO MD [address] [place] [address], [address], [facility] 3 11:28:27 Spinal stenosis 39108075 Active 20[place] [address] [place] [address], [phone], [facility] 3 11:28:59 Gastroesophage al reflux disease 942688586 Active 2022 LINETTE CARRILLO MD [address] [place] [address], [address], [facility] 3 11:29:18 Solar lentigo 87204888 Active 2022 Rosanna Steph [facility], [facility] 3 15:09:25 Seborrheic keratosis 405220851 Active 2022 Rosanna Steph null, [facility] 3 15:09:25 Multiple benign melanocytic nevi 002190908 Active 2022 Rosanna Steph [facility], [facility] 3 15:09:25 Senile angioma 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 Procedures Surgical History Date Name Laterality Status Provider Name and Address Organization Details Recorded Time 4 EKG completed Renee Barnes [facility] 02/12/2024 08:27:41 3 Stress Test - Nuclear completed LINETTE CARRILLO MD [address] [place] [address], [phone], [facility] 05/27/2022 15:27:08 3 EKG completed Mirtha Short [facility] 05/06/2022 13:58:19 Other completed Mirtha Short [place] [facility] [place] [facility] 05/06/2022 13:57:00 Other completed Mirtha Short [place] [facility] 05/06/2022 13:57:22 Other completed Mirtha Short [place] [facility] 05/06/2022 13:57:39 cataract surgery completed Mirtha Short [facility] 05/06/2022 13:57:47 cataract surgery completed Mirtha Short [facility] 05/06/2022 13:57:56 Imaging Results None recorded. Procedure Notes None recorded. Medical Equipment None Reported. Allergies Allergen ID Allergen Name Allergen Category Reaction Reaction Severity Criticality Documentation Date Start Date Code Code System Note Provider Name and Address Organization Details Recorded Time 196455 gabapenti n medicatio n Not available Not available Not available 05/12/2024 52063 RxNorm Kasandra Christie [facility] 10:46:55 Medications Name Sig Start Date Stop Date Status Note LastModified by Organization Details LastModified Time metoprolol succinate ER 50 mg tablet,exte nded release 24 hr Take 1 tablet every day by oral route. 2022 active Not Available Not Available Not Avai lable meloxicam 15 mg tablet Take 1 tablet every day by oral route. 01/28 completed Not Available Not Available Not Available triamterene 37.5 mg-hydrochl orothiazide 25 mg capsule Take 0.5 capsules every day by oral route. active Not Available Not Available No t Available levothyroxi ne 25 mcg tablet Take 1 tablet every day by oral route. active Not Available Not Available No t Available meloxicam 7.5 mg tablet Take 1 tablet every day by oral route. active Not Available Not Available No t Available esomeprazol e magnesium 40 mg capsule,del ayed release Take 1 capsule every day by oral route. active Not Available Not Available No t Available pravastatin 20 mg tablet Take 1 tablet every day by oral route. active Not Available Not Available No t Available metoprolol succinate ER 25 mg tablet,exte nded release 24 hr Take 1 tablet every day by oral route. 06/11 completed Not Available Not Available Not Available irbesartan 150 mg tablet Take 1 tablet every day by oral route. 2023 active Not Available Not Available Not Avai lable irbesartan 300 mg tablet Take 1 tablet every day by oral route. active Not Available Not Available No t Available magnesium 250 mg (as magnesium oxide) tablet Take 1 tablet every day by oral route. 01/28 completed Not Available Not Available Not Available potassium 20 mg chewable tablet Take 1 tablet every day by oral route. active Not Available Not Available No t Available Vitamin C 500 mg take 1 tablet daily active Not Available Not Available No t Available aspirin 81 mg takes 1 tablet daily active Not Available Not Available No t Available Co Q-10 200 mg takes 1 tablet daily active Not Available Not Available No t Available calcium +D 600mg/500 mg QD active Not Available Not Available No t Available Vitamin D3 qd 05/07 completed Not Available Not Available Not Available esomeprazol e magnesium 05/07 completed Not Available Not Available Not Available melatonin 10 mg tablet Take 1 tablet every day by oral route. active Not Available Not Available No t Available Multi Vitamin qd active Not Available Not Available Not Available Adult Aspirin Regimen 81 mg tablet,nadira yed release Take 1 tablet every day by oral route. 05/27 completed Not Available Not Available Not Available magnesium 200 mg (as magnesium oxide) chewable tablet Take 1 tablet every day by oral route. active Not Available Not Available No t Available Glucosamine Chondroitin 1500mg/50 0mg takes 1 tablet daily active Not Available Not Available No t Available Vitals Date Recorded Body height Body mass index (BMI) Body weight Heart rate Oxygen saturation Oxygen saturation in Arterial blood by Pulse oximetry Systolic And Diastolic Provider Name and Address Organization Details Last Updated DateTime 3 156.21 cm 27.9 kg/m2 73750.8 6 g 91 /min 99 % 99 % 132/70 mm[Hg] Mirtha Estrella [facility] 3 15:12:37 Date Recorded Body height Body mass index (BMI) Body weight Oxygen saturation Oxygen saturation in Arterial blood by Pulse oximetry Heart rate Systolic And Diastolic Provider Name and Address Organization Details Last Updated DateTime 4 156.21 cm 27.8 kg/m2 33228.1 4 g 99 % 99 % 75 /min 124/72 mm[Hg] Renee Barnes [facility] 4 08:35:29 Social History Question Answer Notes LastModified by Organizat ion Details LastModified Time Tobacco Smoking Status Never Smoker Mirtha Estrella [facility] 05/06/2022 13:56:30 What Was The Date Of Your Most Recent Tobacco Screening? 02/12/2024 [email or web address] Information not available 02/12/2024 Has Tobacco Cessation Counseling Been Provided? No Information not available 05/06/2022 Sex: Unknown Functional Status Question Answer Note LastModified by Organizat ion Details LastModified Time Do you use any illicit or recreational drugs? No [email or web address] Information not available 05/06/2022 Do you or have you ever used any other forms of tobacco or nicotine? No [email or web address] Information not available 05/06/2022 What is your level of alcohol consumption? Occasional [email or web address] Information not available 05/06/2022 Mental Status None recorded. Family History Relationship Description Onset Age of this Age Resolved Age Notes LastModified by Organization Details LastModified Time Father Heart disease [email or web address] Not available 2022 13:55:29 Father Hypertensive disorder [email or web address] Not available 2022 13:55:54 Mother Alzheimer's disease [email or web address] Not available 2022 13:55:40 Unspecified Relation Diabetes mellitus [email or web address] Not available 2022 13:55:47 Medical History Condition Response Heart Disease Y Thyroid Problems Y Hypertension Y High Cholesterol Y Gynecological HistoryNo gynecological history recorded. Obstetrics History GPAL:G 0 P 0 0 0 0 Past Encounters Encounter ID Performer Location Encounter Start Date Encounter Closed Date Diagnosis/Indication Diagnosis SNOMED-CT Code Diagnosis ICD10 Code Diagnosis IMO Codes Diagnosis Note [id number] LINETTE CARRILLO MD CARDIOLOG Y [address] [place],[address] [place] [address] 5 05/06/2022 13:45:10 05/06/2022 14:33:20 Overweight 052882783 E66.3 Ventricula r premature complex 578815996 I49.3 The patient demonstrat es ventricula r bigeminy. I suspect the conduction abnormalit y noted on the echocardio gram was due to this. The PVC burden will be assessed. Stress testing will be performed to assess for exercise-i nduced ventricula r tachycardi a as well as to rule out occult underlying coronary artery disease. Recommenda tions be based upon the results of these examinatio ns. [id number] LINETTE CARRILLO MD [facility] [address] [place] [address] 5 05/06/2022 15:11:06 05/06/2022 15:11:33 [id number] LINETTE CARRILLO MD CARDIOLOG Y [address] [place],[address] [place], [place] [address] 05/27/2022 12:15:31 05/27/2022 16:06:57 Overweight 256447458 E66.3 Coronary atherosclerosis 367723685 I25.10 This case demonstrat es an abnormal EKG consistent with a prior anterolate ral HI. Her nuclear perfusion imaging study today shows a mid to distal fixed anterior wall defect. She has an 18% PVC burden. I think a diagnostic confirmati on of coronary artery disease is necessary and cardiac catheteriz ation will be pursued with further recommenda tions to follow. [id number] LINETTE CARRILLO MD [facility] [address] [place] [place] [address] 05/27/2022 12:15:06 05/27/2022 15:31:07 [id number] LIDIA RIVAS MD [place] [address] [place] [phone] 05/07/2023 10:45:55 05/07/2023 11:07:37 Multiple benign melanocytic nevi 191642770 D22.5 - Benign lesions seen on exam today- SPF 30 or higher broad-spec trum sunscreen recommende d with re-applica tion every 2 hours- Discussed sun protection measures, including wide-brimm ed hat, sun-protec tive clothing, and avoidance of sun during peak hours of 10am-4pm- Avoid tanning beds as these can increase the chances of all 3 types of skin cancer- Instructed to monitor for changes and to call us for appointmen t with any changing or worrisome lesions Seborrheic keratosis 394 272559 L82.1 - Benign overgrowth s of skin - Hereditary Senile angioma 6415584 I 78.1 - Benign blood vessel growths - Hereditary Solar lentigo 27735814 L 81.4 - Benign brown spots - Sun-induce d [id number] LINETTE CARRILLO MD CARDIOLOG Y [address] [place] [address] 02/12/2024 08:26:00 02/12/2024 09:10:06 Syncope 409441564 R55 I think based on the patient's history that it is likely her episode of syncope was vagally mediated. However she has demonstrat ed a PVC burden in the past associated with an abnormal EKG and wall motion abnormalit y by echo. I have suggested we repeat her echo and reassess her PVC burden with a 3-day monitor as well as assess a CMR to make sure there is no underlying scar or fibrosis that could be responsibl e for a more serious arrhythmic etiology of her syncopal episode. [id number] LIDIA RIVAS MD [address] [place] [address] 05/12/2024 10:37:29 05/12/2024 11:04:01 Multiple benign melanocytic nevi 973037656 D22.5 - Benign lesions seen on exam today- SPF 30 or higher broad-spec trum sunscreen recommende d with re-applica tion every 2 hours- Discussed sun protection measures, including wide-brimm ed hat, sun-protec tive clothing, and avoidance of sun during peak hours of 10am-4pm- Instructed to monitor for changes and to call us for appointmen t with any changing or worrisome lesions Seborrheic keratosis 394 210494 L82.1 - Benign overgrowth s of skin - Hereditary Senile angioma 8936279 I 78.1 - Benign blood vessel growths - Hereditary Solar lentigo 36872793 L 81.4 - Benign brown spots - Sun-induce d Health Concerns Section Related Observation LastModified by Organization Detai ls LastModified Time None Recorded Concern Status LastModified by Organization Details LastModified Time None Recorded Advance Directives Directive None Recorded Payers Insurance Date Sequence Insurance Name Policy Number Policy Marcelino Covered Member ID Marcelino Member ID Guarantor Name 05/09/2024 2 [place] [employer] [address] [place] F Case [id number] [place] Case 05/09/2024 1 [place] Case [id number] [place] [employer] Case Notes Date Note Type Note Provider Name and Address Organization Details Recorded Time 05/27/2022 text/html Mrs. Herman is seen in f/u for ventricular bigeminy and abnormal echo reporting a septal WMA consistent with a conduction abnormality but was otherwise normal. She had an abnormal ECG suggestive of an old anterolateral HI. E patch has shown an 18% PVC burden Nuclear perfusion imaging today shows a small moderate intensity fixed defect of the mid to distal anterior wall. History includes:1. HLP on statin Rx2. HTN3. Hypothyroidism4. Esophageal stricture s/p dilatation Her current HDL is 52 with an LDL of 50 and total cholesterol 114. LINETTE CARRILLO MD [address] [place], [address], [facility] 05/27/2022 15:25:42 05/07/2023 text/html ROS as noted in the [facility] annual skin check (no hx) LIDIA RIVAS MD [address] [place], [address], [facility] 05/07/2023 11:18:09 02/12/2024 text/html ROS as noted in the [facility] Mrs. Herman is seen in f/u after an episode of syncope. The patient experienced an episode syncope while sitting on a plane. She had about 6 hours of interrupted sleep before arising at 4 in the morning. She states she felt queasy after she awoke. She ate a biscuit with sausage and felt a little bit more nausea. While sitting in the plane she fell asleep. She then awoke feeling hot and clammy with nausea. She experienced syncope and felt that she was out for a brief period of time. She reports that she she could hear bystanders talking. She was attended to by 3 nurses who demonstrated initial blood pressure of 80/60 that then rolanda to 140/110 after she was placed in a semirecumbent position. The flight was not diverted but upon arrival she was evaluated by a medical team. An EKG was obtained and showed no acute changes. I have personally reviewed this EKG. At no point were there any comments by healthcare providers of the patient having an abnormal heart rhythm. She presents twice daily blood pressure log demonstrating systolics as low as 88 and no higher than 130 mmHg. She has had no clinical recurrence and remains free of any sense of palpitations, dyspnea on exertion, PND, orthopnea, or edema. She had previously been evaluated for ventricular bigeminy and abnormal echo reporting a septal WMA consistent with a conduction abnormality but was otherwise normal.She had an abnormal ECG suggestive of an old anterolateral HI.E patch has shown an 18% PVC burdenNuclear perfusion imaging showed a small moderate intensity fixed defect of the mid to distal anterior wall.History includes:1. HLP on statin Rx - LDL 522. HTN3. Hypothyroidism4. Esophageal stricture s/p dilatation LINETTE CARRILLO MD [address] [place], [address], [facility] 02/12/2024 08:55:07 05/12/2024 text/html ROS as noted in the [facility] annual skin check(no hx) LIDIA RIVAS MD [address] [place], [address], [facility] 05/12/2024 11:00:27 OBGyn Episode No OBEpisode recorded.
--- OUTSIDE RECORDS SUMMARY | 2025-02-11 15:27 | XMS_ITS | Clinical Summary ---
Author Organization [facility] Address [address] [place] [address] Care Team Providers Care Pct Name Role Phone Lane Manning MD Primary Care Provider [phone] Allergies No known active allergies Medications metoprolol [...] (05/25/2019): Added automatically from request for surgery [id number] Family History Medical History Relation Name Comments [...] (1 - 1- dose 75+ series) 2021 INFLUENZA VACCINE 11/26/2024 02/02/2020, , 02/03/2017 COVID-19 Vaccine ( - season) 12/27/202411/2020, 05/04/2020 TDAP/TD VACCINES (3 - Td or Tdap) 05/05/2027 018, 07/02/1996 Medical Devices Implanted Type Area Gas Worker Device Identifier Shelf Expiration Date Model / Serial / Lot Cmt Bone Simplex/P Full Dose 10/Pk - [id number] Implanted:Qty : 2 on 10/21/2019 by Rome Garcia MD at [facility] Implant Left: Knee CHIDI ELVIA 06/25/2021 [id number] / / [id number] Sut Contrl Tiss Stratafix Symm Pds Plus Avelina Ct-1 45cm - [id number] Implanted:Qty : 1 on 10/21/2019 by Rome Garcia MD at [facility] Implant Left: Knee ETHICON DIV OF KATHERINE [id number] / / Sut Contrl Tiss Stratafix Spiral Mncryl Ud 3/0 Pls 60cm - [id number] Implanted:Qty : 1 on 10/21/2019 by Rome Garcia MD at [facility] Implant Left: Knee ETHICON [employer]O [employer] DIV OF Benitez AND Benitez [id number] / / Pat Resrf Gen2 7.5x29mm - [id number] Implanted:Qty : 1 on 10/21/2019 by Rome Garcia MD at [facility] Implant Left: Knee KEY AND NEPHEW 07/11/2029 [id number] / / [id number] Comp Fem Legion Oxinium Ps Nrw Sz4n Lt - [id number] Implanted:Qty : 1 on 10/21/2019 by Rome Garcia MD at [facility] Implant Left: Knee KEY AND NEPHEW 06/27/2029 [id number] / / [id number] Base Tib/Kn Gen2 Nonpor Ti Sz2 Lt - [id number] Implanted:Qty : 1 on 10/21/2019 by Rome Garcia MD at [facility] Implant Left: Knee KEY AND NEPHEW 07/06/2029 [id number] / / [id number] Insrt Art Legion Ps Hf Xlpe Sz1to2 12mm - [id number] Implanted:Qty : 1 on 10/21/2019 by Rome Garcia MD at [facility] Implant Left: Knee KEY AND NEPHEW 06/28/2027 [id number] / / [id number] Totl Kn [place] Key Nephew - [id number] Implanted:Qty : 1 on 10/21/2019 by Rome Garcia MD at [facility] Implant Left: Knee KEY AND NEPHEW [employer] SN2 / / Knee Hardware Insurance [place] [id number] ANTH BLUE CROSS MEDICARE A & B Advance Directives Documents on File Type Date Recorded Patient It Systems Administrator Expl anation LIVING WILL - SCAN 10/18/2019 1:17 PM IAM NG WILL/SURROGATE, 11/20/2014 * CPR (Attempt to Resuscitate) (Latest Code Status on File) Date Activated Date Inactivated Comments 10/21/2019 10:38 AM 10/21/2019 6:07 PM Question Answer Comments Code Status (Patient has no pulse and is not breathing): CPR (Attempt to Resuscitate) Medical Interventions (Patie nt has pulse or is breathing): Full Care Teams Pct Relationship Specialty Start Date End Date Lane Manning MD [address] [place] [facility] [address] [place] [address] PCP - General 08/15/15
--- OUTSIDE RECORDS SUMMARY | 2025-02-11 15:27 | XMS_ITS | Patient Health Record ---
[facility] [address] [facility] [facility] [address] [facility] [address] [place] [id number] Care Team Providers Care Medical Administrative Technician Name Role Phone Benitez Manning Primary Care Provider EdwinOlive moe Unavailable [phone] Allergies Allergen (clinical drug ingredient) Drug/Non Drug Allergy documented on EMR Reaction Allergy Type Onset Date Status angiotensin-converting enzyme inhibitor (FN) ARLEN Inhibitors cough Drug Allergy Acti ve Results Component Value Reference Range Notes P-Comprehensive Metabolic Pa alisha (CMP) Reviewed date:02/18/2024 04:29:43 PM Interpretation:satisfactory Performing Lab: Notes/Report: Test performed by [facility], [address] , [address], [place] [address] Jerson Virk MD, Automatic Wheel Line Operator CLIA: [id number] Sodium 132 135-145 mmol/L Potassium 4.6 3.5-5.3 [...] 0.3 <0.2-1.2 mg/dL A/G Ratio 1.4 1.1-2.5 P-Comprehensive Metabolic Pa alisha (CMP) Reviewed date:06/30/2024 04:50:16 PM Interpretation:Normal Performing Lab: Notes/Report: Test performed by [facility] [address] , [address], [place] [address] Jerson Virk MD, Automatic Wheel Line Operator CLIA: [id number] Sodium 135 135-145 mmol/L Potassium 4.7 3.5-5.3 [...] Interpretation:Normal Performing Lab: Notes/Report: Test performed by [facility] [address] , [address], [place] [address] Jerson Virk MD, Automatic Wheel Line Operator CLIA: [id number] Magnesium 2.0 1.6-2.4 mg/dL P-TSH Reviewed date:06/30/2024 04:50:16 PM Interpretation:Normal Performing Lab: Notes/Report: [facility] by [facility] [address] , [address], [place] [address] Jerson Virk MD, Automatic Wheel Line Operator CLIA: [id number] TSH 2.20 0.43-5.25 mU/L P-Comprehensive Metabolic Pa alisha (CMP) Reviewed date:10/22/2024 12:18:27 PM Interpretation:gluc 111, bun 27 Performing Lab: Notes/Report: Test performed by [facility] [address] [place] [address] , [address], [place] [address] Jerson Virk MD, Automatic Wheel Line Operator CLIA: [id number] Sodium 135 135-145 mmol/L Potassium 4.6 3.5-5.3 [...] Interpretation:38 Performing Lab: Notes/Report: Test performed by [facility] [address] [place] [address] , [place] [address] Jerson Virk MD, Automatic Wheel Line Operator CLIA: [id number] Erythrocyte Sedimentation Rate (ESR), Automated 38 <31 mm/hr P-Lipid Panel Reviewed date:10/22/2024 12:18:27 PM Interpretation:Normal Performing Lab: Notes/Report: Test performed by [facility] [address] [place] [address] , [address], [place] [address] Jerson Virk MD, Automatic Wheel Line Operator CLIA: [id number] Cholesterol 140 <200 mg/dL Triglycerides 121 <150 [...] Interpretation:Normal Performing Lab: Notes/Report: Test performed by [facility] [address] [place], [place] [address] [address] , [place] [address] Jerson Virk MD, Automatic Wheel Line Operator CLIA: [id number] Magnesium 2.0 1.6-2.4 mg/dL P-TSH Reviewed date:10/22/2024 12:18:27 PM Interpretation:Normal Performing Lab: Notes/Report: Test performed by [facility] , [place] [address] Jerson Virk MD, Automatic Wheel Line Operator CLIA: [id number] TSH 2.49 0.43-5.25 mU/L Urinalysis - Inhouse (Not ye t reviewed by provider) Interpretation: Performing Lab: Notes/Report: Color/Clarity yellow/clear Leuk neg Nitrite neg Urobili 3.2 Protein neg pH 6.0 Blood neg Sp. Gr. 1.015 Ketone neg Bili neg Gluc neg Bone density Reviewed date:01/04/2025 10:14:12 AM Interpretation:Osteopenia Performing Lab: Notes/Report: Osteopenia Medications Medication SIG (Take, Route, Frequency, Duration) Notes Start Date End Date Status Irbesartan 300 MG 1 tab(s) orally once a day; Duration: 90 days Active Glucosamine Chond MSM Formula - 1 tab(s) orally 3 times a day Active Raloxifene HCl 60 MG 1 tablet Orally Onc e a day; Duration: 90 days 01/05/2025 Active CoQ10 100 MG 1 cap(s) orally once a day Active Triamterene-HCTZ 37.5-25 MG Take 1 table t by mouth once daily; Duration: 90 Active Aspirin 81 MG 1 tab(s) orally once daily; Duration: 30 day(s) Active Melatonin 10 MG 1 cap(s) orally once a day (at bedtime) Active Omeprazole 40 MG take 1 capsule orall y once a day; Duration: 90 days Active Multiple Vitamin - 1 cap(s) orally once daily; Duration: 30 day(s) Active Meloxicam 15 MG 1 tablet Orally Once a day; Duration: 90 days Active Levothyroxine Sodium 25 MCG Take 1 table t by mouth once daily; Duration: 90 Active Calcium + Vitamin D3 600-5 MG-MCG 1 tab(s) orally once a day; Duration: 30 day(s) Active SV Magnesium 250 MG Take 1 tablet by aretha th once daily; Duration: 90 Active Vitamin C 500 MG 1 cap(s) orally once daily; Duration: 0 Active Metoprolol Succinate ER 50 MG 1 tablet Orally Once a day; Duration: 90 days Active Pyridium 200 MG 1 tablet after meals Orally Three times a day, prn 02/11/2025 Active Pravastatin Sodium 20 MG 1 tab(s) [...] months and older IM Intramuscular 04/03/2010 Administered hMonzohs-uiwrkqnie-hdjithr e pts. IM Intramuscular 04/26/2013 Administered Problems Problem Type SNOMED Code ICD Code Onset Dates Problem Status W/U Status Risk Notes Problem Hyponatremia (16200452) Hyponatremia (E87.1) Active confirmed Problem Hyperlipidemia (23452576) Hyperlipidemia (E78.5) Active confirmed Problem Essential hypertension (56987289) Essential hypertension (I10) Active confirmed Problem Osteopenia (990598965) Osteopenia (M85.80) Active confirmed Problem Sore throat (960154809) Sore throat (J02.9) Active confirmed Problem Hiatal hernia (30519594) Hiatal hernia (K44.9) Active confirmed Problem Hyperlipidemia (91473321) Other hyperlipidemia (E78.4) Active confirmed Problem Chronic pain (66722949) Other chronic pain (G89.29) Active confirmed Problem Metabolic encephalopathy (03077687) Metabolic encephalopathy (G93.41) Active confirmed Problem Sciatica (04077902) Lumbago with sciatica, left side (M54.42) Active confirmed Problem History of gastrointestinal disease (023572805) Personal history of other diseases of the digestive system (Z87.19) Active confirmed Problem Spinal stenosis of lumbar region (84071828) Spinal stenosis of lumbar region (M48.06) Active confirmed Problem Acquired hypothyroidism (858817158) Acquired hypothyroidism (E03.9) Active confirmed Problem Gastroesophageal reflux disease (disorder) (252125578) Chronic GERD (K21.9) Active confirmed Problem Skin sensation disturbance (81644064) Paresthesias in left hand (R20.2) Active confirmed Problem Dysphagia (48664808) Pharyngoeso phageal dysphagia (R13.14) Active confirmed Problem Cardiac dysrhythmia (004148972) Cardiac dysrhythmia, unspecified (I49.9) Active confirmed Problem Atrophic gastritis (07820754) Chronic gastritis without bleeding, unspecified gastritis type (K29.50) Active confirmed Problem Pure hypercholesterolemia (041654804) Pure hypercholesterolemia (E78.00) Active confirmed Problem Pure hypercholesterolemia (721225543) Pure hypercholesterolemia, unspecified (E78.00) Active confirmed Problem Postprocedural state s (603659853) Other specified postprocedural states (Z98.890) Active confirmed Problem Carpal tunnel syndrome (80302482) Carpal tunnel syndrome on both sides (G56.03) Active confirmed Problem Sacroiliac joint darvin n (382101396) Sacroiliac joint pain (M53.3) Active confirmed Problem Spinal stenosis of lumbar region (00347631) Spinal stenosis of lumbar region, unspecified whether neurogenic claudication present (M48.061) Active confirmed Problem Gastroesophageal reflux disease with esophagitis (disorder) (464041185) Gastroesophageal reflux disease with esophagitis without hemorrhage (K21.00) Active confirmed Vital Signs Heart Rate 82 /min 02/11/2025 Blood pressure diastolic 70 mm Hg 02/11/2025 Height 62 in 02/11/2025 Blood pressure systolic 110 mm Hg 02/11/2025 Weight 133 lbs 02/11/2025 BMI 24.32 kg/m2 02/11/2025 Encounters Encounter Location Date Provider Diagnosis [facility] [address] [place] [facility] [address] [place] [id number] 02/12/2024 Benitez Manning Syncope, unspecified syncope type R55 and Encounter for immunization Z23 [facility] [address] [place] [facility] [address] [place] [id number] 02/23/2024 Benitez Manning Syncope, unspecified syncope type R55 and Essential hypertension I10 [facility] [address] [facility] [address] [place] [id number] 06/28/2024 Benitez Manning Essential hypertensi on I10 ; Pure hypercholesterolemia E78.0 ; Acquired hypothyroidism E03.9 ; Spinal stenosis of lumbar region M48.06 ; Leg cramps R25.2 and Cardiac dysrhythmia, unspecified I49.9 [facility] [address] [place] [facility] [address] [place] [id number] 07/19/2024 Benitez Manning Essential hypertensi on I10 [facility] [address] [place] [facility] [address] [place] [id number] 10/18/2024 Benitez Manning Essential hypertensi on I10 ; Sacroiliac joint pain M53.3 ; Pure hypercholesterolemia E78.0 ; Acquired hypothyroidism E03.9 ; Spinal stenosis of lumbar region M48.06 ; Osteopenia M85.80 ; Low back pain associated with a spinal disorder other than radiculopathy or spinal stenosis M54.50 ; Hyperlipidemia E78.5 and BMI 27.0-27.9,adult Z68.27 [facility] [address] [place] [facility] [address] [place] [id number] 11/25/2024 Benitez Maninng Sacroiliac joint darvin n M53.3 ; Hyperlipidemia E78.5 ; Encounter for weight management Z76.89 and BMI 27.0-27.9,adult Z68.27 [facility] [address] [place] [facility] [address] [place], [place] [id number] 02/11/2025 Olive Crowdy Dysuria R30.0 ; Acut e midline low back pain without sciatica M54.50 and Sacroiliac joint pain M53.3 [facility] [address] [place], [place] [id number] 02/16/2024 Benitez Manning [facility] [address] [place], [place] [id number] 07/08/2024 Benitez Manning [facility] [address] [place], [place] [id number] 10/11/2024 Benitez Manning [facility] [address] [place], [place] [id number] 10/22/2024 Benitez Manning [facility] [address] [place], [place] [id number] 11/08/2024 Benitez Manning Screening for osteop orosis Z13.820 and Osteopenia M85.80 [facility] [address] [place], [place] [id number] 01/04/2025 Benitez Manning [facility] [address] [place], [place] [id number] 02/02/2025 Benitez Manning Assessments Encounter Date Diagnosis (ICD Code) Assessment [...] n (ICD-10 - M53.3) continue current therapy 02/11/2025 Dysuria (ICD-10 - R30.0) 02/11/2025 Acute midline low ba ck pain without sciatica (ICD-10 - M54.50) 02/11/2025 Sacroiliac joint darvin n (ICD-10 - M53.3) 11/25/2024 Encounter for weight management (ICD-10 - [...] Treatment Pending Test Test Name Order Date X ray : Spine, lumbosacral 02/11/2025 Urinalysis - Inhouse 02/11/2025 X ray : SI joint, bilateral 02/11/2025 Next Appt Details Provider Name:Olive lawrence, 02/11/2025 02:30:00 PM, [address], [place], [id number], Provider Name:Benitez Walters er, 04/01/2025 09:45:00 AM, [address], [place], [id number], Insurance Providers Payer Name Payer Address Payer Phone Subscriber Number Group Number Insured Name Patient Relationship to Insured Coverage Start Date Coverage End Date MEDICARE PART B [address] [address] [place] [address] [phone] [id number] CASE, JUANA Self - patient is the insured ANTH BLUE CROSS[employer]UE SHIELD [address] [place] [address] [id number] CASE, JUANA Self - patient is [...] 03/2008 Knee Replacement (R), Dr. Rome Garcia, [facility] 08/18/2015 Epidural steroid, Dr. Papito Costa 02/26 Holter Monitor - Negative 2017 Colonoscopy, Dr. rTipp 2014 LT Knee Replacement 10/21/2019 Hiatal Hernia Repair 04/2020 Bilateral Cataract 04/2022 LT Carpal Tunnel 02/03/2023 Hospitalization History Reason Date(Month/Year) Pneumonia 08/2014
--- OUTSIDE RECORDS SUMMARY | 2025-02-11 15:27 | XMS_ITS | Clinical Summary ---
Author Organization [facility] Address [address] [place] [address] Care Team Providers Care Pick Up Worker Name Role Phone Lane Manning MD Primary Care Provider [phone] Allergies Active Allergy Reactions Criticality Noted Date [...] Health Maintenance Due Date Last Done Comments [facility]-Bone Density Scan 1946 [facility]-Depression Screening 1946 [facility]-Hepatitis C Screening 1945 [facility]-Medicare Annual Wellness (AWV) 1945 [facility]-/Child/Adol SDOH Screenings 1946 [facility]-Obesity Intervention 1952 [facility]- SDOH Screenings 1964 [facility]-Adult SDOH Screenings 1964 [facility]-RSV Vaccine: 60+ Years or (1 - 1-dose 75+ series) 2021 [id number] Vaccine (2024- season) 2024 11/05/2023, 02/26/2023, 01/09/2022, Additional history exists [facility]-Influenza [...] age to complete this [place] [address] [facility] Care Teams Pick Up Worker Relationship Specialty Start Date End Date Lane Manning MD [address] [place] [id number] PCP - General 02/09/21
--- NOTE | 2025-02-11 15:29 | XR_ITS ---
FINAL REPORT CLINICAL HISTORY: acute midline pain COMPARISON: none FINDINGS: SACROILIAC JOINTS SERIES Three views were obtained. There is no acute fracture or dislocation. There are severe degenerative changes of the bilateral SI joints. No ankylosis or evidence of erosion. No soft tissue abnormality is seen. IMPRESSION: Advanced degenerative changes without acute bony abnormality. Reviewed, Interpreted and Dictated by Mikey Hammer MD Transcribed by Lynda Ortez Authenticated and [facility]
--- NOTE | 2025-02-11 15:29 | XR_ITS ---
FINAL REPORT CLINICAL HISTORY: ACUTE MIDLINE PAIN COMPARISON: none FINDINGS: LUMBOSACRAL SPINE SERIES Five views of the lumbosacral spine were obtained. There is no fracture present. There is no malalignment. There is severe diffuse degenerative disc disease. Moderate levoscoliosis is noted. IMPRESSION: Severe degenerative change without acute process. Reviewed, Interpreted and Dictated by Mikey Hammer MD Transcribed by Lynda Ortez Authenticated and [facility]
== END 2025-02-11 23:59 | disposition home or self-care (01) ==
LOC: RAD 15:23
PROVIDERS: PCP Family Medicine; Visit Provider Physician Assistant
DX: M47.896 Other spondylosis, lumbar region (principal); M51.379 Other intervertebral disc degeneration, lumbosacral region without mention of lumbar back pain or lower extremity pain; M41.9 Scoliosis, unspecified
CPT/HCPCS: 72110; 72202

== ENCOUNTER 2025-04-19 09:31 | Day surgery (SDC) | payer MEDICARE, BC, SELFPAY ==
[2025-04-19] MEDS: LIDOCAINE 1% 5ML PF VIAL 5 ML (09:35)
[2025-04-19 09:36] VITALS: BP 121/77; PULSE 91; RESP 16; O2SAT 96; BMI 24.1
[2025-04-19 09:40] VITALS: BP 132/83; PULSE 83; RESP 18; O2SAT 96
[2025-04-19] MEDS: BUPIVACAINE 0.25% 10ML INJ 25 MG IJ (09:40)
[2025-04-19 09:41] VITALS: BP 132/83; PULSE 83; RESP 18; O2SAT 96
[2025-04-19 09:45] VITALS: BP 121/77; PULSE 91; O2SAT 96
--- NOTE | 2025-04-19 09:48 | EXP.PAIN.PRO ---
Procedure Date: 04/19/25 Time: 09:45 Anesthesiologist:: Janes Parks CRNA Complications:: None Pre-procedure Diagnosis:: Degenerative disc lumbar spine multilevels. Lumbar facet arthropathy. Lumbar spondylosis. Post-procedure Diagnosis:: Same. Indications for Procedure:: Patient is a pleasant 79-year-old female who comes to clinic today for round 1 of lumbar medial branch blocks/facet injections at the bilateral L4-5, L5-S1 level. Patient describes low lumbar back pain as constant, dull, aching. She reports having difficulty with lumbar flexion, extension, left and right rotation. She rates her pain 7/10. Procedure Details:: Informed consent was obtained and the risk and benefits of the procedure was explained to the patient. Patient was taken to the procedure room where noninvasive monitors were placed, including noninvasive blood pressure cuff as well as pulse oximeter. The area over the lumbar spine was cleansed using chlorhexidine as a cleansing solution. I anesthetized the skin and subcutaneous tissues with 1% Lidocaine. I placed 22-gauge spinal needles into the facet joint/ medial branches of L4-L5, and L5-S1 bilaterally. Needle placement was confirmed with fluoroscopy. After confirmation of needle placement, each site was injected with 1 mL of 1% lidocaine and 0.25 % Marcaine 1 mL. Patient tolerated the procedure without difficulty. There were no complications. Plan and Disposition:: Patient was discharged without incident.
== END 2025-04-19 09:45 | disposition home or self-care (01) ==
LOC: SC.PAINP 09:33
PROVIDERS: PCP Family Medicine; Visit Provider Nurse Anesthetist, Certified Registered
DX: M51.360 Other intervertebral disc degeneration, lumbar region with discogenic back pain only (principal); M47.816 Spondylosis without myelopathy or radiculopathy, lumbar region; I10 Essential (primary) hypertension; E78.5 Hyperlipidemia, unspecified; Z79.02 Long term (current) use of antithrombotics/antiplatelets; Z79.899 Other long term (current) drug therapy
CPT/HCPCS: 64493; 64494; J0665; J2003